=== PATIENT | male | born 1965 | race Caucasian/White ===

== ENCOUNTER 2024-06-24 10:07 | Outpatient (AMB) | payer OTHER, SELFPAY ==
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
== END 2024-06-24 11:15 | disposition home or self-care (01) ==
LOC: HO.HOP 10:07
PROVIDERS: PCP Physician Assistant Medical; Visit Provider Clinical Nurse Specialist Psychiatric/Mental Health
DX: F33.41 Major depressive disorder, recurrent, in partial remission (principal); F41.1 Generalized anxiety disorder; F90.2 Attention-deficit hyperactivity disorder, combined type
CPT/HCPCS: 99215; 99417

== ENCOUNTER → 2024-06-24 10:07 | Outpatient (BNVA) | payer OTHER, SELFPAY | PROVIDERS: PCP Physician Assistant Medical; Visit Provider Clinical Nurse Specialist Psychiatric/Mental Health ==

== ENCOUNTER 2024-08-05 11:43 | Outpatient (AMB) | payer OTHER, SELFPAY ==
--- NOTE | 2024-08-05 11:40 | A.OFFPSYCH_ITS ---
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: depression [employer] Required: No Medication List - Last Reconciled 08/05/24 by Jessica Li APRN blood-glucose sensor (FreeStyle Joey 3 Sensor device) As directed bupropion HCl XL (Wellbutrin XL) 150 mg PO QAM buspirone 10 mg PO BID empagliflozin (Jardiance) 25 mg PO DAILY fenofibrate 160 mg PO DAILY glyburide 2.5 mg PO DAILY insulin aspart (niacinamide) 100 unit/mL (3 mL) (Fiasp FlexTouch U-100 Insulin) subcut insulin glargine U-300 conc (Toujeo SoloStar U-300 Insulin) units subcut lamotrigine 200 mg PO BID levothyroxine (Synthroid) 200 mcg PO DAILY levothyroxine (Synthroid) 50 mcg PO DAILY lisinopril 40 mg PO DAILY lorazepam 1 mg PO DAILY PRN metformin ER 500 mg PO TID metoprolol succinate ER 25 mg PO DAILY niacin ER 1,000 mg PO DAILY omega-3 acid ethyl esters 2 caps PO BID pregabalin 75 mg PO BID rosuvastatin 40 mg PO DAILY sertraline 100 mg PO DAILY tadalafil mg PO tirzepatide (Mounjaro) mg subcut HPI- Psychiatric Chief Complaint: depression HPI Narrative: pt reports mood is improved. He continues to struggle with attention issues. did not start the increased wellbutrin yet- he forgot to product picker the new dose. Overall doing better; increased self care; has restarted with therapist. no SI or HI . Past Psychiatric History: HCC: He is dx with MDD, JAMISON andADHD; dx with ADHD age 42; He and previous provider have been considering Bipolar Ii disorder. He has never been hospitalized; Medication Trials: Ritalin-ineffective Amphetamine salt- ? worse symptoms Subjective Subjective Subjective Medication Compliance: Yes Side effects from medications: No Review of Systems Medical Review of Systems: unchanged Mental Status Exam Mental Status Exam Patient Appearance: Well Grooomed and Appropriate Patient Orientation: Person, Time and Situation Level of Consciousness: Awake and Appropriate Patient Behavior: Appropriate Mood Description: Calm Affect Description: Calm Patient Cognition Impaired: No Ability to Follow Directions: Good Speech Pattern: Appropriate Memory Description: Intact Hallucinations: None Delusions: Not Present Thought Process: Distracted Thought Content: positive for Intact Judgement: [facility] Telehealth Platform: Other (please specify) ([email or web address]) Location of provider rendering services: practice address Location of patient: address on file Patient Identification confirmed using: Name, : Yes Telehealth method: video Patient verbally consented to treatment: Yes Patient informed of any privacy concerns related to visit: Yes Minutes spent on Phone/Video with Pt.: 30 Assessment and Plan Assessment & Plan (1) ADHD (attention deficit hyperactivity disorder), combined type: Status: Acute Code(s): F90.2 - Attention-deficit hyperactivity disorder, combined type (2) JAMISON (generalized anxiety disorder): Status: Acute Code(s): F41.1 - Generalized anxiety disorder (3) Major depressive disorder, recurrent, in partial remission: Status: Acute Code(s): F33.41 - Major depressive disorder, recurrent, in partial remission Plan start wellbutrin XL 150mg qam Medications: Refilled buspirone 10 mg PO BID 180 tabs 1RF lorazepam 1 mg PO DAILY PRN 90 tabs 0RF anxiety/panic sertraline 100 mg PO DAILY 90 tabs 2RF bupropion HCl XL (Wellbutrin XL) 150 mg PO QAM 90 tabs 1RF lamotrigine 200 mg PO BID 180 tabs 1RF Counseling and coordination of Care Pt. Self Management counseling: Maintenance-social rhythm, Sleep hygiene, Behavior activation, General coping skills and Problem solving Medication management counseling: Effectiveness, Side effects, Dosing range, Duration, Drug interaction and Adherence Diagnosis and Prognosis Counseling: Accuracy of diagnosis, Prognosis over time, Impact of diagnosis on life functions, Impact of family relationship, Problematic behaviors secondary to diagnosis and Adequacy of current interventions Details: I spent 40 minutes reviewing the record, seeing the patient and documenting in the medical record. Counseling provided to the patient/caregiver as outlined below. Addressed miriam ent/caregiver concerns regarding current medication regime including effective adherence. Addressed patient/caregiver concerns regarding diagnosis and prognosis including accuracy of diagnosis, prognosis over time, impact of diagnosis. Addressed patient/caregiver concerns regarding impact of recent stressors. 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
--- OUTSIDE RECORDS SUMMARY | 2024-08-10 08:02 | XMS_ITS | Data Portability ---
Author Organization [facility] [id number] Address [address] [place] [id number] Assessment No assessment recorded. Plan of Treatment Reminders Order Date Submit Date Provider Last Modified By Organization Details Last Modified Time Details Appointments None recorded. Lab None recorded. Referral None recorded. Procedures None recorded. Surgeries None recorded. Imaging None recorded. Medication Orders Augmentin 875 mg-125 mg tablet 2023 [id number], [address] [place], [place], [phone], 4 19:13:10 naproxen 500 mg tablet 2023 024 [id number], [address], [place], [id number], 4 19:13:12 Patient TargetsNo targets recorded. Patient InstructionsNo instructions recorded. Reason for Referral None Reported. Medical Equipment None Reported. Allergies Allergen ID Allergen Name Allergen Category Reaction Reaction Severity Criticality Documentation Date Start Date Code Code System Note Provider Name and Address Organization Details Recorded Time [id number] [place] n rash Not available Not available 01/09/2024 74416 1 [facility] 18:15:13 Medications Name Sig Start Date Stop Date Status Note LastModified by Organization Details LastModified Time metformin 500 mg tablet TAKE 2 TABLETS BY MOUTH TWICE DAILY 01/08 completed Not Available Not Available Not Available Augmentin 875 mg-125 mg tablet Take 1 tablet every 12 hours by oral route with meal(s) for 10 days. 2023 active Not Available Not Available Not Avai lable lamotrigine 200 mg tablet TAKE 1 TABLET (200 MG) BY MOUTH IN AM AND PM active Not Available Not Available No t Available glyburide 5 mg tablet TAKE 1 TABLET BY MOUTH DAILY 01/08 completed Not Available Not Available Not Available Glucagon Emergency Kit 1 mg solution for injection active Not Available Not Available No t Available glyburide 2.5 mg tablet active Not Available Not Available Not Available Synthroid 200 mcg tablet TAKE 1 TABLET BY MOUTH EVERY DAY active Not Available Not Available No t Available lisinopril 20 mg tablet TAKE 1 TABLET BY MOUTH TWICE DAILY active Not Available Not Available No t Available sertraline 100 mg tablet TAKE 1 TABLET BY MOUTH EVERY DAY active Not Available Not Available No t Available bupropion HCl SR 100 mg tablet,12 hr sustained-r elease TAKE 1 TABLET BY MOUTH DAILY IN THE MORNING active Not Available Not Available No t Available buspirone 10 mg tablet TAKE 1 TABLET BY MOUTH TWICE A DAY active Not Available Not Available No t Available niacin ER 250 mg tablet,exte nded release TAKE 1 TABLET BY MOUTH THREE TIMES DAILY active Not Available Not Available No t Available Synthroid 50 mcg tablet active Not Available Not Available Not Available metoprolol succinate ER 25 mg tablet,exte nded release 24 hr TAKE 1 TABLET BY MOUTH EVERY DAY active Not Available Not Available No t Available loteprednol etabonate 0.5 % eye drops,suspe nsion SHAKE LIQUID AND INSTILL 1 DROP IN RIGHT EYE 4 TIMES A DAY DIRECTED 01/08 completed Not Available Not Available Not Available lorazepam 1 mg tablet TAKE 1/2 TO 1 TABLET BY MOUTH DAILY NEEDED FOR ANXIETY/P ANIC active Not Available Not Available No t Available lisinopril 40 mg tablet 01/08 completed Not Available Not Available Not Available metformin ER 500 mg tablet,exte nded release 24 hr active Not Available Not Available Not Available naproxen 500 mg tablet Take 1 tablet twice a day by oral route with meal(s) for 10 days. 2023 active Not Available Not Available Not Avai lable rosuvastati n 40 mg tablet active Not Available Not Available Not Available tadalafil 20 mg tablet TAKE 1 TABLET BY MOUTH 30 MINUTES. TO 1 HOUR PRIOR TO SEXUAL ACTIVITY NEEDED active Not Available Not Available No t Available omega-3 acid ethyl esters 1 gram capsule TAKE 2 CAPSULES BY MOUTH TWICE DAILY active Not Available Not Available No t Available fenofibrate 160 mg tablet TAKE 1 TABLET BY MOUTH EVERY DAY active Not Available Not Available No t Available Humalog KwikPen (U-100) Insulin 100 unit/mL subcutaneou s ADMINISTE R 30 UNITS UNDER THE SKIN THREE TIMES DAILY WITH FOOD 01/08 completed Not Available Not Available Not Available Jardiance 25 mg tablet TAKE 1 TABLET BY MOUTH EVERY DAY active Not Available Not Available No t Available Toujeo SoloStar U-300 Insulin 300 unit/mL (1.5 mL) subcutaneou s pen ADMINISTE R 130 UNITS SUBCUATNE UOSLY EVERY DAY active Not Available Not Available No t Available Fiasp FlexTouch U-100 Insulin 100 unit/mL (3 mL) subcutaneou s pen active Not Available Not Available Not Available FreeStyle Joey 2 Sensor kit REPLACE SENSOR EVERY 14 DAYS active Not Available Not Available No t Available Mounjaro 7.5 mg/0.5 mL subcutaneou s pen injector INJECT 7.5MG UNDER THE SKIN ONE DAY A WEEK 01/08 completed Not Available Not Available Not Available Mounjaro 10 mg/0.5 mL subcutaneou s pen injector ADMINISTE R 10 MG UNDER THE SKIN EVERY WEEK active Not Available Not Available No t Available Dexcom G7 Sensor device active Not Available Not Available Not Available Vitals Date Recorded Body height Body mass index (BMI) Body weight Oxygen saturation Oxygen saturation in Arterial blood by Pulse oximetry Heart rate Body temperature Systolic blood pressure Diastolic blood pressure Provider Name and Address Organization Details Last Updated DateTime 4 182.88 cm 33.9 kg/m2 749083. 09 g 97 % 97 % 75 /min 99 [degF] 136 mm[Hg] 71 mm[Hg] Lori Burns PA - [facility] 4 18:13:45 Social History Question Answer Notes LastModified by Organizat ion Details LastModified Time Are You Currently Employed? Yes Information not available 01/09/2024 Have You Had A Flu Shot This Season? Yes Information no t available 01/09/2024 Have You Had Direct Contact, Or Contact During Intimacy, With Monkeypox Rash, Scabs, Or Body Fluids From A Person With Monkeypox? No Information not available 01/09/2024 What Is Your Relationship Status? Information not available 01/09/2024 Do You Use Any Illicit Or Recreational Drugs? No Information not available 01/09/2024 Have You Recently Traveled Abroad? No Information not available 01/09/2024 Do You Or Have You Ever Used Any Other Forms Of Tobacco Or Nicotine? No Information not available 01/09/2024 Sex: Unknown Functional Status None recorded. Mental Status None recorded. Family History Nothing Reported. Medical History No medical history recorded. Past Encounters Encounter ID Performer Location Encounter Start Date Encounter Closed Date Diagnosis/Indication Diagnosis SNOMED-CT Code Diagnosis ICD10 Code [id number] [address] 03/07/2022 17:13:04 03/07/2022 18:48:51 [id number] [place] [id number] [id number] 01/09/2024 17:25:24 01/09/2024 18:49:34 Dental abscess [id number] K04.7 Health Concerns Section Related Observation LastModified by Organization Detai ls LastModified Time None Recorded Concern Status LastModified by Organization Details LastModified Time None Recorded Advance Directives Directive None Recorded Payers Encounter Date Sequence Insurance Name Policy Number Policy Cabrera Covered Member ID Cabrera Member ID Guarantor Name 03/07/2022 1 [facility] [id number] 1 Steve Golden [id number] Steve Golden 01/09/2024 1 [facility] [id number] 1 Steve Golden [id number] Steve Golden Notes Date Note Type Note Provider Name and Address Organization Details Recorded Time 01/09/2024 text/html 58 yo male c/o p t has mouth, nose and ear pain x 4 dHis L side cheek is swollen+ redness+ teeth swollenPain /10 tried ibu w/o much improvement + h/o DM No feverNo chillsNo nauseaNo vomitingNo coughNo sore throatNo Abdominal painNo diarrheaNo myalgiaNo fatigueNo rash H/o DMuncertain A1CBS in 300 range Ger Tabit, DO [address], [place], [address], PA - [facility] 01/09/2024 19:13:16
--- OUTSIDE RECORDS SUMMARY | 2024-08-10 08:02 | XMS_ITS | Continuity of Care Document ---
Author Organization [facility] Address [address] [place] [id number] Care Team Providers Care Core Stacker Name Role Phone Carole Keating Primary Care Physician [place] [facility] [place] 08[place]/24 [facility] [address] [place] [address] Encounter Type: Triage Allergies, Adverse Reactions, Alerts Substance Criticality Severity Reaction Reaction Severity Status Byetta Prefilled Pen Active Medications BD PEN NEEDL [id number] MIS BD PEN NEEDL [id number] MIS, 0 Refills, Maintenance, 06/07/24 9:50:00 AM EDT Start Date: 06/07/24 Status: Ordered Repeat number: 1 BusPIRone By Mouth, 0 Refills, Maintenance, 05/10/20 3:42:00 PM EDT Start Date: 05/10/20 Status: Ordered Repeat number: 1 Cialis 20 mg oral tablet 1 tablet = 20 mg, By Mouth, Daily, # 30 tablet, 0 Refills, Maintenance, 04/23/20 1:23:00 PM EDT, Tablet, [facility] #[id number], 182.88, cm, 04/20/20 13:47:00 EDT, Height Start Date: 04/23/20 Status: Ordered Quantity: 30.0 Unit: tablet Repeat number: 1 Crestor 40 mg oral tablet 1 tablet = 40 mg, By Mouth, Daily, # 30 tablet, 0 Refills, Maintenance, 07/16/16 11:28:36 AM EST, Tablet Start Date: 07/16/16 Status: Ordered Quantity: 30.0 Unit: tablet Repeat number: 1 Durable Medical Equipment See Instructions, Maintenance, Dexcom glucose sensor (CGM), 07/05/23 10:23:00 AM EST, Supply Start Date: 07/05/23 Status: Ordered Repeat number: 1 fenofibrate 160 mg oral tablet 1 tablet = 160 mg, By Mouth, Daily, # 90 tablet, 3 Refills, Maintenance, 06/07/24 10:24:00 AM EDT, Tablet, [facility], Partial fill upon patient request if the prescription is for a schedule II opioid drug., 182, cm, 06/07/24 9:48:00 EDT, Height, 111, kg, 02/26/24 13:55:00 EDT, Dry Weight Start Date: 06/07/24 Status: Ordered Quantity: 90.0 Unit: tablet Repeat number: 4 GlyBURIDE = 10 mg, By Mouth, 2 times a day, 0 Refills, Maintenance, 04/24/16 11:17:51 AM EDT Start Date: 04/24/16 Status: Ordered Repeat number: 1 HumaLOG KwikPen (Concentrated) = 25 units, Subcutaneous Infusion, 3 times a day before meals, 0 Refills, Maintenance, 04/24/16 11:23:03 AM EDT Start Date: 04/24/16 Status: Ordered Repeat number: 1 Jardiance By Mouth, Daily in AM, 0 Refills, Maintenance, 06/02/23 9:48:00 AM EDT, Partial fill upon patient request if the prescription is for a schedule II opioid drug. Start Date: 06/02/23 Status: Ordered Repeat number: 1 lamotrigine 200 mg oral tablet 1 tablet = 200 mg, By Mouth, 2 times a day, # 60 tablet, 0 Refills, Maintenance, 01/26/20 11:01:00 AM EDT, Tablet, [facility] #[id number], 182.88, cm, 06/15/18 9:09:00 EDT, Height Start Date: 01/26/20 Status: Ordered Quantity: 60.0 Unit: tablet Repeat number: 1 levothyroxine 0.025 mg oral tablet 1 tablet = 25 mcg, By Mouth, Daily, # 30 tablet, 0 Refills, Maintenance, 07/16/16 11:27:55 AM EST, Tablet Start Date: 07/16/16 Status: Ordered Quantity: 30.0 Unit: tablet Repeat number: 1 lisinopril 20 mg oral tablet 20 mg, 1, tablet, By Mouth, 2 times a day, # 30 tablet, Refills 0, Maintenance, 04/24/16 11:19:59 AMEDT Start Date: 04/24/16 Status: Ordered Quantity: 30.0 Unit: tablet Repeat number: 1 Lovaza oral capsule 2 capsule = 2,000 mg, By Mouth, 2 times a day, # 360 capsule, 3 Refills, Maintenance, 03/17/24 10:27:00 AM EDT, Capsule, [facility] #[id number], 2 capsule By Mouth 2 times a day,x90 days, 182, cm, 02/26/24 13:55:00 EDT, Height, 111, kg, 02/26/24 13:55:00 EDT, Dry Weight Start Date: 03/17/24 Stop Date: 03/12/25 Status: Ordered Quantity: 360.0 Unit: capsule Repeat number: 4 melatonin 5 mg oral tablet 3 tablet = 15 mg, By Mouth, Daily at bedtime, PRN for insomnia, as needed, # 60 tablet, 0 Refills, Maintenance, 09/24/16 8:42:10 AM EST, Tablet Start Date: 09/24/16 Status: Ordered Quantity: 60.0 Unit: tablet Repeat number: 1 Metformin = 1,000 mg, By Mouth, 2 times a day, 0 Refills, Maintenance, 04/24/16 11:15:06 AM EDT Start Date: 04/24/16 Status: Ordered Repeat number: 1 metoprolol 25 mg oral tablet, extended release 25 mg, 1, tablet, By Mouth, Daily, # 90 tablet, Refills 1, Tot. Refills 1, Maintenance, 02/09/18 8:29:31 AM EDT, Route to Pharmacy Electronically, [address] Start Date: 02/09/18 Stop Date: 08/08/18 Status: Ordered Quantity: 90.0 Unit: tablet Repeat number: 2 Mounjaro 10 mg/0.5 mL subcutaneous solution = 10 mg, Subcutaneous Injection, Every week, rotate injection sites taken on wednesdays, # 4 each, 0 Refills, Maintenance, 07/05/23 10:21:00 AM EST, Solution, Partial fill upon patient request if the prescription is for a schedule II opioid drug. Start Date: 07/05/23 Status: Ordered Quantity: 4.0 Unit: each Repeat number: 1 niacin 250 mg oral tablet 1 tablet = 250 mg, By Mouth, 3 times a day, # 270 tablet, 0 Refills, Maintenance, 03/05/23 11:40:00 AM EDT, Tablet, [facility] #[id number], 182.88, cm, 05/27/21 8:13:00 EDT, Height Start Date: 03/05/23 Stop Date: 06/03/23 Status: Ordered Quantity: 270.0 Unit: tablet Repeat number: 1 Niaspan ER 1000 mg oral tablet, extended release 1 tablet = 1,000 mg, By Mouth, Daily at bedtime, # 90 tablet, 3 Refills, Maintenance, 06/07/24 10:23:00 AM EDT, ER Tablet, [facility], Partial fill upon patient request if the prescription is for a schedule II opioid drug., 182, cm, 06/07/24 9:48:00 EDT, Height, 111, kg, 13:55:00 EDT, Dry Weight Start Date: 06/07/24 Status: Ordered Quantity: 90.0 Unit: tablet Repeat number: 4 sertraline 100 mg oral tablet 1 tablet = 100 mg, By Mouth, Daily, # 30 tablet, 0 Refills, Maintenance, 04/24/16 11:19:29 AM EDT, Tablet Start Date: 04/24/16 Status: Ordered Quantity: 30.0 Unit: tablet Repeat number: 1 Synthroid 0.2 mg oral tablet 1 tablet = 200 mcg, By Mouth, Daily, # 30 tablet, 0 Refills, Maintenance, 04/24/16 11:17:28 AM EDT, Tablet Start Date: 04/24/16 Status: Ordered Quantity: 30.0 Unit: tablet Repeat number: 1 Toujeo SoloStar Subcutaneous Infusion, Daily, 0 Refills, Maintenance, 12/31/16 3:26:13 PM EDT Start Date: 12/31/16 Status: Ordered Repeat number: 1 Wellbutrin By Mouth, 0 Refills, Maintenance, 05/10/20 3:42:00 PM EDT Start Date: 05/10/20 Status: Ordered Repeat number: 1 Problem List Condition Confirmation Course Effective Dates Status Health [facility] Informant Obese class I Confirmed Active Social History Social History Type Response Smoking Status Former smoker; Tobac co user in household: No; Other: QUIT OVER 20 YEARS AGO.; entered on: 04/24/16 Sex Sex Representation Male (finding) Patient Care team information Care Team Personnel Name: Carole Keating Position: Reference Physician Member Role: PCP Address: [address] [place] [address] Telecom: Care Team Related Persons Name: ATILIO BLANDON Insurance Providers Guarantor name: ADELAIDA [facility] Plan Information #: 1 Payer: [employer] Member Number: NA Policy Number: NA Group Number: NA
--- OUTSIDE RECORDS SUMMARY | 2024-08-10 08:03 | XMS_ITS | Continuity of Care Document ---
Author Organization [facility] Address [address] [place] [address] Care Team Providers Care Loader Operator Supervisor Name Role Phone CAROLE SALMERON Primary Care Provider [phone] STACY CORNEJO Life Cycle Assessment Analyst AJAY MANCUSO Staffing Operations Manager [phone] ANGIE SILVERIO Transmission Maintenance Supervisor MICHAEL CAMPOVERDE Awning Hanger Helper ROSA ELENA LESTER Orthopedic Surgeon Assessment Encounter Date Assessment Date Assessment LastModified by Organization Details LastModified Time 07/18/2024 07/18/2024 This service was provided using telemedicine. Patient consented to telehealth phone visit only. Patient was located in the [facility]. Provider was located in the office. No other persons participated in the telemedicine visit except for the patient unless otherwise indicated here. y Total time of visit was 26 minutes. Not available 07/18/2024 14:31:51 Plan of Treatment Reminders Order Date Submit Date Provider Last Modified By Organization Details Last Modified Time Details Appointments Follow Up DM 30 2024 08:30A M Carole Salmeron PA-C Not available Not available Not available Lab None recorded. Referral None recorded. Procedures None recorded. Surgeries None recorded. Imaging None recorded. Medication Orders Paxlovid 300 mg (150 mg x 2)-100 mg tablets in a dose pack 2023 024 [id number], [address] [place] [address], [address], 07/18/2024 14:32:15 Patient TargetsNo targets recorded. Patient Instructions Encounter Date Encounter Id Patient Instructions Last Modified By Organization Details Last Modified Time 07/18/2024 [id number] coronavirus (covid-19): care instructions Not available 07/18/2024 14:32:13 isolation procedures: care instructions Not available 07/18/2024 14:32:13 cough: care instructions [email or web address] Not available 07/18/2024 14:32:13 Reason for Referral None Reported. Problems Name Problem SNOMED Code Status Onset Date Resolution Date Notes Provider Name and Address Organization Details Recorded Time Hypothyr oidism 11062874 Active John Paul Felix amrit, [facility] 6 10:27:02 Hyperten sive disorder 58575756 Completed 03/01/2018 Carolecarloz MEADE-C [address], [place], [address], [facility] 8 17:29:59 Mixed hyperlip idemia 847100772 Active Christiano thompson MD [address], [place], [address], [facility] 6 17:19:44 Depressi ve disorder 22700594 [facility] 15:53[facility] Psychoge cecilio overeati ng 367486516 Active Ludeiden CoverMe-C [address], [place], [address], [facility] 6 16:49:20 Obesity 322211478 Active Carole Eagle MEADE-C [address], [place], [address], [facility] 6 16:49:20 Attentio n deficit hyperact ivity disorder 395027796 Active Carole Eagle MEADE-C [address], [place], [address], [facility] 6 16:49:20 Benign hyperten stephen [id number] Completed 03/01/2018 Bocandy-C [address], [place], [address], [facility] 8 17:33:52 Snoring 85067956 Completed 10/15/2016 Bocandy-C [address], [place], [address], [facility] 7 13:43:06 Muscle pain 82399751 Completed 10/15/2016 Bocandy-C [address], [place], [address], [facility] 7 13:43:20 Essentia l hyperten stephen 23820323 Active Carole RFMarq-C [address], [place], [address], [facility] 6 16:49:20 Recurren t major depressi on [id number] Completed 03/01/2018 Bocandy-C [address], [place], [address], [facility] 8 17:29:46 Major depressi ve disorder 263527936 Completed 07/19/2019 Removal Reason: not specific Suetamera marcus, [facility] 9 16:01:07 Palpitat ions 30174328 Completed 10/15/2016 Bocandy-C [address], [place], [address], [facility] 7 13:43:10 Fatigue 51999169 Completed 10/15/2016 Bocandy-C [address], [place], [address], [facility] 7 13:43:15 Cardiac sarcoido sis 75296870 Active 2016 Bocandy-C [address], [place], [address], [facility] 7 16:45:32 Obstruct larisa sleep apnea syndrome 38783802 Active 2016 Sleep study done 10/08/16. Carole Salmeron HALINA-Estefany [address], [place], [address], [facility] 7 13:42:47 Coronary atherosc lerosis 949072982 Active 2016 cath done in december , 35% RCA lesion Carole Salmeron PA- [address], [place], [address], [facility] 7 21:03:10 Primary erectile dysfunct ion 861190653 Active 2017 Carole Salmeron PA-C [address], [place], [address], [facility] 8 17:39:08 Sleep apnea 67888846 Completed 201807/18/2019 Carole Salmeron PA-C [address], [place], [address], [facility] 9 14:37:23 Major depressi on single episode, in partial remissio n 45736547 Active 2018 Sue marcus [facility] 9 16:25:49 History of SARS-CoV -2 [id number] 9422011 Active 2021 H[place] Yoon, [facility] 2 14:04:42 Long-ter m current use of insulin 079668017 Active 2022 Carole Salmeron PA-C [address], [place], [address], [facility] 3 17:11:31 Bilatera l age-rela piyush cataract [id number] 943176 Active 2022 Sue Adame null, [facility] 3 16:13:21 Uncontro lled type 2 diabetes mellitus 012141025 Active 2022 Sue Deep marcus [facility] 3 11:36:11 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 Procedures Surgical History Date Name Laterality Status Provider Name and Address Organization Details Recorded Time 06/01/20 24 Diabetic Foot Exam (Monofilament) completed Carole Salmeron PA-C [address], [address], [facility] 06/01/2024 11:07:41 12/01/19 24 diabetic retinopathy screening completed Yanique Garcia [facility] 12/21/2023 10:13:58 04/14/20 23 Diabetic Foot Exam (Monofilament) completed Caroel Salmeron PA-C [address] [address], [place], [address], [facility] 04/14/2023 13:12:09 04/01/20 22 Diabetic Foot Exam (Monofilament) completed Carole Salmeron PA-C [address], [address], [facility] 04/01/2022 17:04:34 08/13/20 21 Diabetic Foot Exam (Monofilament) completed Carole Salmeron PA-C [address], [address], [facility] 08/13/2021 11:35:48 03/20/20 21 Diabetic Foot Exam (Monofilament) completed Carole Salmeron PA-C [address], [place], [address], [facility] 03/20/2021 17:06:48 03/07/20 20 Diabetic Foot Exam (Monofilament) cancelled Juliane Decker MA [facility] 03/07/2020 09:46:42 02/22/20 20 Diabetic Foot Exam (Monofilament) cancelled Tori Oh [facility] 02/22/2020 08:41:38 01/27/20 20 Diabetic Foot Exam (Monofilament) cancelled Tori Oh [facility] 01/27/2020 08:50:05 07/18/20 19 Diabetic Foot Exam (Monofilament) completed Carole MEADE-C [address], [place], [address], [facility] 07/18/2019 14:35:48 04/12/20 19 Diabetic Foot Exam (Monofilament) completed Tori Oh [facility] 04/12/2019 09:35:41 11/23/19 19 Colonoscopy completed Sugey Mcdonald [facility] 01/12/2019 15:26:43 08/31/19 19 partial repair of rotator cuff completed Dk Martines MA [facility] 04/01/2022 16:10:32 03/01/20 18 Diabetic Foot Exam (Monofilament) completed Hilary davis MA [facility] 03/01/2018 09:37:13 10/01/18 81 repair of kidney completed Dk Martines MA [facility] 04/01/2022 16:09:26 dental surgical procedure completed Raina Sanchez LPN [facility] 06/01/2024 09:55:40 Imaging Results None recorded. Procedure Notes None recorded. Medical Equipment None Reported. Allergies Allergen ID Allergen Name Allergen Category Reaction Reaction Severity Criticality Documentation Date Start Date Code Code System Note Provider Name and Address Organization Details Recorded Time 59737 Bylance medicatio n rash Not available Not available 01/01/2018 65804 1 RxNorm Carole MEADE-C [address], [facility], [place], [address], [facility] 8 13:34:43 26072 Trulicity medicatio n nausea Not available Not available 04/01/2022 20938 96 RxNorm caroline re nause a at the 2nd dose Dk Martines [place] null, [facility] 2 16:01:30 48645 levothyro xine sodium medicatio n abdominal pain Not available low 02/17/2023 68888 RxNorm Raina Caporale, NURSES AIDE null, [facility] 3 08:44:46 52507 Mounjaro medicatio n diarrhea severe high 07/06/2023 21334 34 RxNorm could not gera ate 10 mg dose Raina Caporale, NURSES AIDE null, [facility] 3 08:44:50 Medications Name Sig Start Date Stop Date Status Note LastModified by Organization Details LastModified Time synthroid 75 mcg tabs active Not Available Not Available Not Available lisinopri l 20 mg tabs 07/22 completed Not Available Not Available Not Available apidra solostar 100 unit/ml sopn active Not Available Not Available Not Available lantus solostar 100 unit/ml sopn active Not Available Not Available Not Available synthroid 125 mcg tabs active Not Available Not Available Not Available glyburide 5 mg tabs 04/11 completed Not Available Not Available Not Available freestyle johanny insulinx 01/23 completed Not Available Not Available Not Available synthroid 100 mcg tabs active Not Available Not Available Not Available synthroid 150 mcg tabs active Not Available Not Available Not Available fenofibra te 160 mg tabs active Not Available Not Available Not Available crestor 20 mg tabs active Not Available Not Available Not Available Prescript ion - Prior Authoriza tion Request active Not Available Not Available Not Available invokana 300 mg tabs active Not Available Not Available Not Available metformin hcl 500 mg tabs active Not Available Not Available Not Available niacin er 500 mg tbcr active Not Available Not Available Not Available sertralin e hcl 50 mg tabs active Not Available Not Available Not Available freestyle insulinx blood glucose test [facility] 06/22 completed Not Available Not Available Not Available amoxicill in 500 mg capsule PLEASE SEE ATTACHED FOR DETAILED DIRECTIO NS active Not Available Not Available No t Available buspirone 5 mg tablet 03/23 completed Not Available Not Available Not Available lamotrigi ne 150 mg tablet Take 1 tablet twice a day by oral route. 03/23 completed Not Available Not Available Not Available metformin 500 mg tablet TAKE 2 TABLETS TWICE A DAY 03/02 completed Not Available Not Available Not Available atorvasta tin 80 mg tablet Take 1 tablet every day by oral route for 90 days. 06/16 completed Not Available Not Available Not Available lamotrigi ne 200 mg tablet TAKE 1 TABLET TWICE A DAY active Not Available Not Available No t Available niacin ER 1,000 mg tablet,ex tended release 24 hr TAKE 1 TABLET AT BEDTIME active Not Available Not Available No t Available azithromy truong 250 mg tablet 01/21 completed Not Available Not Available Not Available glyburide 5 mg tablet TAKE 1 TABLET BY MOUTH DAILY 04/14 completed Not Available Not Available Not Available Glucagon Emergency Kit 1 mg solution for injection Take 1 mg as needed by injectio n route for 90 days. active Not Available Not Available No t Available tramadol 37.5 mg-acetam inophen 325 mg tablet TAKE 2 TABLETS BY MOUTH EVERY 4 TO 6 HOURS NEEDED FOR PAIN RELIEF 06/01 completed Not Available Not Available Not Available fluconazo le 150 mg tablet Take 1 tablet by oral route for 2 days. 03/01 completed Not Available Not Available Not Available glyburide 2.5 mg tablet TAKE 1 TABLET DAILY (DOSE DECREASE ) 06/01 completed Not Available Not Available Not Available Synthroid 200 mcg tablet TAKE 1 TABLET DAILY WITH 50MCG FOR TOTAL DOSE 250MCG. active Not Available Not Available No t Available Synthroid 150 mcg tablet Take 1 tablet every day by oral route for 90 days. 04/11 completed Not Available Not Available Not Available amoxicill in 200 mg-potass ium clavulana te 28.5 mg chewable tablet TAKE 1 TABLET BY MOUTH ONCE DAILY active Not Available Not Available No t Available lisinopri l 20 mg tablet TAKE 1 TABLET BY MOUTH TWICE DAILY 09/17 completed replaced by 40 mg tablet Not Available Not Available Not Available Synthroid 125 mcg tablet Take 1 tablet every day by oral route for 90 days. 2014 active Not Available Not Available Not Avai lable sertralin e 100 mg tablet TAKE 1 TABLET DAILY active Not Available Not Available No t Available penicilli n V potassium 500 mg tablet 01/23 completed Not Available Not Available Not Available bupropion HCl SR 100 mg tablet,12 hr sustained -release Take 1 tablet every day by oral route for 30 days. active Not Available Not Available No t Available lamotrigi ne 25 mg tablet TAKE 2 TABLETS BY MOUTH TWICE DAILY 01/21 completed Not Available Not Available Not Available Synthroid 175 mcg tablet Take 1 tablet every day by oral route for 90 days. 05/21 completed Not Available Not Available Not Available ketorolac 0.5 % eye drops INSTILL 1 DROP RIGHT EYE FOUR TIMES DAILY 12/31 completed Not Available Not Available Not Available oxycodone -acetamin ophen 5 mg-325 mg tablet TAKE 1-2 TABLETS EVERY 6 HOURS NEEDED FOR PAIN 04/01 completed Not Available Not Available Not Available ofloxacin 0.3 % ear drops 11/05 completed Not Available Not Available Not Available amoxicill in 875 mg tablet TAKE 1 TABLET EVERY 12 HOURS DAILY 06/01 completed Not Available Not Available Not Available econazole 1 % topical cream APPLY TO THE AFFECTED AND SURROUND ING AREAS OF SKIN BY TOPICAL ROUTE 2 TIMES PER DAY 04/12 completed Not Available Not Available Not Available cephalexi n 500 mg capsule TAKE 1 CAPSULE BY MOUTH FOUR TIMES DAILY FOR INFECTIO N 04/01 completed Not Available Not Available Not Available tobramyci n 0.3 % eye drops 12/31 completed Not Available Not Available Not Available buspirone 10 mg tablet TAKE 1 TABLET TWICE A DAY active Not Available Not Available No t Available niacin ER 250 mg tablet,ex tended release TAKE 1 TABLET BY MOUTH THREE TIMES DAILY active Not Available Not Available No t Available Synthroid 50 mcg tablet TAKE 1 TABLET DAILY WITH 200MCG DOSE FOR TOTAL DOSE 250MCG active Not Available Not Available No t Available metoprolo l succinate ER 25 mg tablet,ex tended release 24 hr TAKE 1 TABLET DAILY active Not Available Not Available No t Available lotepredn ol etabonate 0.5 % eye drops,sheila pension 04/14 completed Not Available Not Available Not Available lorazepam 1 mg tablet TAKE 1 TABLET DAILY NEEDED FOR ANXIETY/ PANIC active Not Available Not Available No t Available Viagra 100 mg tablet Take 1 tablet every day by oral route for 6 days. 03/01 completed Not Available Not Available Not Available dexametha sone 0.5 mg tablet 01/01 completed Not Available Not Available Not Available lisinopri l 40 mg tablet Take 1 tablet every day by oral route for 90 days. active Not Available Not Available No t Available ondansetr on 4 mg disintegr ating tablet 08/14 completed Not Available Not Available Not Available metformin ER 500 mg tablet,ex tended release 24 hr 3 po QD with food active Not Available Not Available No t Available sertralin e 50 mg tablet TAKE 1 TABLET BY MOUTH ONCE DAILY 05/21 completed Not Available Not Available Not Available doxycycli ne hyclate 100 mg tablet TAKE 1 TABLET BY MOUTH TWICE DAILY 11/05 completed Not Available Not Available Not Available lamotrigi ne 100 mg tablet Take 1 tablet every day by oral route for 30 days. 03/23 completed Not Available Not Available Not Available naproxen 500 mg tablet TAKE 1 TABLET TWICE A DAY BY ORAL ROUTE WITH MEAL(S) FOR 10 DAYS. 06/01 completed Not Available Not Available Not Available amoxicill in 875 mg-potass ium clavulana te 125 mg tablet TAKE 1 TABLET EVERY 12 HOURS BY ORAL ROUTE WITH MEAL(S) FOR 10 DAYS. 03/02 completed Not Available Not Available Not Available oxycodone 5 mg tablet Take 1 tablet twice a day by oral route. 07/02 completed Not Available Not Available Not Available Vitamin D3 25 mcg (1,000 unit) capsule TAKE 1 CAPSULE BY MOUTH DAILY 03/23 completed Not Available Not Available Not Available moxifloxa truong 0.5 % eye drops INSTILL 1 DROP IN RIGHT EYE THREE TIMES DAILY EVERY DAY 12/31 completed Not Available Not Available Not Available rosuvasta tin 40 mg tablet Take 1 tablet every day by oral route in the evening for 90 days. active Not Available Not Available No t Available Crestor 20 mg tablet 1 po qd 10/27 completed Not Available Not Available Not Available bupropion HCl XL 300 mg 24 hr tablet, extended release Take 1 tablet every day by oral route for 30 days. 09/13 completed Not Available Not Available Not Available bupropion HCl XL 150 mg 24 hr tablet, extended release TAKE 1 TABLET EVERY MORNING active Not Available Not Available No t Available tadalafil 20 mg tablet TAKE 1 TABLET 30 MINUTES TO1 HOUR PRIOR TO SEXUAL ACTIVITY NEEDED active Not Available Not Available No t Available Readi-Cat 2 2.1 % (w/v), 2.0 % (w/w) oral suspensio n Take 450 mL twice a day by oral route as directed for 1 day. 04/12 completed Not Available Not Available Not Available omega-3 acid ethyl esters 1 gram capsule TAKE 2 CAPSULES BY MOUTH TWICE DAILY active Not Available Not Available No t Available fenofibra te 160 mg tablet TAKE 1 TABLET DAILY active Not Available Not Available No t Available pregabali n 75 mg capsule 1 cap daily as needed 07/18 completed Not Available Not Available Not Available chlorhexi dine gluconate 0.12 % mouthwash RINSE MOUTH WITH 15ML (1 CAPFUL) FOR 30 SECONDS IN MORNING AND EVENING AFTER BRUSHING , THEN SPIT active Not Available Not Available No t Available vitamin B complex take 1 tab once a day po 03/01 completed Not Available Not Available Not Available Fish Oil take 1 cap. daily po 03/01 completed Not Available Not Available Not Available BD Ultra-Fin e Short Pen Needle 31 gauge x 5/16 INJECT SUBCUATN EOUSLY FOUR TIMES A DAY active Not Available Not Available No t Available metformin ER 500 mg 24 hr tablet,ex tended release (gastric retention ) 2 po BID with food 2014 active Not Available Not Available Not Avai lable Lantus Solostar U-100 Insulin 100 unit/mL (3 mL) subcutane ous pen INJECT 90 UNITS EVERY DAY subcutan eously 06/16 completed Not Available Not Available Not Available Humalog KwikPen (U-100) Insulin 100 unit/mL subcutane ous INJECT 30 UNITS SUBCUTAN EOUSLY 3 TIMES A DAY WITH MEALS 01/03 completed replaced by Fiasp due to formular y change Not Available Not Available Not Available Apidra SoloStar U-100 Insulin 100 unit/mL subcutane ous pen INJECT 20 UNITS IN AM AND AT SUPPER, AND 12-15 UNITS AT LUNCH. 06/01 completed Not Available Not Available Not Available GaviLyte- G 236 gram-22.7 4 gram-6.74 gram-5.86 gram oral solution 01/11 completed Not Available Not Available Not Available cholecalc iferol (vitamin D3) 75 mcg (3,000 unit) tablet Take 1 tablet every day by oral route as directed for 30 days. 07/22 completed Not Available Not Available Not Available Freestyle InsuLinx strips TEST three times a day 06/22 completed Not Available Not Available Not Available Invokana 300 mg tablet TAKE 1 TABLET BY MOUTH DAILY BEFORE FIRST MEAL OF THE DAY 06/01 completed Not Available Not Available Not Available Jardiance 25 mg tablet TAKE 1 TABLET DAILY active Not Available Not Available No t Available Trulicity 1.5 mg/0.5 mL subcutane ous pen injector ADMINIST ER 1.5 MG UNDER THE SKIN EVERY WEEK 04/01 completed Not Available Not Available Not Available Trulicity 0.75 mg/0.5 mL subcutane ous pen injector ADMINIST ER 0.75 MG UNDER THE SKIN EVERY WEEK 04/01 completed Not Available Not Available Not Available Toujeo SoloStar U-300 Insulin 300 unit/mL (1.5 mL) subcutane ous pen ADMINIST ER 120 UNITS UNDER THE SKIN EVERY DAY 2023 active Not Available Not Available Not Avai lable Fish Oil 1,000 mg (120 mg-180 mg) capsule Take 1 capsule every day by oral route. 11/27 completed Not Available Not Available Not Available Fiasp FlexTouch U-100 Insulin 100 unit/mL (3 mL) subcutane ous pen Inject 30 units 3 times a day by subcutan eous route for 90 days. 2023 active Not Available Not Available Not Avai lable Rybelsus 3 mg tablet Take 1 tablet every day by oral route for 30 days. 08/13 completed Not Available Not Available Not Available FreeStyle Joey 2 Sensor kit REPLACE SENSOR EVERY 14 DAYS 04/04 completed Not Available Not Available Not Available FreeStyle Joey 2 [place] USE DIRECTED 08/29/ 2023 08/05 /2024 completed Not Available Not Available Not Available Paxlovid 300 mg (150 mg x 2)-100 mg tablets in a dose pack TAKE 3 TABLETS BY MOUTH TWICE A DAY DIRECTED FOR 5 DAYS active Not Available Not Available No t Available Mounjaro 7.5 mg/0.5 mL subcutane ous pen injector INJECT 7.5MG UNDER THE SKIN ONE DAY A WEEK 07/06 completed PA approved thru 06/12/26 Not Available Not Available Not Available Mounjaro 5 mg/0.5 mL subcutane ous pen injector ADMINIST ER 5 MG UNDER THE SKIN EVERY WEEK 12/31 completed Not Available Not Available Not Available Mounjaro 10 mg/0.5 mL subcutane ous pen injector INJECT 0.5 ML EVERY WEEK BY SUBCUTAN EOUS ROUTE DIRECTED FOR 90 DAYS, FOR DM2. active Not Available Not Available No t Available Mounjaro 2.5 mg/0.5 mL subcutane ous pen injector INJECT 2.5 MG UNDER THE SKIN EVERY WEEK 08/14 completed TAKING 10 MG Not Available Not Available Not Available FreeStyle Joey 3 Plus Sensor device apply one sensor ever 15 days as directed active Not Available Not Available No t Available Vitals None Recorded Social History Question Answer Notes LastModified by Organizat ion Details LastModified Time Tobacco Smoking Status Former Smoker Tori marcus, [facility] 07/18/2019 09:06:36 Do You Have An Advance Directive? No Information not available 07/27/2017 What Is Your Level Of Alcohol Consumption? None Information not available 10/27/2016 Is Blood Transfusion Acceptable In An Emergency? Yes Information not available 10/27/2016 What Is Your Level Of Caffeine Consumption? Moderate 1-2 Coffee Daily Information not available 04/01/2022 How Much Tobacco Do You Chew? None Information not available 07/27/2017 In The 14 Days Before Symptom Onset, Have You Had Close Contact With A Laboratory-confi rmed COVID-19 While That Case Was Ill? No [email or web address] Information not available 03/23/2020 In The 14 Days Before Symptom Onset, Have You Had Close Contact With A Person Who Is Under Investigation For COVID-19 While That Person Was Ill? No Information not available 03/23/2020 Have You Been To An Area Known To Be High Risk For COVID-19? No Information not available 03/23/2020 Are You Currently Employed? Yes Information not available 10/27/2016 What Type Of Diet Are You Following? VEGETARIAN 7 Days Out Of 10 Information not available 04/01/2022 Which Illicit Or Recreational Drugs Have You Used? None Information not available 07/27/2017 Do You Or Have You Ever Used E-cigarettes Or Vape? 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 18+yearssince [email or web address] c Information not available 04/01/2022 Live Alone Or With Others? With Others (Letty) And Son Information not available 10/27/2016 Do You Take Precautions To Prevent Distracted Driving? Yes Information not available 10/27/2016 How Often Do You Need To Have Someone Help You When You Read Instructions, Pamphlets, Or Other Written Material From Your Doctor Or Pharmacy? Never Information not available 10/27/2016 Have You Served In The ? No Information not available 10/27/2016 Have You Or Anyone In Your Household Had Any Of The Following Symptoms In The Last 14 Days: Sore Throat, Cough, Chills, Body Aches For Unknown Reasons, Shortness Of Breath For Unknown Reasons, Loss Of Smell, Loss Of Taste, Fever At Or Greater Than 100 Degrees Fahrenheit? No Information not available 03/23/2020 Are You Or Anyone In Your Household A Health Care Provider Or Emergency Responder? Yes Information not available 03/23/2020 To The Best Of Your Knowledge Have You Been In Close Proximity To Any Individual Who Tested Positive For COVID-19? No Information not available 03/23/2020 What Was The Date Of Your Most Recent Tobacco Screening? 06/01/2024 [email or web address] Information not available 06/01/2024 How Many Children Do You Have? 1 Mark Information not available 07/27/2017 Do You Use Protection During Sex? No Information not available 07/27/2017 Seat Belts Used Routinely Yes Information not available 10/27/2016 Are You Sexually Active? Yes Information not available 07/27/2017 At What Age Did You Start Smoking Tobacco? 16 Quit At 27 [email or web address] Information not available 07/18/2019 Are You Passively Exposed To Smoke? No Information not available 10/27/2016 How Much Tobacco Do You Smoke? 2 PPD Information not available 04/01/2022 Do You Use Any Illicit Or Recreational Drugs? No Information not available 04/01/2022 Do You Use Sunscreen Routinely? Yes Information not available 10/27/2016 How Many Years Have You Smoked Tobacco? 0 Information not available 07/27/2017 Do You Or Have You Ever Used Any Other Forms Of Tobacco Or Nicotine? No Information not available 04/01/2022 Sex: Unknown Functional Status Question Answer Note LastModified by Organizat ion Details LastModified Time Are you able to walk? YESWOREST Information not available 04/01/2022 Are you able to care for yourself? Yes Information not available 10/27/2016 What is your exercise level? Moderate 3 x week walking, hiking Information not available 04/01/2022 Mental Status None recorded. Family History Relationship Description Onset Age of this Age Resolved Age Notes LastModified by Organization Details LastModified Time Mother Myocardial infarction 69 [email or web address] Not available 04/01 16:06:32 Medical History No medical history recorded. Immunizations Vaccine Type Date Status Note Provider Name and Address Organization Details Recorded Time Influenza, MDCK, quadrivalent, preservative 019 completed HANNY Vargas [facility] 08/13/2021 10:18:17 COVID-19, mRNA, LNP-S, PF, 30 mcg/0.3 mL dose 021 completed HANNY Vargas [facility] 08/13/2021 10:18:17 MMR 008 completed HANNY Vargas [facility] 08/13/2021 10:18:17 COVID-19, mRNA, LNP-S, PF, 30 mcg/0.3 mL dose 021 completed HANNY Vargas, [facility] 08/13/2021 10:18:18 influenza, unspecified formulation 015 completed HANNY Vargas, [facility] 08/13/2021 10:18:18 [facility], [facility]:18:18 Influenza, MDCK, quadrivalent, preservative [facility] 10:18:18 influenza, unspecified formulation 014 completed HANNY Vargas [facility] 08/13/2021 10:18:18 influenza, unspecified formulation [facility] 10:18:18 COVID-19, mRNA, LNP-S, PF, 100 mcg/0.5mL dose or 50 mcg/0.25mL dose 022 completed HANNY Mattson [facility] 01/21/2022 14:53:08 pneumococcal polysaccharide PPV23 018 completed HANNY Yoon [facility] 05/13/2022 14:04:29 Tdap 019 completed HANNY Yoon, [facility] 05/13/2022 14:04:29 Influenza, split virus, quadrivalent, PF 016 completed HANNY Yoon, [facility] 05/13/2022 14:04:29 Influenza, MDCK, quadrivalent, PF 022 completed HANNY Castañeda [facility] 04/14/2023 11:05:57 COVID-19, mRNA, LNP-S, bivalent, PF, 30 mcg/0.3 mL dose 022 completed HANNY Castañeda [facility] 04/14/2023 11:05:57 Influenza, MDCK, quadrivalent, PF 023 completed HANNY Vargas [facility] 07/06/2023 12:45:24 COVID-19, mRNA, LNP-S, PF, priscila-sucrose, 30 mcg/0.3 mL 023 completed HANNY Castañeda [facility] 11/18/2023 14:46:19 Influenza, split virus, quadrivalent, PF 017 cancelled patient objection Not Available [facility] 02:22:08 Influenza, split virus, trivalent, PF 024 completed Carole Salmeron PA-C [address], [id number] 06/01/2024 11:06:39 Past Encounters Encounter ID Performer Location Encounter Start Date Encounter Closed Date Diagnosis/Indication Diagnosis SNOMED-CT Code Diagnosis ICD10 Code [id number] Carole Salmeron PA-C [facility] [address] [phone] 07/18/2024 14:11:32 07/18/2024 14:55:17 COVID-19 [id number] U07.1 Health Concerns Section Related Observation LastModified by Organization Detai ls LastModified Time None Recorded Concern Status LastModified by Organization Details LastModified Time None Recorded Payers Encounter Date Sequence Insurance Name Policy Number Policy Cabrera Covered Member ID Cabrera Member ID Guarantor Name 07/18/2024 1 [facility] [place] [id number] 1 Steve Golden [id number] Steve Golden Notes Date Note Type Note Provider Name and Address Organization Details Recorded Time 07/18/2024 text/html 59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 Has symptoms for 2-3 days. THis morning with body aches, fever of 101, dry cough, nasal congestion and headache. Interested in antiviral meds. Carole Salmeron PA-C [address] [address], [place], [phone], [facility] [place] 07/18/2024 14:33:10
--- OUTSIDE RECORDS SUMMARY | 2024-08-10 08:03 | XMS_ITS | Data Portability ---
Author Organization [facility], Main Office Address [address] [place] [address] Care Team Providers Care Machine Shop Worker Name Role Phone CAROLE SALMERON Primary Care Provider [phone] STACY CORNEJO Checkout Operator AJAY MANCUSO 8Th Grade Teacher [phone] ANGIE SILVERIO Civil Preparedness Officer MICHAEL CAMPOVERDE Agricultural Loan Officer ROSA ELENA LESTER Orthopedic Surgeon Assessment Encounter Date Assessment Date Assessment LastModified by Organization Details LastModified Time 07/18/2024 07/18/2024 This service was provided using telemedicine. Patient consented to telehealth phone visit only. Patient was located in the [facility]. Provider was located in the office. No other persons participated in the telemedicine visit except for the patient unless otherwise indicated here. y Total time of visit was 26 minutes. Not available 07/18/2024 14:31:51 Plan of Treatment Reminders Order Date Submit Date Provider Last Modified By Organization Details Last Modified Time Details Appointments Follow Up DM 30 2024 08:30A Harriett Salmeron PA-Estefany Not available Not available Not available Lab CMP, serum or plasma 2022 023 [facility], [address], [place], [address], 08/14/2023 16:45:00 microalbu min, urine 2022 023 [facility], [address], [address], [place], [address], 08/14/2023 17:50:22 TSH, serum or plasma 2022 023 [facility], [address], [address], [place], [address], 08/14/2023 16:58:12 PSA, serum or plasma 2022 023 [facility], [address], [address], [place], [address], 08/14/2023 16:58:11 hemoglobi n A1C, fingersti ck 2023 024 In-Office Order, Internal Use Only DO Not Attach Compendium DO Not Attach Compendium, Do Not Delete/merge, [id number] 11/18/2023 15:06:43 hemoglobi n A1C, fingersti ck 2023 024 In-Office Order, Internal Use Only DO Not Attach Compendium DO Not Attach Compendium, Do Not Delete/merge, [id number] 03/02/2024 09:54:03 CMP, serum or plasma 2023 024 [facility], [address], [address], [place], [address], 03/03/2024 06:08:18 TSH + free T4, serum 2023 024 [facility], [address], [address], [place], [address], 03/03/2024 06:08:17 lipid panel, serum 2023 024 ALEXIS [facility], [address], [address], [place], [address], 08/02/2024 06:07:44 hemoglobi n A1C, fingersti ck 2023 024 In-Office Order, Internal Use Only DO Not Attach Compendium DO Not Attach Compendium, Do Not Delete/merge, [id number] 06/01/2024 11:23:23 BMP, serum or plasma 2023 024 ALEXIS [facility], [address] , [facility] [address], [place], [address], 08/02/2024 06:07:44 TSH + free T4, serum 2023 024 ALEXIS [facility], [address] , [facility] [address], [place], [address], 08/02/2024 06:07:41 Referral diabetic ophthalmo logy referral 2023 024 ALEXIS Not available 12/16/2023 10:49:07 podiatris t referral - Diabetic periphera l neuropath y foot care. 2023 024 [email or web address] Not available 06/01/2024 10:46:14 Procedures None recorded. Surgeries None recorded. Imaging None recorded. Medication Orders Glucagon Emergency Kit 1 mg solution for injection 2023 024 [id number] [address] [facility] [place], [address], 11/18/2023 15:20:36 metformin ER 500 mg tablet,ex tended release 24 hr 2023 024 [facility], [facility], [place], [address], 11/18/2023 15:10:43 Mounjaro 10 mg/0.5 mL subcutane ous pen injector 2023 024 [facility] [address] [facility] [place], [address], 03/02/2024 10:19:38 lisinopri l 40 mg tablet 2023 024 [facility], [place], [address], 03/02/2024 10:20:10 Fiasp FlexTouch U-100 Insulin 100 unit/mL (3 mL) subcutane ous pen 2023 024 [facility], [facility], [place], [address], 06/01/2024 10:25:01 Toujeo SoloStar U-300 Insulin 300 unit/mL (1.5 mL) subcutane ous pen 2023 024 [facility], [facility], [place], [address], 06/01/2024 10:36:54 Paxlovid 300 mg (150 mg x 2)-100 mg tablets in a dose pack 2023 [facility] #0084, [address] [place] [address], [address], 07/18/2024 14:32:15 Patient TargetsNo targets recorded. Patient Instructions Encounter Date Encounter Id Patient Instructions Last Modified By Organization Details Last Modified Time 08/14/2023 [id number] type 2 diabetes: care instructions Not available 08/14/2023 09:04:08 hypoglycemia: ca re instructions Not available 08/14/2023 09:35:32 hypothyroidism: care instructions Not available 08/14/2023 09:04:08 benign prostatic hyperplasia: care instructions Not available 08/14/2023 09:04:08 11/18/2023 [id number] hypoglycemia: ca re instructions Not available 11/18/2023 15:20:33 type 2 diabetes: care instructions Not available 11/18/2023 15:06:41 high blood pressure: care instructions Not available 11/18/2023 15:20:33 learning about high blood pressure Not available 11/18/2023 15:20:33 hypothyroidism: care instructions Not available 11/18/2023 15:20:33 03/02/2024 [id number] hypothyroidism: care instructions Not available 03/02/2024 10:22:31 06/01/2024 [id number] cervical disc disease: care instructions Not available 06/01/2024 10:30:06 sleep apnea: car e instructions Not available 06/01/2024 11:23:23 hypoglycemia: ca re instructions Not available 06/01/2024 11:11:27 type 2 diabetes: care instructions Not available 06/01/2024 11:23:23 high blood pressure: care instructions Not available 06/01/2024 11:23:23 learning about high blood pressure Not available 06/01/2024 11:23:23 hypothyroidism: care instructions Not available 06/01/2024 11:23:23 attention defici t hyperactivity disorder (ADHD) in adults: care instructions Not available 06/01/2024 11:23:23 07/18/2024 [id number] coronavirus (covid-19): care instructions Not available 07/18/2024 14:32:13 isolation procedures: care instructions Not available 07/18/2024 14:32:13 cough: care instructions Not available 07/18/2024 14:32:13 Reason for Referral Diabetic Ophthalmology Refer ral for Uncontrolled type 2 diabetes mellitus Referring Physician: Caroel Salmeron, Internal Medicine, Encounter Date: 11/18/2023 Getter Filler Referral for Diab etic peripheral neuropathy Diabetic peripheral neuropathy foot care. Referring Physician: Carole Salmeron, Internal Medicine, Encounter Date: 06/01/2024 Results Created Date Observation Date Name Description Value Unit Range Abnormal Flag Note LastModifiedBy Organization Detail LastModifiedTime 08/14/2008/14/2023 BASIC METAB OLIC PANEL results Sukumar merida order cance lled via inter face Not Available [facility] [address], [place], [address], 08/14/2023 09:14:42 08/14/20 23 08/14/2023 TSH results Sukumar merida order cance lled via inter face Not Available [facility] [address] [place], [address], 08/14/2023 09:14:44 08/14/20 23 08/14/2023 URINA RY MICRO ALBUM IN results Sukumar merida order cance lled via inter face Not Available [facility] [address] [place], [address], 08/14/2023 09:14:45 08/14/20 23 08/14/2023 PSA SCREE N results Sukumar merida order cance lled via inter face Not Available [facility] [address] [place], [address], 08/14/2023 09:14:46 08/14/20 23 08/14/2023 COMPR EHENS CHARLES METAB OLIC PANL glucose 134 mg/dL (70-99 ) high Not Available [facility] [address] [place], [address], 08/14/2023 16:45:00 08/14/20 23 08/14/2023 COMPR EHENS CHARLES METAB OLIC PANL BUN 25 mg/dL (6-20) high Not Available [facility] [address] [place], [address], 08/14/2023 16:45:00 08/14/20 23 08/14/2023 COMPR EHENS CHARLES METAB OLIC PANL creatinine 1.1 mg/dL (0.7-1 .2) Not Available [facility] [address] [place], [address], 08/14/2023 16:45:00 08/14/20 23 08/14/2023 COMPR EHENS CHARLES METAB OLIC PANL sodium 139 mmol/ L (133-1 45) Not Available [facility] [address] [place], [address], 08/14/2023 16:45:00 08/14/20 23 08/14/2023 COMPR EHENS CHARLES METAB OLIC PANL potassium 4.9 mmol/ L (3.6-5 .2) Not Available [facility] [address] [place], [address], 08/14/2023 16:45:00 08/14/20 23 08/14/2023 COMPR EHENS CHARLES METAB OLIC PANL chloride 103 mmol/ L (98-10 7) Not Available [facility] [address] [place], [address], 08/14/2023 16:45:00 08/14/20 23 08/14/2023 COMPR EHENS CHARLES METAB OLIC PANL bicarbonate 24 mmol/ L (22-29 ) Not Available [facility] [address], [address], 08/14/2023 16:45:00 08/14/20 23 08/14/2023 COMPR EHENS CHARLES METAB OLIC PANL anion gap 12 (4-17) Not Available [facility] [address], [address], 08/14/2023 16:45:00 08/14/20 23 08/14/2023 COMPR EHENS CHARLES METAB OLIC PANL albumin 5.1 gm/dL (3.4-4 .8) high Not Available [facility] [address], [address], 08/14/2023 16:45:00 08/14/20 23 08/14/2023 COMPR EHENS CHARLES METAB OLIC PANL calcium 10.5 mg/dL (8.6-1 0.5) Not Available [facility] [address], [address], 08/14/2023 16:45:00 08/14/20 23 08/14/2023 COMPR EHENS CHARLES METAB OLIC PANL bilirubin,to yessi 0.4 mg/dL (0-1.2 ) Not Available [facility] [address], [address], 08/14/2023 16:45:00 08/14/20 23 08/14/2023 COMPR EHENS CHARLES METAB OLIC PANL total protein 7.5 gm/dL (6.2-8 .2) Not Available [facility] [address] [place], [address], 08/14/2023 16:45:00 08/14/20 23 08/14/2023 COMPR EHENS CHARLES METAB OLIC PANL Ag ratio 2.1 Not Available [facility] [address] [place], [address], 08/14/2023 16:45:00 08/14/20 23 08/14/2023 COMPR EHENS CHARLES METAB OLIC PANL AST 30 U/L (0-40) Not Available [facility] [address], [address], 08/14/2023 16:45:00 08/14/20 23 08/14/2023 COMPR EHENS CHARLES METAB OLIC PANL alk phos 43 U/L (40-12 9) Not Available [facility] [address], [address], 08/14/2023 16:45:00 08/14/20 23 08/14/2023 COMPR EHENS CHARLES METAB OLIC PANL ALT 48 U/L (0-41) high Not Available [facility] [address] [place], [address], 08/14/2023 16:45:00 08/14/20 23 08/14/2023 COMPR EHENS CHARLES METAB OLIC PANL estimated GFR creatinine 77 mL/mi n/1.7 3_M2 Creat inine based estim ated glome rular filtr ation (eGFR ) in adult s is calcu lated using the Natio nal Kidne y Found ation recom martin d 2020 CKD-E PI equat ion. Estim ates GFR from serum creat inine , age and sex. Not Available [facility] [address] [place], [address], 08/14/2023 16:45:00 08/14/20 23 08/14/2023 LIPID PANEL cholesterol, total 131 mg/dL (<200) Not Available [facility] [address] [place], [address], 08/14/2023 16:45:01 08/14/20 23 08/14/2023 LIPID PANEL triglyceride 268 mg/dL (<150) high Not Available [facility] [address] [place], [address], 08/14/2023 16:45:01 08/14/20 23 08/14/2023 LIPID PANEL HDL chol 30 mg/dL (>39) low Not Available [facility] [address] [place], [address], 08/14/2023 16:45:01 08/14/20 23 08/14/2023 LIPID PANEL LDL cholesterol, calculated 47 mg/dL (0-130 ) Not Available [facility] [address] [place], [address], 08/14/2023 16:45:01 08/14/20 23 08/14/2023 LIPID PANEL non HDL cholesterol (calc) 101 mg/dL (<160) Not Available [facility] [address] [place], [address], 08/14/2023 16:45:01 08/14/20 23 08/14/2023 PSA SCREE N PSA 0.3 NG/mL (0-4) TEST PERFO RMED USING THE ANGELICA ELECT ANGELICA MILLU MINES CENCE TOTAL PSA ASSAY . PSA VALUE S OBTAI ALEISHA WITH OTHER ASSAY METHO DS OR KITS CANNO T BE USED INTER PENA EABLY . Not Available [facility] [address] [place], [address], 08/14/2023 16:58:11 08/14/20 23 08/14/2023 TSH TSH 0.49 uIU/m L (0.4-4 .2) Not Available [facility] [address] [place], [address], 08/14/2023 16:58:12 08/14/20 23 08/14/2023 URINA RY MICRO ALBUM IN micro-albumi n <12.0 mg/L (<20) The urine micro album in test is desig aleisha to monit or renal funct ion. When scree bentley for Bence Bolivar prote inuri a, urine elect ropho alverto is recom martin armijo. Not Available [facility] [address] [place], [address], 08/14/2023 17:50:22 08/14/20 23 08/14/2023 URINA RY MICRO ALBUM IN malb/creat ratio Unable to calcul ate mg/gm (0-20) Not Available [facility] [address] [place], [address], 08/14/2023 17:50:22 08/14/20 23 08/14/2023 URINA RY MICRO ALBUM IN urine creat for micro albumin 46.5 mg/dL Not Available [facility] [address] [place], [address], 08/14/2023 17:50:22 11/18/19 24 11/18/2023 hemog lobin A1C, finge rstic k A1C 7.6 % 4-6 abnormal Not Available In-Office Order Internal Use Only DO Not Attach Compendium DO Not Attach Compendium, Do Not Delete/merge, [id number] 11/18/2023 14:46:04 03/02/20 24 03/02/2024 TSH+F REE T4 TSH 0.734 uIU/m L 0.450- 4.500 Not Available [facility] ([facility]) [address] [facility], [place], [address], 03/03/2024 06:08:16 03/02/20 24 03/03/2024 TSH+F REE T4 T4,free(dire ct) 1.39 NG/dL 0.82-1 .77 Not Available [facility] ([facility]) [address] [facility], [place], [address], 03/03/2024 06:08:16 03/02/20 24 03/02/2024 COMP. METAB OLIC PANEL (14) glucose 324 mg/dL 70-99 above high normal Not Available [facility] ([facility]) [address] [facility] [place], [address], 03/03/2024 06:08:18 03/02/20 24 03/02/2024 COMP. METAB OLIC PANEL (14) BUN 40 mg/dL 6-24 above high normal Not Available [facility] ([facility]) [address] [facility] [place], [address], 03/03/2024 06:08:18 03/02/20 24 03/02/2024 COMP. METAB OLIC PANEL (14) creatinine 1.27 mg/dL 0.76-1 .27 Not Available [facility] ([facility]) [address] [facility] [place], [address], 03/03/2024 06:08:18 03/02/20 24 03/02/2024 COMP. METAB OLIC PANEL (14) eGFR 66 mL/mi n/1.7 3 >59 Not Available [facility] ([facility]) [address] [facility] [place], [address], 03/03/2024 06:08:18 03/02/20 24 03/02/2024 COMP. METAB OLIC PANEL (14) BUN/creatini ne ratio 31 9-20 above high normal Not Available [facility] ([facility]) [address] [facility] [place], [address], 03/03/2024 06:08:18 03/02/20 24 03/02/2024 COMP. METAB OLIC PANEL (14) sodium 135 mmol/ L 134-14 4 Not Available [facility] ([facility]) [address] [facility] [place], [address], 03/03/2024 06:08:18 03/02/20 24 03/02/2024 COMP. METAB OLIC PANEL (14) potassium 5.2 mmol/ L 3.5-5. 2 Not Available [facility] ([facility]) [address] [facility] [place], [address], 03/03/2024 06:08:18 03/02/20 24 03/02/2024 COMP. METAB OLIC PANEL (14) chloride 101 mmol/ L 96-106 Not Available [facility] ([facility]) [address] [facility] [place], [address], 03/03/2024 06:08:18 03/02/20 24 03/02/2024 COMP. METAB OLIC PANEL (14) carbon dioxide, total 18 mmol/ L 20-29 below low normal Not Available [facility] ([facility]) [address] [facility] [place], [address], 03/03/2024 06:08:18 03/02/20 24 03/02/2024 COMP. METAB OLIC PANEL (14) calcium 9.8 mg/dL 8.7-10 .2 Not Available [facility] ([facility]) [address] [facility] [place], [address], 03/03/2024 06:08:18 03/02/20 24 03/02/2024 COMP. METAB OLIC PANEL (14) protein, total 7.2 g/dL 6.0-8. 5 Not Available [facility] ([facility]) [address] [place], [address], 03/03/2024 06:08:18 03/02/20 24 03/02/2024 COMP. METAB OLIC PANEL (14) albumin 4.4 g/dL 3.8-4. 9 Not Available [facility] ([facility]) [address] [facility] [place], [address], 03/03/2024 06:08:18 03/02/20 24 03/02/2024 COMP. METAB OLIC PANEL (14) globulin, total 2.8 g/dL 1.5-4. 5 Not Available [facility] ([facility]) [address] [place], [address], 03/03/2024 06:08:18 03/02/20 24 03/02/2024 COMP. METAB OLIC PANEL (14) bilirubin, total 0.3 mg/dL 0.0-1. 2 Not Available [facility] ([facility]) [address] [place], [address], 03/03/2024 06:08:18 03/02/20 24 03/02/2024 COMP. METAB OLIC PANEL (14) alkaline phosphatase 45 IU/L 44-121 Not Available [facility] [address] [place], [address], 03/03/2024 06:08:18 03/02/20 24 03/02/2024 COMP. METAB OLIC PANEL (14) AST (SGOT) 21 IU/L 0-40 Not Available [facility] ([facility]) [address] [place], [address], 03/03/2024 06:08:18 03/02/20 24 03/02/2024 COMP. METAB OLIC PANEL (14) ALT (SGPT) 27 IU/L 0-44 Not Available [facility] ([facility]) [address] [place], [address], 03/03/2024 06:08:18 03/02/20 24 03/02/2024 hemog lobin A1C, finge rstic k A1C 8.5 % 4-6 high Not Available In-Office Order Internal Use Only DO Not Attach Compendium DO Not Attach Compendium, Do Not Delete/merge, [id number] 03/02/2024 09:38:14 06/01/20 24 06/01/2024 hemog lobin A1C, finge rstic k A1C 7.9 % 4-6 abnormal Not Available In-Office Order Internal Use Only DO Not Attach Compendium DO Not Attach Compendium, Do Not Delete/merge, [id number] 06/01/2024 10:00:08 Result Notes None recorded. Problems Name Problem SNOMED Code Status Onset Date Resolution Date Notes Provider Name and Address Organization Details Recorded Time Hypothyr oidism 91736605 [facility] 10:[facility] Hyperten sive disorder 66613168 Completed 03/01/2018 Carole Salmeron PA-C [address], [place], [address], [facility] 8 17:29:59 Mixed hyperlip idemia 924509895 Active Christiano thompson MD [address], [place], [address], [facility] 6 17:19:44 Depressi ve disorder 55288499 Completed 10/27/2016 Connie marcus, [facility] 7 15:53:51 Psychoge cecilio overeati ng 965687034 Active Carole Salmeron PA-C [address], [place], [address], [facility] 6 16:49:20 Obesity 129034327 Active Carole Salmeron PA-C [address], [place], [address], [facility] 6 16:49:20 Attentio n deficit hyperact ivity disorder 309526319 Active Carole Salmeron PA-C [address], [place], [address], [facility] 6 16:49:20 Benign hyperten stephen 93411672 Completed 03/01/2018 Carole Salmeron PA-C [address], [place], [address], [facility] 8 17:33:52 Snoring 81241374 Completed 10/15/2016 Carole [employer]-C [address], [place], [address], [facility] 7 13:43:06 Muscle pain 39271412 Completed 10/15/2016 [employer] [address], [place], [address], [facility] 7 13:43:20 Essentia l hyperten stephen 45090523 Active Carole [employer] [address], [place], [address], [facility] 6 16:49:20 Recurren t major depressi on 46064507 Completed 03/01/2018 [employer] [address], [place], [address], [facility] 8 17:29:46 Major depressi ve disorder 749960868 Completed 07/19/2019 Removal Reason: not specific Sue Adame amrit, [facility] 9 16:01:07 Palpitat ions 80185241 Completed 10/15/2016 [employer] [address], [place], [address], [facility] 7 13:43:10 Fatigue 95767843 Completed 10/15/2016 Carole [employer] [address], [place], [address], [facility] 7 13:43:15 Cardiac sarcoido sis 83810905 Active 2016 Carole [employer] [address], [place], [address], [facility] 7 16:45:32 Obstruct charles sleep apnea syndrome 05762209 Active 2016 Sleep study done 10/08/16. [employer] [address], [place], [address], [facility] 7 13:42:47 Coronary atherosc lerosis 675612508 Active 2016 cath done in december , 35% RCA lesion Carole Salmeron [place]- [address], [place], [address], [facility] 7 21:03:10 Primary erectile dysfunct ion 208539570 Active 2017 Carole Salmeron [place]- [address], [place], [address], [facility] 8 17:39:08 Sleep apnea 09300317 Completed 201807/18/2019 Carole Salmeron [place]- [address], [place], [address], [facility] 9 14:37:23 Major depressi on single episode, in partial remissio n 19199115 Active 2018 Sue marcus [facility] 9 16:25:49 History of SARS-CoV -2 [id number] 6095305 Active 2021 HANNY Yoon, [facility] 2 14:04:42 Long-ter m current use of insulin 250690813 Active 2022 Carole MEADE [address], [place], [address], [facility] 3 17:11:31 Bilatera l age-rela piyush cataract 99892232160 761998 Active 2022 Sue marcus [facility] 3 16:13:21 Uncontro lled type 2 diabetes mellitus 218722065 Active 2022 Sue marcus [facility] 3 11:36:11 Mild nonproli ferative retinopa thy due to type 2 diabetes mellitus 45802865829 9106 Active 2022 Sue marcus [facility] 3 11:40:52 COVID-19 100009255 Active 2023 Carole Salmeron PA-C [address] [address], [place], [address], [facility] 4 14:31:56 Problem Notes None recorded. Procedures Surgical History Date Name Laterality Status Provider Name and Address Organization Details Recorded Time 06/01/20 24 Diabetic Foot Exam (Monofilament) completed Carole Salmeron PA-C [address] [address], [place], [address], [facility] 06/01/2024 11:07:41 12/01/19 24 diabetic retinopathy screening completed Yanique Garcia [facility] 12/21/2023 10:13:58 04/14/20 23 Diabetic Foot Exam (Monofilament) completed Carole Salmeron PA-C [address] [address], [place], [address], [facility] 04/14/2023 13:12:09 04/01/20 22 Diabetic Foot Exam (Monofilament) completed Carole Salmeron PA-C [address] [address], [place], [address], [facility] 04/01/2022 17:04:34 08/13/20 21 Diabetic Foot Exam (Monofilament) completed Carole Salmeron PA-C [address] [address], [place], [address], [facility] 08/13/2021 11:35:48 03/20/20 21 Diabetic Foot Exam (Monofilament) completed Carole Salmeron PA-C [address], [address], [facility] 03/20/2021 17:06:48 03/07/20 20 Diabetic Foot Exam (Monofilament) cancelled Juliane Decker MA [facility] 03/07/2020 09:46:42 02/22/20 20 Diabetic Foot Exam (Monofilament) cancelled Tori Oh [facility] 02/22/2020 08:41:38 01/27/20 20 Diabetic Foot Exam (Monofilament) cancelled Tori Oh [facility] 01/27/2020 08:50:05 07/18/20 19 Diabetic Foot Exam (Monofilament) completed Carole Salmeron PA-C [address] [facility] [address], [place], [address], [facility] 07/18/2019 14:35:48 04/12/20 19 Diabetic Foot Exam (Monofilament) completed Tori Oh [facility] 04/12/2019 09:35:41 11/23/19 19 Colonoscopy completed Sugey Mcdonald [facility] 01/12/2019 15:26:43 08/31/19 19 partial repair of rotator cuff completed Dk Martines MA [facility] 04/01/2022 16:10:32 03/01/20 18 Diabetic Foot Exam (Monofilament) completed Hilary davis MA [facility] 03/01/2018 09:37:13 10/01/18 81 repair of kidney completed Dk Martines MA [facility] 04/01/2022 16:09:26 dental surgical procedure completed Raina Sanchez LPN [facility] 06/01/2024 09:55:40 Imaging Results None recorded. Procedure Notes None recorded. Medical Equipment None Reported. Allergies Allergen ID Allergen Name Allergen Category Reaction Reaction Severity Criticality Documentation Date Start Date Code Code System Note Provider Name and Address Organization Details Recorded Time 17499 Byetta medicatio n rash Not available Not available 01/01/2018 56577 1 RxNorm Carole Salmeron PA-C [address], [place], [address], [facility] 8 13:34:43 34408 Trulicity medicatio n nausea Not available Not available 04/01/2022 37738 96 RxNorm caroline re nause a at the 2nd dose Dk Martines [place] null, [facility] 2 16:01:30 56360 levothyro xine sodium medicatio n abdominal pain Not available low 02/17/2023 14187 RxNorm Raina Tadeoe, SAM null, [facility] 3 08:44:46 16861 Mounjaro medicatio n diarrhea severe high 07/06/2023 12209 34 RxNorm could not gera ate 10 mg dose Rainalandon Tadeoe, YARN WINDER null, [facility] 3 08:44:50 Medications Name Sig [...] Not Available freestyle insulinx blood glucose test strp 06/22 completed Not Available Not Available Not [...] Available lotepredn ol etabonate 0.5 % eye drops,[facility] 04/14 completed Not Available Not Available Not [...] completed Not Available Not Available Not Available Toudelphineo SoloStar U-300 Insulin 300 unit/mL (1.5 mL) [...] Not Available Not Available FreeStyle Joey 2 [place] USE DIRECTED 04/04 completed Not Available Not Available Not [...] MG Not Available Not Available Not Available FreeStMugenUp Joey 3 Plus Sensor device apply one sensor ever 15 days as directed active Not Available Not Available No t Available Vitals Date Recorded Body height Body mass index (BMI) Body weight Heart rate Oxygen saturation Oxygen saturation in Arterial blood by Pulse oximetry Body temperature Systolic blood pressure Diastolic blood pressure Provider Name and Address Organization Details Last Updated DateTime 3 182.88 cm 33.4 kg/m2 619630. 12 g 63 /min 95 % 95 % 98.3 [degF] 138 mm[Hg] 65 mm[Hg] Raina Sanchez LPN [facility] 3 08:40:46 Date Recorded Body height Body mass index (BMI) Body weight Oxygen saturation Oxygen saturation in Arterial blood by Pulse oximetry Heart rate Body temperature Systolic blood pressure Diastolic blood pressure Provider Name and Address Organization Details Last Updated DateTime 4 182.88 cm 32.7 kg/m2 767123. 16 g 98 % 98 % 71 /min 97.9 [degF] 116 mm[Hg] 62 mm[Hg] Dominique Love MA [facility] 4 14:54:49 Date Recorded Body height Body mass index (BMI) Body weight Heart rate Oxygen saturation Oxygen saturation in Arterial blood by Pulse oximetry Body temperature Systolic blood pressure Diastolic blood pressure Provider Name and Address Organization Details Last Updated DateTime 4 182.88 cm 33 kg/m2 201582. 95 g 75 /min 96 % 96 % 98 [degF] 110 mm[Hg] 63 mm[Hg] Hilary herrmann [facility] 4 09:45:39 Date Recorded Body height Body mass index (BMI) Body weight Heart rate Oxygen saturation Oxygen saturation in Arterial blood by Pulse oximetry Body temperature Systolic blood pressure Diastolic blood pressure Provider Name and Address Organization Details Last Updated DateTime 4 182.88 cm 32.3 kg/m2 334621. 08 g 73 /min 95 % 95 % 98.2 [degF] 107 mm[Hg] 63 mm[Hg] Raina Sanchez LPN [facility] 4 09:49:31 Social History Question Answer Notes LastModified by Organizat ion Details LastModified Time Tobacco Smoking Status Former Smoker Tori marcus [facility] 07/18/2019 09:06:36 Do You Have [...] COVID-19 While That Case Was Ill? No Information not available 03/23/2020 In The 14 [...] 07/27/2017 When Did You Quit Smoking? 16+yearssince lastcarlos lynch Information not available 04/01/2022 Live Alone Or [...] Or Greater Than 100 Degrees Fahrenheit? No Needbox ASultJust Fabki Information not available 03/23/2020 Are You Or Anyone In Your Household A Health Care Provider Or Emergency Responder? Yes Needbox ASGT Urologicalki Information not available 03/23/2020 To The Best Of Your Knowledge Have You Been In Close Proximity To Any Individual Who Tested Positive For COVID-19? No [email or web address] Information not available 03/23/2020 What Was The [...] Start Smoking Tobacco? 14 Quit At 27 [email or web address] Information not available 07/18/2019 Are You Passively [...] MDCK, quadrivalent, preservative 019 completed HANNY Vargas [facility] 08/13/2021 10:18:17 COVID-19, mRNA, LNP-S, PF, 30 mcg/0.3 mL dose 021 HANNY Raymundo [facility] 08/13/2021 10:18:17 MMR 008 HANNY Raymundo [facility] 08/13/2021 10:18:17 COVID-19, mRNA, LNP-S, PF, 30 mcg/0.3 mL dose 021 HANNY Raymundo [facility] 08/13/2021 10:18:18 influenza, unspecified formulation 015 HANNY Raymundo [facility] 08/13/2021 10:18:18 influenza, unspecified formulation 019 completed HANNY Vargas, [facility] 08/13/2021 10:18:18 Influenza, MDCK, quadrivalent, preservative 021 completed HANNY Vargas, [facility] 08/13/2021 10:18:18 influenza, unspecified formulation 014 completed HANNY Vargas, [facility] 08/13/2021 10:18:18 influenza, unspecified formulation 018 completed HANNY Vargas, [facility] 08/13/2021 10:18:18 COVID-19, mRNA, LNP-S, PF, 100 mcg/0.5mL dose or 50 mcg/0.25mL dose 022 completed HANNY Mattson, [facility] 01/21/2022 14:53:08 pneumococcal polysaccharide PPV23 018 completed HANNY Yoon, [facility] 05/13/2022 14:04:29 [facility] 14:04:29 Influenza, split virus, quadrivalent, PF 016 completed HANNY Yoon, [facility] 05/13/2022 14:04:29 Influenza, MDCK, quadrivalent, PF 022 completed HANNY Castañeda, [facility] 04/14/2023 11:05:57 COVID-19, mRNA, LNP-S, bivalent, PF, 30 mcg/0.3 mL dose 022 completed HANNY Castañeda [facility] 04/14/2023 11:05:57 Influenza, MDCK, quadrivalent, PF 023 completed HANNY Vargas, [facility] 07/06/2023 12:45:24 COVID-19, mRNA, LNP-S, PF, priscila-sucrose, 30 mcg/0.3 mL 023 completed HANNY Castañeda [facility] 11/18/2023 14:46:19 Influenza, split virus, quadrivalent, PF 017 cancelled patient objection Not Available [facility] 09/17/2019 02:22:08 Influenza, split virus, trivalent, PF 024 completed Carole Salmeron PA-C [address] [facility] [address], [place], [address], [facility] 06/01/2024 11:06:39 Past Encounters Encounter ID Performer Location Encounter Start Date Encounter Closed Date Diagnosis/Indication Diagnosis SNOMED-CT Code Diagnosis ICD10 Code [id number] Dk daniel Main Office [address] [facility] [address] [place] [address] 05/25/2015 15:55:34 05/25/2015 16:49:19 Uncontrolled type 2 diabetes mellitus 943005826 Hypothyroidism 83012634 Hypertensive disorder 38 188626 [id number] Madi Teixeira MD Main Office [address] [address] 09/12/2015 11:05:48 09/12/2015 11:54:57 Uncontrolled type 2 diabetes mellitus 864036831 E11.65 Hypertensive disorder 38 651175 I10 Psychogeni c overeating 651959010 F50.8 Mixed hyperlipidemia 267 282874 E78.2 Hypothyroidism 33532521 E03.9 [id number] Madi Teixeira MD Main Office [address] [facility] [address] [place] [address] 10/24/2015 15:54:58 10/24/2015 16:38:04 Uncontrolled type 2 diabetes mellitus 649579046 E11.65 Snoring 32636431 R06.83 Muscle pain 77321937 M79 .1 Mixed hyperlipidemia 267 703980 E78.2 Hypothyroidism 15907298 E03.9 [id number] Sue Adame Main Office [address] [facility] [address] [place] [address] 01/22/2016 15:37:09 01/22/2016 16:39:05 Uncontrolled type 2 diabetes mellitus 361705575 E11.65 Noncomplia nce with treatment 6310521 Z91.19 Attention deficit hyperactivity disorder 824668245 F90.9 Hypothyroidism 31980527 E03.9 Essential hypertension 13193224 I10 Recurrent major depression 03737661 F33.9 [id number] Christiano Sequeira MD Main Office [address] [place] [address] 02/20/2016 15:59:12 02/20/2016 16:57:40 Uncontrolled type 2 diabetes mellitus 308337175 E11.65 Major depr essive disorder 885536218 F32.9 Hypothyroidism 71050744 E03.9 Muscle pain 91899487 M79 .1 Mixed hyperlipidemia 267 951473 E78.2 [id number] Madi Teixeira MD Main Office [address] [place] [address] 04/11/2016 15:12:28 04/11/2016 15:57:50 Hypothyroidism 64242983 E03.9 Palpitations 54016426 R0 0.2 [id number] Carole Salmeron PA-C Main Office [address] [place] [address] 04/14/2016 09:01:25 04/14/2016 09:59:52 Palpitations 35274701 R00.2 [id number] Carole Salmeron PA-C Main Office [address] [place] [address] 04/15/2016 10:05:42 04/15/2016 10:42:12 Hypothyroidism 73276932 E03.9 Fatigue 18736353 R53.83 [id number] Iram arcos Main Office [address] [place] [address] 05/21/2016 15:59:27 05/21/2016 16:42:27 Major depressive disorder 561707888 F32.9 Influenza vaccine needed 2246772463 106 Z23 Hypothyroidism 33453890 E03.9 Uncontroll ed type 2 diabetes mellitus 001528251 E11.65 [id number] Dk daniel Main Office [address] [place] [address] 07/22/2016 15:56:35 07/22/2016 16:50:02 Uncontrolled type 2 diabetes mellitus 026788633 E11.65 Mixed hyperlipidemia 267 150092 E78.2 Noncomplia nce with treatment 7151087 Z91.19 Hypothyroidism 69852806 E03.9 Essential hypertension 91412486 I10 [id number] Christiano Sequeira MD Main Office [address] [facility] [address] [place] [address] 08/19/2016 08:47:25 08/19/2016 09:38:39 Uncontrolled type 2 diabetes mellitus 632493232 E11.65 Impotence 616798495 N52. 9 Hypothyroidism 08266842 E03.9 Snoring symptoms 2407718 00 R06.83 [id number] Iram arcos Main Office [address] [address] [place] [address] 10/27/2016 15:33:15 10/27/2016 16:40:49 Uncontrolled type 2 diabetes mellitus 362080478 E11.65 Hypothyroidism 37781618 E03.9 Mixed hyperlipidemia 267 522637 E78.2 Body mass index 30+ - obesity 761313485 Z68.36 Cardiac sarcoidosis 7540 3004 D86.85 [id number] Madi Teixeira MD Main Office [address] [address] [place] [address] 01/23/2017 09:03:03 01/23/2017 10:32:13 Uncontrolled type 2 diabetes mellitus 632065945 E11.65 Mixed hyperlipidemia 267 045748 E78.2 [id number] Behzad Gabriel MD Main Office [address] [address] [place] [address] 06/16/2017 10:01:40 06/16/2017 10:59:21 Uncontrolled type 2 diabetes mellitus 989574295 E11.65 Hypothyroidism 29826116 E03.9 Inflammati on of rotator cuff tendon 779611622 M65.811 Exposure t o Hepatitis C virus 788331388 Z20.5 Body mass index 30+ - obesity 184642206 E66.9 Z68.35 Screening for malignant neoplasm of colon 945095746 Z12.11 [id number] Main Office [address] [address] [place] [address] 06/29/2017 09:33:57 06/29/2017 10:38:36 Shoulder tendinitis 338955695 M75.81 Uncontroll ed type 2 diabetes mellitus 306409165 E11.65 Hypertensive disorder 38 267646 I10 Body mass index 30+ - obesity 719498726 E66.9 Z68.36 Attention deficit hyperactivity disorder 856267416 F90.9 [id number] Dk daniel Main Office [address] [place] [address] 07/27/2017 10:28:28 07/27/2017 11:35:18 Immunization refused 570905979 Z28.21 Uncontroll ed type 2 diabetes mellitus 804057450 E11.65 Essential hypertension 27089084 I10 Recurrent major depression 85381708 F33.9 Attention deficit hyperactivity disorder 219906614 F90.9 Body mass index 30+ - obesity 032006628 E66.9 Z68.36 [id number] Iram arcos Main Office [address] [address] [place] [address] 08/18/2017 09:50:29 08/18/2017 10:46:39 Uncontrolled type 2 diabetes mellitus 851989778 E11.65 Attention deficit hyperactivity disorder, predominantly inattentive type 54558901 F90.0 Abnormal foot pulse 6943 7003 R09.89 [id number] Madi Teixeira MD Main Office [address] [address] [place] [address] 01/01/2018 12:57:38 01/01/2018 14:16:45 Uncontrolled type 2 diabetes mellitus 203284883 E11.65 Mixed hyperlipidemia 267 465712 E78.2 Hypothyroidism 98099870 E03.9 Candidiasis of skin 4988 3006 B37.2 Hypertensive disorder 38 585583 I10 [id number] Madi Teixeira MD Main Office [address] [address] [place] [address] 03/01/2018 09:00:07 03/01/2018 10:24:00 Adult health examination 292265903 Z00.00 Mixed hyperlipidemia 267 043296 E78.2 Hypothyroidism 95756576 E03.9 Uncontroll ed type 2 diabetes mellitus 712039740 E11.65 Essential hypertension 98708735 I10 Administra tion of viral vaccine 21623448 Z23 Screening for malignant neoplasm of colon 097626105 Z12.11 Administra tion of pneumococcal vaccine 12717552 Z23 Screening for malignant neoplasm of prostate 071786476 Z12.5 Attention deficit hyperactivity disorder 559457409 F90.9 Obstructiv e sleep apnea syndrome 89570296 G47.33 Coronary atherosclerosis 287585941 I25.10 Cardiac sarcoidosis 7540 3004 D86.85 Major depr essive disorder 596774982 F32.9 Body mass index 30+ - obesity 734722241 E66.9 Z68.36 Primary er ectile dysfunction 356187043 N52.9 [id number] Carole Salmeron PA-C Main Office [address] [facility] [address] [place] [address] 09/13/2018 14:29:34 09/13/2018 15:57:50 Uncontrolled type 2 diabetes mellitus 396796589 E11.65 Essential hypertension 54297926 I10 Hypothyroidism 61461777 E03.9 Screening for malignant neoplasm of colon 516930836 Z12.11 Attention deficit hyperactivity disorder 038930933 F90.9 Major depr essive disorder 668944885 F32.9 Mixed hyperlipidemia 267 157994 E78.2 Body mass index 30+ - obesity 909542289 E66.9 Z68.35 [id number] Carole Salmeron PA-C Main Office [address] [facility] [address] [place] [address] 01/11/2019 09:43:04 01/11/2019 11:03:56 Attention deficit hyperactivity disorder 146557961 F90.9 Hypothyroidism 86635571 E03.9 Essential hypertension 71886046 I10 Uncontroll ed type 2 diabetes mellitus 766469108 E11.65 Administra tion of viral vaccine 77803954 Z23 Mixed hyperlipidemia 267 291320 E78.2 Hernia of anterior abdominal wall 945972581 K43.9 Body mass index 30+ - obesity 224628083 E66.9 Z68.35 [id number] Carole Salmeron PA-C Main Office [address] [facility] [address] [place] [address] 04/12/2019 09:17:50 04/12/2019 10:23:21 Essential hypertension 17929574 I10 Uncontroll ed type 2 diabetes mellitus 447202160 E11.65 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 825098078 E11.3299 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 981471976 E11.39 Hypothyroidism 33298300 E03.9 Body mass index 30+ - obesity 218444371 E66.9 Z68.35 [id number] Sue Adame Main Office [address] [facility] [address] [place] [address] 07/18/2019 08:44:41 07/18/2019 10:11:05 Adult health examination 116571195 Z00.00 Uncontroll ed type 2 diabetes mellitus 461120125 E11.65 Essential hypertension 81445430 I10 Hypothyroidism 30073400 E03.9 Obstructiv e sleep apnea syndrome 87149926 G47.33 Primary er ectile dysfunction 273081877 N52.9 Mixed hyperlipidemia 267 737231 E78.2 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 043518687 E11.3299 Coronary atherosclerosis 735748598 I25.10 Cardiac sarcoidosis 7540 3004 D86.85 Attention deficit hyperactivity disorder 267209312 F90.0 Major depr ession single episode, in partial remission 86542918 F32.4 [id number] Carole Salmeron PA-C Main Office [address] [address] [place] [address] 03/23/2020 11:04:57 03/23/2020 12:22:49 Uncontrolled type 2 diabetes mellitus 303100220 E11.65 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 671450091 E11.3299 Major depr ession single episode, in partial remission 21565023 F32.4 Hypothyroidism 13393874 E03.9 Essential hypertension 44685955 I10 Coronary atherosclerosis 489003231 I25.10 [id number] Carole Salmeron PA-C Main Office [address] [address] [place] [address] 06/22/2020 14:29:22 06/22/2020 15:14:45 Uncontrolled type 2 diabetes mellitus 991849962 E11.65 [id number] Carole Salmeron PA-C [facility] [address] [address] [place] [address] 07/02/2020 08:43:13 07/02/2020 14:37:14 Generalized anxiety disorder 02891895 F41.1 Obstructiv e sleep apnea syndrome 02731528 G47.33 [id number] Carole Salmeron PA-C Main Office [address] [place] [address] 11/27/2020 15:32:42 11/27/2020 16:24:57 Uncontrolled type 2 diabetes mellitus 926023926 E11.65 Essential hypertension 77738636 I10 [id number] Carole Salmeron PA-C Main Office [address] [address] [place] [address] 03/20/2021 15:35:45 03/20/2021 17:00:54 Adult health examination 771152186 Z00.00 Cardiac sarcoidosis 7540 3004 D86.85 Coronary atherosclerosis 690228491 I25.10 Essential hypertension 21583867 I10 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 595592208 E11.3299 Hypothyroidism 17687603 E03.9 Major depr ession single episode, in partial remission 41165148 F32.4 Mixed hyperlipidemia 267 620193 E78.2 Obstructiv e sleep apnea syndrome 49717087 G47.33 Psychogeni c overeating 523412825 F50.89 Uncontroll ed type 2 diabetes mellitus 790755787 E11.65 Attention deficit hyperactivity disorder 576174406 F90.0 Hypoglycemia 216029038 E 16.2 Benign pro static hyperplasia 077051985 N40.0 [id number] Carole Salmeron PA-C Main Office [address] [address] [place] [address] 08/13/2021 09:57:15 08/13/2021 11:19:31 Uncontrolled type 2 diabetes mellitus 128748130 E11.65 Essential hypertension 45355531 I10 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 166794997 E11.39 [id number] Carole Salmeron PA-C Main Office [address] [address] [place] [address] 01/21/2022 14:46:47 01/21/2022 15:45:35 Essential hypertension 57388998 I10 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 298082126 E11.3299 Uncontroll ed type 2 diabetes mellitus 187905187 E11.65 Mixed hyperlipidemia 267 792446 E78.2 Hypothyroidism 26050153 E03.9 [id number] Carole Salmeron PA-C Main Office [address] [address] [place] [address] 04/01/2022 15:53:54 04/01/2022 16:51:09 Adult health examination 703830879 Z00.00 Uncontroll ed type 2 diabetes mellitus 544762682 E11.65 Psychogeni c overeating 845737620 F50.89 Primary er ectile dysfunction 899799712 N52.9 Obstructiv e sleep apnea syndrome 92868383 G47.33 Mixed hyperlipidemia 267 512689 E78.2 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 006856122 E11.3299 Major depr ession single episode, in partial remission 12454219 F32.4 Hypothyroidism 30013341 E03.9 Cardiac sarcoidosis 7540 3004 D86.85 Attention deficit hyperactivity disorder 318584005 F90.0 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 305707759 E11.39 Essential hypertension 51667459 I10 Coronary atherosclerosis 453656254 I25.10 Ingrowing toenail 122593 009 L60.0 Diabetic on insulin 1707 52294 Z79.4 [id number] Deric Salmeron PA-C [facility] [address] [facility] [address] [place] [address] 05/13/2022 10:03:13 05/14/2022 11:21:45 COVID-19 659982294 U07.1 Counseling 474388038 Z71 .9 [id number] Carole Salmeron PA-C Main Office [address] [facility] [address] [place] [address] 07/04/2022 14:25:33 07/04/2022 15:51:46 Uncontrolled type 2 diabetes mellitus 770184305 E11.65 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 222602916 E11.3299 Essential hypertension 07601267 I10 Hypothyroidism 80733706 E03.9 Major depr ession single episode, in partial remission 19675896 F32.4 Diabetic on insulin 1707 75767 Z79.4 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4 Bilateral age-related nuclear cataracts 7446004046 09699 H25.13 Retinopath y due to diabetes mellitus 8873188 E13.319 [id number] Carole Salmeron PA-C Main Office [address] [address] 02/13/2023 08:44:58 02/13/2023 09:52:34 Diabetic on insulin 217023946 Z79.4 Retinopath y due to type 2 diabetes mellitus 143926134 E11.319 Essential hypertension 70010996 I10 Uncontroll ed type 2 diabetes mellitus 063493993 E11.65 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 161594673 E11.3299 Mixed hyperlipidemia 267 306693 E78.2 [id number] Carole Salmeron PA-C Main Office [address] [address] 04/14/2023 11:03:22 04/14/2023 12:16:36 Adult health examination 522759705 Z00.00 Essential hypertension 81766030 I10 Mixed hyperlipidemia 267 952633 E78.2 Uncontroll ed type 2 diabetes mellitus 688786058 E11.65 Retinopath y due to type 2 diabetes mellitus 384970425 E11.319 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 504772215 E11.3299 Long-term current use of insulin 650506792 Z79.4 Attention deficit hyperactivity disorder 128718519 F90.0 Cardiac sarcoidosis 7540 3004 D86.85 Coronary atherosclerosis 321325379 I25.10 Hypothyroidism 40446210 E03.9 Major depr ession single episode, in partial remission 62016803 F32.4 Obstructiv e sleep apnea syndrome 30753571 G47.33 Primary er ectile dysfunction 051143993 N52.9 Psychogeni c overeating 225831284 F50.89 Body mass index 30+ - obesity 505476881 E66.9 Z68.35 Nocturia 530723847 R35.1 [id number] Sue Adame [facility] [address] [address] [place] [address] 07/06/2023 12:38:06 07/06/2023 14:35:11 Adverse reaction to drug 85048414 T50.905A Dehydration 99066212 E86 .0 Retinopath y due to type 2 diabetes mellitus 775320953 E11.3293 [id number] Carole Salmeron PA-C Main Office [address] [address] [place] [address] 08/14/2023 08:27:55 08/14/2023 09:06:26 Uncontrolled type 2 diabetes mellitus 698020587 E11.65 Hypothyroidism 03394691 E03.9 Long-term current use of insulin 006776100 Z79.4 Benign pro static hyperplasia 289682887 N40.0 [id number] Carole Salmeron PA-C Main Office [address] [address] [place] [address] 11/18/2023 14:32:33 11/18/2023 15:25:46 Uncontrolled type 2 diabetes mellitus 184693772 E11.65 Essential hypertension 01866286 I10 Hypothyroidism 81946914 E03.9 Long-term current use of insulin 220512324 Z79.4 [id number] Sue Jacomeo Main Office [address] [address] [place] [address] 03/02/2024 09:33:38 03/02/2024 10:30:01 Mild nonproliferative retinopathy due to type 2 diabetes mellitus 4870183582 17750 E11.3299 Essential hypertension 98091071 I10 Hypothyroidism 62821486 E03.9 [id number] Carole Salmeron PA-C Main Office [address] [address] [place] [address] 06/01/2024 09:30:48 06/01/2024 10:46:14 Adult health examination 666503593 Z00.00 Uncontroll ed type 2 diabetes mellitus 884673817 E11.65 Mild nonpr oliferative retinopathy due to type 2 diabetes mellitus 0404772938 40468 E11.3299 Long-term current use of insulin 315207761 Z79.4 Hypothyroidism 51540216 E03.9 Essential hypertension 32239575 I10 Major depr ession single episode, in partial remission 00318924 F32.4 Mixed hyperlipidemia 267 057027 E78.2 Psychogeni c overeating 035338866 F50.89 Obstructiv e sleep apnea syndrome 77829255 G47.33 Primary er ectile dysfunction 900136737 N52.9 Cardiac sarcoidosis 7540 3004 D86.85 Attention deficit hyperactivity disorder 530596662 F90.0 Needs infl uenza immunization 246216729 Z23 Coronary atherosclerosis 767916239 I25.10 Degenerati on of cervical intervertebral disc 14139163 M50.30 Diabetic p eripheral neuropathy 554511074 E11.40 [id number] Carole Salmeron PA-C [facility] [address] [facility] [address] [place] [address] 07/18/2024 14:11:32 07/18/2024 14:55:17 COVID-19 096497988 U07.1 Health Concerns Section Related Observation LastModified by Organization Detai ls LastModified Time None Recorded Concern Status LastModified by Organization Details LastModified Time None Recorded Advance Directives Directive N: Payers Encounter Date Sequence Insurance Name Policy Number Policy Cabrera Covered Member ID Cabrera Member ID Guarantor Name 08/14/[address] [place] [address] [id number] 1 Steve Golden [id number] Steve Golden 11/18/2023 1 [facility]) [id number] 1 Steve E [place] [id number] Steve Golden 03/02/2024 1 [facility]) [id number] 1 Steve E [place] [id number] Steve Golden 06/01/2024 1 [facility]) [id number] 1 Steve E [place] [id number] Steve Golden 07/18/[address] [place] [address]) [id number] 1 Steve E [place] [id number] Setve Golden Notes Date Note Type Note Provider Name and Address Organization Details Recorded Time 08/14/2023 text/html Diabetes F/URepo rted bypatient.Review finger sticks:fastin-150; pre lunch: ; pre dinner: ; post dinner: 220-250; middle of the night: Context:seeing eye doctor regularly; checking feet regularly; not missing doses of medications; no side effects from medications;not taking aspirin daily Associated Symptoms:no weight gain; no dizziness; no sweats; no headaches; no confusion; no increased thirst; no increased appetite; no increased urination; no blurred vision; no numbness of feet; no calluses on feet;weight loss (8 lbs)Notes:HgA1c is 7.7%. Meds: toujeo 110u, Mounjaro 10 mg weekly, metformin max dose, humalog 10 u TID, Glyburide 2.5 mg daily. Jardiance 25 mg. Pt. uses dexcom G7 , but is not on remote uploads. CGM reviewed and showed no 14 day hypoglycemia. Average glucose was 176, A1c 7.6%. No hypoglycemia seen.Saw ophthalmology a few days ago.Does not see podiatry but checks feet regularly and no loss of sensation.Pt. reports his insurance is not covering Mounjaro and wants replacement with GLP-1 which pt. took Ozempic and Bydureon in the past with suboptimal results and tolerance issues. Insurance also is asking to switch pt's CGM from IPG 2 to Dexcom. Pt. is successfully using current CGM with great results for his diabetic control. Carole Salmeron PA-C [address], [phone], [facility] 08/14/2023 09:35:37 11/18/2023 text/html Diabetes F/URepo rted bypatient.Review finger sticks:fastin-150; pre lunch: ; pre dinner: ; post dinner: 220-250; middle of the night: Context:seeing eye doctor regularly; checking feet regularly; not missing doses of medications; no side effects from medications;not taking aspirin daily Associated Symptoms:no weight gain; no dizziness; no sweats; no headaches; no confusion; no increased thirst; no increased appetite; no increased urination; no blurred vision; no numbness of feet; no calluses on feet;weight loss (8 lbs)Notes:HgA1c is 7.6%. Meds: toujeo 110u, Mounjaro 10 mg weekly, metformin max dose, humalog 10 u TID, Glyburide 2.5 mg daily. Jardiance 25 mg. Pt. uses dexcom G7 , but is not on remote uploads. Reports it does not work as well as Joey . Having occasional random hypoglycemia. Last one reported 5-6 weeks ago at 62. Feels unsafe with dexcom.Saw ophthalmology last year.Does not see podiatry but checks feet regularly and no loss of sensation.Weight : lost 5 lbs since last visit 4 m ago. Blood pressure is stable.Hypertension F/UReported bypatient.Associated Symptoms:no dizziness; no lightheadedness; no chest pain; no shortness of breath; no palpitations; no edema; no calf pain with exertion Lifestyle:limiting/petr iding salt Medications:taking medications as directed; no side effects from medicationNotes:STable HTN. Carole Salmeron PA-C [address], [phone], [facility] 11/18/2023 16:17:50 03/02/2024 text/html Diabetes F/URepo rted bypatient.Review finger sticks:fastin-150; pre lunch: ; pre dinner: ; post dinner: 220-250; middle of the night: Context:seeing eye doctor regularly; checking feet regularly; not missing doses of medications; no side effects from medications;not taking aspirin daily Associated Symptoms:no dizziness; no sweats; no headaches; no confusion; no increased thirst; no increased appetite; no increased urination; no blurred vision; no numbness of feet; no calluses on feet;weight gain (2 lbs);weight loss ( lbs)Notes:HgA1c is 8.5% today from 7.6% last visit. Meds: toujeo 110u, Mounjaro 10 mg weekly, metformin max dose, humalog 30 u TID, Glyburide 2.5 mg daily, Jardiance 25 mg. Pt. uses dexcom G7 , but is not happy with it. Interested in using Joey 3 but insurance is not covering.Saw ophthalmology last year.Does not see podiatry but checks feet regularly and no loss of sensation.Weight : lost 5 lbs since last visit 4 m ago. Blood pressure is stable.Hypertension F/UReported bypatient.Associated Symptoms:no dizziness; no lightheadedness; no chest pain; no shortness of breath; no palpitations; no edema; no calf pain with exertion Lifestyle:limiting/petr iding salt Medications:taking medications as directed; no side effects from medicationNotes:Stable HTN. Sue marcus [facility] 03/28/2024 10:09:15 06/01/2024 text/html Diabetes F/URepo rted bypatient.Review finger sticks:fastin-150; pre lunch: ; pre dinner: ; post dinner: 220-250; middle of the night: Context:seeing eye doctor regularly; checking feet regularly; not missing doses of medications; no side effects from medications;not taking aspirin daily Associated Symptoms:no weight gain; no dizziness; no sweats; no headaches; no confusion; no increased thirst; no increased appetite; no increased urination; no blurred vision; no numbness of feet; no calluses on feet;weight loss (8 lbs)Notes:HgA1c is 7.9%. Meds: toujeo 110u, Mounjaro 10 mg weekly, metformin max dose, apidra 10 u TID, Glyburide 2.5 mg daily. Jardiance 25 mg. Pt. uses dexcopygram , but is not on remote uploads. Reports it does not work as well as IPG . Having occasional random hypoglycemia. Last one reported 5-6 weeks ago at 62. Feels unsafe with dexcom.Saw ophthalmology last year.Does not see podiatry but checks feet regularly and no loss of sensation.Weight : lost 5 lbs since last visit 4 m ago. Blood pressure is stable.Generic HPI TemplateReported bypatient.Notes:59 year old male for annual PE.Last colonoscopy was normal in 2019 . 10 year recall. Vaccines are up to date. PSA normal in July 2023. No urinary complains.Cardiac sarcoid and CAD followed yearly by cardiology. Last visit was just over a year ago.HTN is stable on meds.Mixed hyperlipidemia: TRG were 268 last year, HDL 30. Pt. is on max statin, fenofibrate and omega 3 1 gm daily. .DM. A1c is 7.9% today. Pt. is on glyburide 5 mg one daily, metformin max dose , Toujeo 110 u in the am, Apidra solostar 20 u TID, jardiance 25. Background diabetic retinopathy followed by long chain beamer yearly.BMI is 32.3. Pt. lost 5 lbs since February. Has h/o psychogenic overeating and ADHD. PHQ is 1 today which is much improved, JAMISON is usually in moderate range 17. Pt. stopped seeing therapist regularly. Reports stress at work. Tends to overeat when stressed. Seeing psych prescriber regularly and take meds as directed.hypothyroidis m is stable. Labs due in July.Obstructive sleep apnea. Uses CPAP nightly.Hypertension F/UReported bypatient.Associated Symptoms:no dizziness; no lightheadedness; no chest pain; no shortness of breath; no palpitations; no edema; no calf pain with exertion Lifestyle:limiting/petr iding salt Medications:taking medications as directed; no side effects from medicationNotes:STable HTN. 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 Has symptoms for 2-3 days. THis morning with body aches, fever of 101, dry cough, nasal congestion and headache. Interested in antiviral meds. Carole Salmeron PA-C [address], [phone], [facility] 07/18/2024 14:33:10
== END 2024-08-05 12:12 | disposition home or self-care (01) ==
LOC: HO.HOP 11:43
PROVIDERS: PCP Physician Assistant Medical; Visit Provider Clinical Nurse Specialist Psychiatric/Mental Health
DX: F90.2 Attention-deficit hyperactivity disorder, combined type (principal); F41.1 Generalized anxiety disorder; F33.41 Major depressive disorder, recurrent, in partial remission
CPT/HCPCS: 99214

== ENCOUNTER 2024-10-31 16:15 | Outpatient (AMB) | payer OTHER, SELFPAY ==
--- NOTE | 2024-10-31 16:07 | MHC.OFFVISPS ---
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: No Medication List - Last Reconciled 10/31/24 by Jessica Li APRN blood-glucose sensor (FreeStyle Joey 3 Sensor device) As directed bupropion HCl XL (Wellbutrin XL) 150 mg PO QAM buspirone 10 mg PO BID empagliflozin (Jardiance) 25 mg PO DAILY fenofibrate 160 mg PO DAILY glyburide 2.5 mg PO DAILY insulin aspart (niacinamide) 100 unit/mL (3 mL) (Fiasp FlexTouch U-100 Insulin) subcut insulin glargine U-300 conc (Toujeo SoloStar U-300 Insulin) units subcut lamotrigine 200 mg PO BID levothyroxine (Synthroid) 200 mcg PO DAILY levothyroxine (Synthroid) 50 mcg PO DAILY lisinopril 40 mg PO DAILY lorazepam 1 mg PO DAILY PRN metformin ER 500 mg PO TID metoprolol succinate ER 25 mg PO DAILY niacin ER 1,000 mg PO DAILY omega-3 acid ethyl esters 2 caps PO BID pregabalin 75 mg PO BID rosuvastatin 40 mg PO DAILY sertraline 100 mg PO DAILY tadalafil mg PO tirzepatide (Mounjaro) mg subcut HPI- Psychiatric Chief Complaint: depression HPI Narrative: pt struggling with medical issues - has had positive xrays for pneumonia for 3 motnhs despite antibiotics. Pt reports increased work stress. Hes worried about his father. Pt consistent with meds; fees; meds helpful. NO SI or HI. no reported side effects Past Psychiatric History: HCC: He is dx with MDD, JAMISON andADHD; dx with ADHD age 42; He and previous provider have been considering Bipolar Ii disorder. He has never been hospitalized; Medication Trials: Ritalin-ineffective Amphetamine salt- ? worse symptoms Subjective Subjective Subjective Medication Compliance: Yes Side effects from medications: No Review of Systems Medical Review of Systems: unchanged Mental Status Exam Mental Status Exam Patient Appearance: Appropriate Patient Orientation: Person, Place, Time and Situation Level of Consciousness: Awake and Alert Patient Behavior: Appropriate Mood Description: Calm and Appropriate Affect Description: Calm and Appropriate Patient Cognition Impaired: No Ability to Follow Directions: Good Speech Pattern: Clear and Appropriate Memory Description: Intact Hallucinations: None Delusions: Not Present Thought Process: Intact and Goal Oriented Thought Content: positive for Intact and positive for Goal Oriented Judgement: Good Telehealth Telehealth Telehealth Platform: Other (please specify) (alex.pr) Location of provider rendering services: practice address Location of patient: address on file Patient Identification confirmed using: Name, : Yes Telehealth method: video Patient verbally consented to treatment: Yes Patient informed of any privacy concerns related to visit: Yes Minutes spent on Phone/Video with Pt.: 30 Assessment and Plan Assessment & Plan (1) Major depressive disorder, recurrent, in partial remission: Status: Acute Code(s): F33.41 - Major depressive disorder, recurrent, in partial remission (2) JAMISON (generalized anxiety disorder): Status: Acute Code(s): F41.1 - Generalized anxiety disorder (3) ADHD (attention deficit hyperactivity disorder), combined type: Status: Acute Code(s): F90.2 - Attention-deficit hyperactivity disorder, combined type Plan continue meds as per below return in 3 months for follow up Medications: Refilled bupropion HCl XL (Wellbutrin XL) 150 mg PO QAM 90 tabs 2RF buspirone 10 mg PO BID 180 tabs 2RF sertraline 100 mg PO DAILY 90 tabs 2RF lorazepam 1 mg PO DAILY PRN 90 tabs 2RF anxiety/panic lamotrigine 200 mg PO BID 180 tabs 2RF Counseling and coordination of Care Pt. Self Management counseling: Maintenance-social rhythm, Mod caffeine/ETOH intake, Sleep hygiene, General coping skills and Problem solving Medication management counseling: Effectiveness, Side effects, Dosing range, Duration, Drug interaction and Adherence Diagnosis and Prognosis Counseling: Accuracy of diagnosis, Prognosis over time, Impact of diagnosis on life functions, Impact of family relationship, Problematic behaviors secondary to diagnosis and Adequacy of current interventions Details: I spent 40 minutes reviewing the record, seeing the patient and documenting in the medical record. Counseling provided to the patient/caregiver as outlined below. Addressed patient/caregiver concerns regarding current medication regime including effective adherence. Addressed patient/caregiver concerns regarding diagnosis and prognosis including accuracy of diagnosis, prognosis over time, impact of diagnosis. Addressed patient/caregiver concerns regarding impact of recent stressors. 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
--- OUTSIDE RECORDS SUMMARY | 2024-10-31 18:50 | XMS_ITS | Continuity of Care Document ---
Author Organization [facility] Address [address] [place] [address]- Care Team Providers Care Space Operations Officer Name Role Phone Carole Keating Primary Care Physician Encounter [facility] Date(s): 09/06/24 - 10/06/24 [facility] [address] [place] [id number] Encounter Type: Triage Allergies, Adverse Reactions, Alerts Substance Criticality Severity Reaction Reaction Severity Status Byetta Prefilled Pen Active Medications BD PEN NEEDL [id number] MIS BD PEN NEEDL [id number] MIS, 0 Refills, Maintenance, 06/07/24 9:50:00 AM EDT Start Date: 06/07/24 Status: Ordered Repeat number: 1 BusPIRone By Mouth, 0 Refills, Maintenance, 05/10/20 3:42:00 PM EDT Start Date: 05/10/20 Status: Ordered Repeat number: 1 Cialis 20 mg oral tablet 1 tablet = 20 mg, By Mouth, Daily, # 30 tablet, 0 Refills, Maintenance, 04/23/20 1:23:00 PM EDT, Tablet, [facility] #[id number], 182.88, cm, 04/20/20 13:47:00 EDT, Height Start [...] Refills, Maintenance, 06/07/24 10:24:00 AM EDT, Tablet, [facility], Partial fill upon patient request if [...] Refills, Maintenance, 01/26/20 11:01:00 AM EDT, Tablet, [facility] #[id number], 182.88, cm, 06/15/18 9:09:00 EDT, Height Start [...] day, # 360 capsule, 3 Refills, Maintenance, 08/26/24 2:15:00 PM EST, Capsule, [facility], 2 capsule By Mouth 2 times a day,x90 days, 182, cm, 06/07/24 14:10:00 EDT, Height, 111, kg, 02/26/24 13:55:00 EDT, Dry Weight Start Date: 08/26/24 Stop Date: 08/21/25 Status: Ordered Quantity: 360.0 Unit: capsule Repeat [...] 8:29:31 AM EDT, Route to Pharmacy Electronically, [address] Start Date: 02/09/18 Stop Date: 08/08/18 [...] 3 times a day, # 270 tablet, 3 Refills, Maintenance, 08/26/24 2:15:00 PM EST, Tablet, [facility], 182, cm, 06/07/24 14:10:00 EDT, Height, 111, kg, 02/26/24 13:55:00 EDT, Dry Weight Start Date: 08/26/24 Stop Date: 08/21/25 Status: Ordered Quantity: 270.0 Unit: tablet Repeat number: 4 sertraline 100 [...] Position: Reference Physician Member Role: PCP Address: [address] [place], [place] [address]com: Care Team Related Persons Name: ATILIO BLANDON Insurance Providers Guarantor name: [employer] Plan Information #: 1 Payer: [employer] Member Number: NA Policy Number: NA Group Number: NA
--- OUTSIDE RECORDS SUMMARY | 2024-10-31 18:50 | XMS_ITS | Continuity of Care Document ---
Author Organization [facility] Address [address] [place] [address]- Care Team Providers Care Ear Machine Operator Name Role Phone Carole Keating Primary Care Physician Encounter [facility] Date(s): 09/05/24 - 10/05/24 [facility] [address] [place] [id number] Encounter Type: Triage Allergies, Adverse Reactions, Alerts Substance Criticality Severity Reaction Reaction Severity Status Byetta Prefilled Pen Active Medications BD PEN NEEDL [id number] MIS BD PEN NEEDL [id number] MIS, 0 Refills, Maintenance, 06/07/24 9:50:00 AM EDT Start Date: 06/07/24 Status: Ordered Repeat number: 1 BusPIRone By Mouth, 0 Refills, Maintenance, 05/10/20 3:42:00 PM EDT Start Date: 05/10/20 Status: Ordered Repeat number: 1 Cialis 20 mg oral tablet 1 tablet = 20 mg, By Mouth, Daily, # 30 tablet, 0 Refills, Maintenance, 04/23/20 1:23:00 PM EDT, Tablet, [facility] #[id number], 182.88, cm, 04/20/20 13:47:00 EDT, Height Start [...] Refills, Maintenance, 06/07/24 10:24:00 AM EDT, Tablet, [facility], Partial fill upon patient request if [...] Refills, Maintenance, 01/26/20 11:01:00 AM EDT, Tablet, [facility] #[id number], 182.88, cm, 06/15/18 9:09:00 EDT, Height Start [...] Refills, Maintenance, 08/26/24 2:15:00 PM EST, Capsule, [facility], 2 capsule By Mouth 2 times a [...] 8:29:31 AM EDT, Route to Pharmacy Electronically, [address] Start Date: 02/09/18 Stop Date: 08/08/18 [...] Refills, Maintenance, 08/26/24 2:15:00 PM EST, Tablet, [facility], 182, cm, 06/07/24 14:10:00 EDT, Height, [...] Position: Reference Physician Member Role: PCP Address: [address] [place], [place] [address]com: Care Team Related Persons Name: ATILIO BLANDON Insurance Providers Guarantor name: [facility] Plan Information #: 1 Payer: [employer] Member Number: NA Policy Number: NA Group Number: NA
--- OUTSIDE RECORDS SUMMARY | 2024-10-31 18:50 | XMS_ITS | Data Portability ---
Author Organization [facility] [address] Address [address] [place] [phone] Assessment No assessment recorded. Plan of Treatment Reminders Order Date Submit Date Provider Last Modified By Organization Details Last Modified Time Details Appointments None recorded. Lab None recorded. Referral None recorded. Procedures None recorded. Surgeries None recorded. Imaging None recorded. Medication Orders Augmentin 875 mg-125 mg tablet 2023 [facility][id number], [address], [place], [id number], 4 19:13:10 naproxen 500 mg tablet 2023 024 ADA [facility] #[id number], [address], [place], [id number], 4 19:13:12 Patient TargetsNo targets recorded. Patient InstructionsNo instructions recorded. Reason for Referral None Reported. Medical Equipment None Reported. Allergies Allergen ID Allergen Name Allergen Category Reaction Reaction Severity Criticality Documentation Date Start Date Code Code System Note Provider Name and Address Organization Details Recorded Time [id number] [place] medicatio n rash Not available Not available 01/09/2024 96095 1 [facility] 18:15:13 Medications [...] saturation in Arterial blood by Pulse oximetry Pain severity - 0-10 verbal numeric rating [Score] - Reported Heart rate Body temperature Systolic blood pressure Diastolic blood pressure Provider Name and Address Organization Details Last Updated DateTime 4 182.88 cm 33.9 kg/m2 574852. 09 g 97 % 97 % 6 75 /min 99 [degF] 136 mm[Hg] 71 [...] Diagnosis/Indication Diagnosis SNOMED-CT Code Diagnosis ICD10 Code Diagnosis Note [id number] [address] [phone] 03/07/2022 17:13:04 03/07/2022 18:48:51 [id number] Ger Yoder DO [address] [address] 01/09/2024 17:25:24 01/09/2024 18:49:34 Dental abscess [id number] K04.7 Rx augmentin bid x 10 d for infectionN aprosyn for painReview ed with patient potential adverse side effects of the medication .recommend warm compresses warm salt water garglessof t foodsf/u with dentist FOX - he will go ThursdayPati ent advised to follow up as needed for worsening symptoms or no improvemen tBienvenidoDiscusse d concerning red flags with patient and reasons to follow up in the Emergency Department urgently.P atient expressed understand ing of and agreement with the plan as outlined above. Health Concerns Section Related Observation LastModified by Organization Detai ls LastModified Time None Recorded Concern Status LastModified by Organization Details LastModified Time None Recorded Advance Directives Directive None Recorded Payers Encounter Date Sequence Insurance Name Policy Number Policy Cabrera Covered Member ID Cabrera Member ID Guarantor Name 03/07/[address] [facility] [id number] 1 Steve Golden [id number] Steve Golden 01/09/[address] [facility] [id number] 1 Steve Golden [id number] Steve Golden Notes Date Note Type Note Provider Name and Address Organization Details Recorded Time 01/09/2024 text/html 58 yo male c/o p t has mouth, nose and ear pain x 4 dHis L side cheek is swollen+ redness+ teeth swollenPain 02/07 tried ibu w/o much improvement + h/o DM No feverNo chillsNo nauseaNo vomitingNo coughNo sore throatNo Abdominal painNo diarrheaNo myalgiaNo fatigueNo rash H/o DMuncertain A1CBS in 300 range Ger Yoder, DO [address] [place], [address], [place] - [facility] 01/09/2024 19:13:16
--- OUTSIDE RECORDS SUMMARY | 2024-10-31 18:51 | XMS_ITS | Continuity of Care Document ---
Author Organization [facility], Main Office Address [address] [facility] [address] [place] [address] Care Team Providers Care Employment Supervisor Name Role Phone CAROLE SALMERON Primary Care Provider STACY CORNEJO Principal Examiner JAAY MANCUSO Principal Biostatistician [phone] ANGIE SILVERIO Rod Greaser MICHAEL CAMPOVERDE Head Concierge ROSA ELENA LESTER Orthopedic Surgeon Assessment No assessment recorded. Plan of Treatment Reminders Order Date Submit Date Provider Last Modified By Organization Details Last Modified Time Details Appointments BILLING ONLY 2024 08:45A M MA SCHEDULE Not available Not available Not available Lab hemoglobi n A1C, fingersti ck 2024 025 In-Office Order, Internal Use Only DO Not Attach Compendium DO Not Attach Compendium, Do Not Delete/merge, [id number] 10/19/2024 11:25:34 Referral None recorded. Procedures None recorded. Surgeries None recorded. Imaging XR, chest, 2 view - Persisten t cough for 3 months. Pt. had pneumonia . 2024 025 [facility] (Imaging), [address] [facility], [place], [address], 10/25/2024 11:27:35 Medication Orders Pulmicort Flexhaler 90 mcg/actua tion breath activated 2024 025 [facility] #[id number], [address] [place] [address], [address], 10/19/2024 11:22:34 Mounjaro 10 mg/0.5 mL subcutane ous pen injector 2024 025 [facility] [address] [place], [address], 10/19/2024 10:59:45 Toujeo SoloStar U-300 Insulin 300 unit/mL (1.5 mL) subcutane ous pen 2024 025 [facility] [address] [place], [address], 10/19/2024 11:00:24 metformin ER 500 mg tablet,ex tended release 24 hr 2024 025 [facility], [place], [address], 10/19/2024 11:01:13 lisinopri l 10 mg tablet 2024 025 [facility], [place], [address], 10/19/2024 11:14:13 Patient TargetsNo targets recorded. Patient Instructions Encounter Date Encounter Id Patient Instructions Last Modified By Organization Details Last Modified Time 10/19/2024 [id number] chronic cough: care instructions Not available 10/19/2024 11:21:52 type 2 diabetes: care instructions Not available 10/19/2024 10:59:43 high blood pressure: care instructions Not available 10/19/2024 11:14:11 learning about high blood pressure Not available 10/19/2024 11:14:11 Reason for Referral None Reported. Results Created Date Observation Date Name Description Value Unit Range Abnormal Flag Note LastModifiedBy Organization Detail LastModifiedTime 10/19/19 25 10/19/2024 hemog lobin A1C, finge rstic k A1C 7.8 % 4-6 high Not Available In-Office Order Internal Use Only DO Not Attach Compendium DO Not Attach Compendium, Do Not Delete/merge, [id number] 10/19/2024 10:39:40 09/20/19 25 09/09/2024 XR, chest , 2 view No observ ation record ed. [email or web address] Not Available 09/21 11:19:12 10/25/19 25 10/25/2024 XR, chest , 2 view Examin ation: Chest perfor med on . Histor y: Cough. Findin gs: Fronta l and latera l views of the chest are compar ed to a prior study dated . The cardia c and medias tinal silhou ettes are within normal limits . Elevat ion of the left hemidi aphrag m is seen. There is improv ing left basila r opacit y. Linear scar within the left lower lobe is seen. The osseou s and soft tissue struct ures are unrema rkable . Impres stephen: Left lower lobe scar. WSN: [id number] Orderi ng Physic yulissa: Zohaib Salmeron Dictat ed By: Kareen Nam MD Dictat ed Date/T red: 11:24 a Review ed By: Kareen Nam MD Signed By: Kareen Nam MD Signed Date/T red: 11:24 am Transc ribed By: ANNE Transc ribed Date/T red: 11:23 am Patien t Class: Outpat ient [facility] (Outpt [facility]) [address] [place], [address], 10/25/2024 15:06:23 10/25/19 25 10/25/2024 XR, chest , 2 view No observ ation record ed. [email or web address] [facility] (Imaging) [address] [place], [address], 10/26/2024 08:39:09 Result Notes None recorded. Problems Name Problem SNOMED Code Status Onset Date Resolution Date Notes Provider Name and Address Organization Details Recorded Time Hypothyr oidism 25490698 Active John Paul Felix amrit, [facility] 6 10:27:02 Hyperten sive disorder 85642013 Completed 03/01/2018 Carole Salmeron PA-C [address], [place], [address], [facility] 8 17:29:59 Mixed hyperlip idemia 862200942 Active Christiano thompson MD [address], [place], [address], [facility] 6 17:19:44 Depressi ve disorder 00166172 Completed 10/27/2016 Connie marcus, [facility] 7 15:53:51 Psychoge cecilio overeati ng 590256475 Active Carole Salmeron PA-C [address], [place], [address], [facility] 6 16:49:20 Obesity 366581447 Active Carole Salmeron PA-C [address], [place], [address], [facility] 6 16:49:20 Attentio n deficit hyperact ivity disorder 389522673 Active Carole Salmeron PA-C [address], [place], [address], [facility] 6 16:49:20 Benign hyperten stephen 34040153 Completed 03/01/2018 Carole Salmeron PA-C [address], [place], [address], [facility] 8 17:33:52 Snoring 34383036 Completed 10/15/2016 Carole Salmeron PA-C [address], [place], [address], [facility] 7 13:43:06 Muscle pain 62047765 Completed 10/15/2016 Carole VitaleCaroGen-C [address], [place], [address], [facility] 7 13:43:20 Essentia l hyperten stephen 55967721 Active Carole VitaleCaroGen-C [address], [place], [address], [facility] 6 16:49:20 Recurren t major depressi on 12882428 Completed 03/01/2018 Carole VitaleCaroGen-C [address], [place], [address], [facility] 8 17:29:46 Major depressi ve disorder 527330645 Completed 07/19/2019 Removal Reason: not specific Sue Deep marcus, [facility] 9 16:01:07 Palpitat ions 93815395 Completed 10/15/2016 Carole Salmeron [employer] [address], [place], [address], [facility] 7 13:43:10 Fatigue 17456859 Completed 10/15/2016 Carole Salmeron [employer] [address], [place], [address], [facility] 7 13:43:15 Cardiac sarcoido sis 59183135 Active 2016 Carole Salmeron [employer] [address], [place], [address], [facility] 7 16:45:32 Obstruct larisa sleep apnea syndrome 57558707 Active 2016 Sleep study done 10/08/16. Carole Salmeron [employer] [address], [place], [address], [facility] 7 13:42:47 Coronary atherosc lerosis 879068075 Active 2016 cath done in december , 35% RCA lesion Carole Salmeron PA-C [address], [place], [address], [facility] 7 21:03:10 Primary erectile dysfunct ion 770112672 Active 2017 Carole Eagle MEADE-C [address], [place], [address], [facility] 8 17:39:08 Sleep apnea 59128400 Completed 201807/18/2019 Carolecarloz Salmeron WI-C [address], [place], [address], [facility] 9 14:37:23 Major depressi on single episode, in partial remissio n 04444380 Active 2018 Sue marcus [facility] 9 16:25:49 History of SARS-CoV -2 98938136133 6634846 Active 2021 Cynthia Fox MA null, [facility] 2 14:04:42 Long-ter m current use of insulin 793941205 Active 2022 Carole Salmeron WI-C [address], [place], [address], [facility] 3 17:11:31 Bilatera l age-rela piyush cataract 72266791454 294548 Active 2022 Sue marcus [facility] 3 16:13:21 Uncontro lled type 2 diabetes mellitus 814800690 Active 2022 Sue marcus [facility] 3 11:36:11 COVID-19 142593883 Active 2023 Carole Salmeron WI-C [address], [place], [address], [facility] 4 14:31:56 Pneumoni a 455349713 Active 2024 Carole Salmeron PA-C [address] [address], [place], [address], [facility] 5 14:47:49 Problem Notes None recorded. Procedures Surgical History Date Name Laterality Status Provider Name and Address Organization Details Recorded Time 10/19/19 25 Diabetic Foot Exam (Monofilament) completed Carole Salmeron PA-C [address] [address], [place], [address], [facility] 10/19/2024 12:51:12 06/01/20 24 Diabetic Foot Exam (Monofilament) completed Carole Salmeron PA-C [address] [address], [place], [address], [facility] 06/01/2024 11:07:41 12/01/19 24 diabetic retinopathy screening completed Yanique Garcia [facility] 12/21/2023 10:13:58 04/14/20 23 Diabetic Foot Exam (Monofilament) completed Carole Salmeron PA-C [address] [address], [place], [address], [facility] 04/14/2023 13:12:09 04/01/20 22 Diabetic Foot Exam (Monofilament) completed Carole Salmeron PA-C [address], [address], [facility] 04/01/2022 17:04:34 08/13/20 21 Diabetic Foot Exam (Monofilament) completed Carole Salmeron PA-C [address], [address], [facility] 08/13/2021 11:35:48 03/20/20 21 Diabetic Foot Exam (Monofilament) completed Carole Salmeron PA-C [address], [address], [facility] 03/20/2021 17:06:48 03/07/20 20 Diabetic Foot Exam (Monofilament) cancelled Juliane Decker MA [facility] 03/07/2020 09:46:42 02/22/20 20 Diabetic Foot Exam (Monofilament) cancelled Tori Oh [facility] 02/22/2020 08:41:38 01/27/20 20 Diabetic Foot Exam (Monofilament) cancelled Tori Oh [facility] 01/27/2020 08:50:05 07/18/20 19 Diabetic Foot Exam (Monofilament) completed Carole Salmeron PA-C [address], [place], [address], [facility] 07/18/2019 14:35:48 04/12/20 19 Diabetic Foot Exam (Monofilament) completed Tori Oh [facility] 04/12/2019 09:35:41 11/23/19 19 Colonoscopy completed Sugey Mcdonald [facility] 01/12/2019 15:26:43 08/31/19 19 partial repair of rotator cuff completed Dk Martines MA [facility] 04/01/2022 16:10:32 03/01/20 18 Diabetic Foot Exam (Monofilament) completed Hilary davis MA [facility] 03/01/2018 09:37:13 10/01/18 81 repair of kidney completed Dk Martines MA [facility] 04/01/2022 16:09:26 dental surgical procedure completed Raina Sanchez LPN [facility] 06/01/2024 09:55:40 Imaging Results None recorded. Procedure Notes None recorded. Medical Equipment None Reported. Allergies Allergen ID Allergen Name Allergen Category Reaction Reaction Severity Criticality Documentation Date Start Date Code Code System Note Provider Name and Address Organization Details Recorded Time 86849 Byetta medicatio n rash Not available Not available 01/01/2018 97845 1 RxNorm Carole Salmeron PA-C [address], [place], [address], [facility] 8 13:34:43 37953 Trulicity medicatio n nausea Not available Not available 04/01/2022 05701 96 RxNorm caroline re nause a at the 2nd dose Dk Martines [place] null, [facility] 2 16:01:30 50117 levothyro xine sodium medicatio n abdominal pain Not available low 02/17/2023 98677 RxNorm Raina Caporale, BIOCHEMISTRY SPECIALIST null, [facility] 3 08:44:46 41973 Mounjaro medicatio n diarrhea severe high 07/06/2023 72144 34 RxNorm could not gera ate 10 mg dose Raina Caporale, BIOCHEMISTRY SPECIALIST null, [facility] 3 08:44:50 Medications Name Sig Start Date [...] PLEASE SEE ATTACHED FOR DETAILED DIRECTIO NS 09/02 completed Not Available Not Available Not Available buspirone 5 mg tablet 03/23 completed [...] Not Available doxycycli ne hyclate 100 mg capsule 10/19 completed Not Available Not Available Not Available lamotrigi ne 200 mg tablet TAKE 1 TABLET TWICE A DAY active Not Available Not Available No t Available niacin ER 1,000 mg tablet,ex tended release 24 hr TAKE 1 TABLET AT BEDTIME 09/02 completed Not Available Not Available Not Available azithromy truong 250 mg tablet TAKE 2 TABLETS (500 MG) BY ORAL ROUTE ONCE DAILY FOR 1 DAY THEN 1 TABLET (250 MG) BY ORAL ROUTE ONCE DAILY FOR 4 DAYS active Not Available Not Available No [...] completed Not Available Not Available Not Available benzonata te 200 mg capsule 09/17 completed Not Available Not Available Not Available glyburide 2.5 mg tablet TAKE 1 TABLET DAILY (DOSE DECREASE ) 06/01 completed Not Available Not Available Not Available Synthroid 200 mcg tablet TAKE 1 TABLET DAILY WITH 50MCG FOR TOTAL DOSE OF 250MCG. active Not Available Not Available No [...] day by oral route for 30 days. 09/02 completed Not Available Not Available Not Available lamotrigi ne 25 mg tablet TAKE [...] Not Available Not Available Not Available econazole nitrate 1 % topical cream APPLY TO THE [...] Not Available No t Available lisinopri l 10 mg tablet TAKE 1 TABLET DAILY active Not Available Not Available No t Available niacin ER 250 mg tablet,ex tended release TAKE 1 TABLET BY MOUTH THREE TIMES DAILY active Not Available Not Available No t Available Synthroid 50 mcg tablet TAKE 1 TABLET DAILY WITH 200MCG DOSE FOR TOTAL DOSE OF 250MCG active Not Available Not Available No t Available codeine 10 mg-guaife nesin 100 mg/5 mL oral liquid Take 10 mL every 6 hours by oral route as needed. 10/19 completed Not Available Not Available Not Available metoprolo l succinate ER 25 mg tablet,ex tended release 24 hr TAKE 1 TABLET DAILY active Not Available Not Available No t Available lotepredn ol etabonate 0.5 % eye drops,sheila zhongon 04/14 completed Not Available Not Available Not Available lorazepam 1 mg tablet TAKE 1 TABLET DAILY NEEDED FOR ANXIETY/ PANIC active Not Available Not Available No t Available Viagra 100 mg tablet Take 1 tablet every day by oral route for 6 days. 03/01 completed Not Available Not Available Not Available methylpre dnisolone 4 mg tablets in a dose pack Take 1 dose pk every day by oral route for 6 days. active Not Available Not Available No t Available albuterol sulfate HFA 90 mcg/actua tion aerosol inhaler Inhale 2 puffs every 4 hours by inhalati on route. active Not Available Not Available No t Available dexametha sone 0.5 mg tablet 01/01 completed Not Available Not Available Not Available lisinopri l 40 mg tablet TAKE 1 TABLET DAILY 10/19 completed Takes 20mg 1 tablet twice a day Not Available Not Available Not Available ondansetr on 4 mg disintegr ating tablet 08/14 completed Not Available Not Available Not Available metformin ER 500 mg tablet,ex tended release 24 hr 3 po QD with food 2024 active Not Available Not Available Not Avai lable sertralin e 50 mg tablet TAKE 1 [...] mg-potass ium clavulana te 125 mg tablet Take 1 tablet every 12 hours by oral route for 7 days. 01/18 /2025 completed Not Available Not Available Not Available [...] Not Available rosuvasta tin 40 mg tablet TAKE 1 TABLET DAILY IN THE EVENING active Not Available Not Available No t [...] AND EVENING AFTER BRUSHING , THEN SPIT 09/02 completed Not Available Not Available Not Available vitamin B complex take 1 tab [...] Not Available Not Available Not Avai lable Pulmicort Flexhaler 90 mcg/actua tion breath activated Inhale 2 puffs twice a day by inhalati on route. active Not Available Not Available No t Available Lantus Solostar U-100 Insulin 100 unit/mL (3 [...] 25 mg tablet TAKE 1 TABLET DAILY 2024 active Not Available Not Available Not Avai lable Trulicity 1.5 mg/0.5 mL subcutane ous pen injector ADMINIST ER 1.5 MG UNDER THE SKIN EVERY WEEK 04/01 completed Not Available Not Available Not Available Trulicity 0.75 mg/0.5 mL subcutane ous pen injector ADMINIST ER 0.75 MG UNDER THE SKIN EVERY WEEK 04/01 completed Not Available Not Available Not Available Toujeo SoloStar U-300 Insulin 300 unit/mL (1.5 mL) subcutane ous pen ADMINIST ER 100 UNITS UNDER THE SKIN EVERY DAY active Not Available Not Available No t Available Fish Oil 1,000 mg (120 mg-180 mg) capsule Take 1 capsule every day by oral route. 11/27 completed Not Available Not Available Not Available Fiasp FlexTouch U-100 Insulin 100 unit/mL (3 mL) subcutane ous pen INJECT 30 UNITS 3 TIMES A DAY BY SUBCUTAN EOUS ROUTE FOR 90 DAYS. active Not Available Not Available No t Available Rybelsus 3 mg tablet Take 1 tablet every day by oral route for 30 days. 08/13 completed Not Available Not Available Not Available FreeStyle Joey 2 Sensor kit REPLACE SENSOR EVERY 14 DAYS 04/04 completed Not Available Not Available Not Available FreeStyle Joey 2 Gracey USE DIRECTED 04/04 completed Not Available Not Available Not Available Paxlovid 300 mg (150 mg x 2)-100 mg tablets in a dose pack TAKE 3 TABLETS BY MOUTH TWICE A DAY DIRECTED FOR 5 DAYS 09/02 completed Not Available Not Available Not Available Mounjaro 7.5 mg/0.5 mL subcutane ous pen injector INJECT 7.5MG UNDER THE SKIN ONE DAY A WEEK 07/06 completed PA approved thru 06/12/26 Not Available Not Available Not Available Mounjaro 5 mg/0.5 mL subcutane ous pen injector ADMINIST ER 5 MG UNDER THE SKIN EVERY WEEK 10/19 completed Not Available Not Available Not Available Mounjaro 10 mg/0.5 mL subcutane ous pen injector Inject 0.5 mL every week by subcutan eous route as directed for 30 days, for DM2. active Not Available Not Available No t Available Mounjaro 2.5 mg/0.5 mL subcutane ous pen injector INJECT 2.5 MG UNDER THE SKIN EVERY WEEK 08/14 completed TAKING 10 MG Not Available Not Available Not Available FreeStyle Joey 3 Plus Sensor device active Not Available Not Available Not Available Vitals Date Recorded Body height Body mass index (BMI) Body weight Heart rate Oxygen saturation Oxygen saturation in Arterial blood by Pulse oximetry Body temperature Systolic blood pressure Diastolic blood pressure Provider Name and Address Organization Details Last Updated DateTime 5 182.88 cm 31.2 kg/m2 048425. 25 g 67 /min 96 % 96 % 97.7 [degF] 99 mm[Hg] 62 mm[Hg] Fitz duong [facility] 5 10:48:45 Social History Question Answer Notes LastModified by Organizat ion Details LastModified Time Tobacco Smoking Status Former Smoker Tori Adriano marcus [facility] 07/18/2019 09:06:36 Do You Have An Advance [...] 07/27/2017 When Did You Quit Smoking? 16+yearssince nam Information not available 04/01/2022 Live Alone Or [...] Or Greater Than 100 Degrees Fahrenheit? No [facility] not available 03/23/2020 Are You Or Anyone In Your Household A Health Care Provider Or Emergency Responder? Yes [facility] Information not available 03/23/2020 To The Best Of Your Knowledge Have You Been In Close Proximity To Any Individual Who Tested Positive For COVID-19? No Atomic Reach Information not available 03/23/2020 What Was The [...] Start Smoking Tobacco? 14 Quit At 27 [email or web address] Information not available 07/18/2019 Are You Passively [...] MDCK, quadrivalent, preservative 019 completed HANNY Vargas [facility] 08/13/2021 10:18:17 COVID-19, mRNA, LNP-S, PF, 30 mcg/0.3 mL dose 021 HANNY Raymundo [facility] 08/13/2021 10:18:17 MMR 008 HANNY Raymundo [facility] 08/13/2021 10:18:17 COVID-19, mRNA, LNP-S, PF, 30 mcg/0.3 mL dose 021 HANNY Raymundo [facility] 08/13/2021 10:18:18 influenza, unspecified formulation 015 HANNY Raymundo [facility] 08/13/2021 10:18:18 influenza, unspecified formulation 019 HANNY Raymundo [facility] 08/13/2021 10:18:18 Influenza, MDCK, quadrivalent, preservative 021 HANNY Raymundo [facility] 08/13/2021 10:18:18 influenza, unspecified formulation 014 completed HANNY Vargas, [facility] 08/13/2021 10:18:18 influenza, unspecified formulation 018 completed HANNY Vargas, [facility] 08/13/2021 10:18:18 COVID-19, mRNA, LNP-S, PF, 100 mcg/0.5mL dose or 50 mcg/0.25mL dose 022 completed HANNY Mattson, [facility] 01/21/2022 14:53:08 pneumococcal polysaccharide PPV23 018 completed HANNY Yoon, [facility] 05/13/2022 14:04:29 Tdap 019 completed HANNY Yoon, [facility] 05/13/2022 14:04:29 Influenza, split virus, quadrivalent, PF 016 completed HANNY Yoon, [facility] 05/13/2022 14:04:29 Influenza, MDCK, quadrivalent, PF 022 completed HANNY Castañeda, [facility] 04/14/2023 11:05:57 COVID-19, mRNA, LNP-S, bivalent, PF, 30 mcg/0.3 mL dose 022 completed HANNY Castañeda, [facility] 04/14/2023 11:05:57 Influenza, MDCK, quadrivalent, PF 023 completed HANNY Vargas, [facility] 07/06/2023 12:45:24 COVID-19, mRNA, LNP-S, PF, priscila-sucrose, 30 mcg/0.3 mL 023 completed HANNY Castañeda, [facility] 11/18/2023 14:46:19 Influenza, split virus, quadrivalent, PF 017 cancelled patient objection Not Available [facility] 02:22:08 Influenza, split virus, trivalent, PF 024 completed Carole Salmeron PA-C [address] [facility] [address], [place], [address], [facility] 06/01/2024 11:06:39 Past Encounters Encounter ID Performer Location Encounter Start Date Encounter Closed Date Diagnosis/Indication Diagnosis SNOMED-CT Code Diagnosis ICD10 Code Diagnosis Note [id number] Carole Salmeron PA-C Main Office [address] [facility] [place] [address] 10/19/2024 10:28:31 10/19/2024 11:30:33 Uncontrolled type 2 diabetes mellitus 242103909 E11.65 Improved diabetic control in the last 4 weeks due to restarting mounjaro. PT. is now on 10 mg weekly dose and was able to lower Toujeo by 20 u so far. CGM upload today discussed and showed post meal elevations . Pt. is on Fiasp at 30 u before meals. Recom to continue current treatment and review next upload in october. F/u 3 m. Long-term current use of insulin 492115226 Z79.4 Pt. has glucagon pen. hypoglycem ia reviewed. PT. advised to stop glyburide 2.5 mg Essential hypertension 18314964 I10 Soft blood pressure today and last visit. Recom to lower lisinopril to 10 mg daily and continue metoprolol ER 25 mg. F/u 3 m. Chronic cough 81538393 R 05.3 likely secondary to COVID 3 m ago resulting in pneumonia 6 weeks ago. Recom to start pulmicort Flex haler 2 puffs BID and obtain chest xray. F/u 4 weeks. Health Concerns Section Related Observation LastModified by Organization Detai ls LastModified Time None Recorded Concern Status LastModified by Organization Details LastModified Time None Recorded Payers Encounter Date Sequence Insurance Name Policy Number Policy Cabrera Covered Member ID Cabrera Member ID Guarantor Name 10/19/2024 1 [facility] ([facility]) [id number] 1 Steve Golden [id number] Steve Golden Notes Date Note Type Note Provider Name and Address Organization Details Recorded Time 10/19/2024 text/html Diabetes F/UReported bypatient.Review finger sticks:fastin-150; pre lunch: ; pre [...] calluses on feet;weight gain (2 lbs);weight loss (2 lbs)Notes:HgA1c is 7.8% today from 8.6% 6 weeks ago. Pt. is now back on mounjaro 10 mg for the last 4 weeks . Was able to lower Toujeo from 120 u to 100u daily. metformin 1500 mg daily. Fiasp 30u tid, jardiance 25 mg daily. CGM upload showing 58% of readings on target with elevations mainly post meal for the last 2 weeks. NO hypoglycemia.Saw ophthalmology last year.Does not see podiatry but checks feet regularly and no loss of sensation.Weight : unchanged from last visit. Mild CKD. eGFR is 60.Hypertension F/UReported bypatient.Associate d Symptoms:no dizziness; no lightheadedness; no chest pain; no shortness of breath; no palpitations; no edema; no calf pain with exertion Lifestyle:limiting/ avoiding salt Medications:taking medications as directed; no side effects from medicationNotes:Blo od pressure is low both today and on last visit. Pt. is on lisinopril 20 mg daily and metoprolol ER 25 mg for his arrhythmia. 59 year old diabetic male for f/u. C/o ongoing productive cough with interm wheezing. Had COVID 19 in July that started the cough, then diagnosed with pneumonia on 09/02/24. pneumonia 6 weeks ago. Denies fever, chills. Has white phlegm. Carole Salmeron PA-C [id number] [id number], [place], [id number], [facility] 10/19/2024 12:54:21
--- OUTSIDE RECORDS SUMMARY | 2024-10-31 18:51 | XMS_ITS | Data Portability ---
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 Patient consented to telehealth phone visit only. Patient was located in the [facility]. Provider was located in the office. No other persons participated in the telemedicine visit except for the patient unless otherwise indicated here. y Total time of visit was 26 minutes. Not available 07/18/2024 14:31:51 Plan of Treatment Reminders Order Date Submit Date Provider Last Modified By Organization Details Last Modified Time Details Appointments BILLING ONLY 2024 08:45A M HANNY SCHEDULE Not available Not available Not available Lab hemoglobi n A1C, fingersti ck 2024 025 In-Office Order, Internal Use Only DO Not Attach Compendium DO Not Attach Compendium, Do Not Delete/merge, [id number] 10/19/2024 11:25:34 hemoglobi n A1C, fingersti ck 2024 025 In-Office Order, Internal Use Only DO Not Attach Compendium DO Not Attach Compendium, Do Not Delete/merge, [id number] 09/02/2024 08:55:42 microalbu min/creat inine, mass ratio, urine 2024 025 [facility] (Centralized Electronic Ordering - All Locations), Patient Can Go To The Location Of Their Choice, [id number] 09/03/2024 18:05:27 lipid panel, serum 2023 024 [facility] (Centralized Electronic Ordering - All Locations), Patient Can Go To The Location Of Their Choice, [id number] 08/02/2024 06:07:44 hemoglobi n A1C, fingersti ck 2023 024 In-Office Order, Internal Use Only DO Not Attach Compendium DO Not Attach Compendium, Do Not Delete/merge, [id number] 06/01/2024 11:23:23 BMP, serum or plasma 2023 024 [place] [facility] ([facility]ized Electronic Ordering - All Locations), Patient Can Go To The Location Of Their Choice, [id number] 08/02/2024 06:07:44 TSH + free T4, serum 2023 024 [facility] (Centralized Electronic Ordering - All Locations), Patient Can Go To The Location Of Their Choice, [id number] 08/02/2024 06:07:41 Referral podiatris t referral - Diabetic periphera l neuropath y foot care. 2023 024 [email or web address] Not available 06/01/2024 10:46:14 Procedures None recorded. Surgeries None recorded. Imaging XR, chest, 2 view - Persisten t cough for 3 months. Pt. had pneumonia . 2024 025 [facility] (Imaging), [address], [place], [address], 10/25/2024 11:27:35 XR, chest, 2 view - Cough for weeks. Completed a course of augmentin last week. R/o infiltrat e. 2024 025 [facility] Not available 09/17/2024 14:06:14 XR, chest, 2 view - Productiv e cough, r/o LLL pneumonia . 2024 025 [facility] (Ct Scan), [address] [facility], [place], [address], 09/02/2024 14:32:08 Medication Orders Pulmicort Flexhaler 90 mcg/actua tion breath activated 2024 025 [facility] [address] [place], [address], 10/19/2024 11:22:34 Mounjaro 10 mg/0.5 mL subcutane ous pen injector 2024 025 [facility] [address] [place], [address], 10/19/2024 10:59:45 Toujeo SoloStar U-300 Insulin 300 unit/mL (1.5 mL) subcutane ous pen 2024 025 [facility] [address] [place], [address], 10/19/2024 11:00:24 metformin ER 500 mg tablet,ex tended release 24 hr 2024 025 [facility], [facility], [place] Chiu, [address], 10/19/2024 11:01:13 lisinopri l 10 mg tablet 2024 025 [facility] [place], [address], 10/19/2024 11:14:13 Medrol ([place]) 4 mg tablets in a dose pack 2024 025 [facility] [address] [place], [address], 09/17/2024 10:44:45 codeine 10 mg-guaife nesin 100 mg/5 mL oral liquid 2024 025 [facility] [address] [place], [address], 10/19/2024 10:49:35 albuterol sulfate HFA 90 mcg/actua tion aerosol inhaler 2024 025 [facility] [address] [place], [address], 09/02/2024 09:05:17 Mounjaro 5 mg/0.5 mL subcutane ous pen injector 2024 025 [facility] [address] [place], [address], 10/19/2024 10:58:55 Toujeo SoloStar U-300 Insulin 300 unit/mL (1.5 mL) subcutane ous pen 2024 025 [facility] [address] [place], [address], 09/02/2024 08:56:09 benzonata te 200 mg capsule 2024 025 [facility] [address] [place], [address], 09/17/2024 10:23:08 Paxlovid 300 mg (150 mg x 2)-100 mg tablets in a dose pack 2023 024 [facility] [address] [place], [address], 09/02/2024 08:41:52 Fiasp FlexTouch U-100 Insulin 100 unit/mL (3 mL) subcutane ous pen [email or web address] [place] [address] [facility], [facility] [place], [address], 06/01/2024 10:25:01 Mateus Kc U-300 Insulin 300 unit/mL (1.5 mL) subcutane ous pen 2023 024 [facility] [place], [address], 06/01/2024 10:36:54 Patient TargetsNo targets recorded. Patient Instructions Encounter Date Encounter Id Patient Instructions Last Modified By Organization Details Last Modified Time 06/01/2024 [id number] cervical disc disease: care instructions Not available 06/01/2024 10:30:06 sleep apnea: car e instructions Not available 06/01/2024 11:23:23 hypoglycemia: care instructions Not available 06/01/2024 11:11:27 type 2 diabetes: care instructions Not available 06/01/2024 11:23:23 high blood pressure: care instructions Not available 06/01/2024 11:23:23 learning about high blood pressure Not available 06/01/2024 11:23:23 hypothyroidism: care instructions Not available 06/01/2024 11:23:23 attention defici t hyperactivity disorder (ADHD) in adults: care instructions Not available 06/01/2024 11:23:23 07/18/2024 [id number] coronavirus (covid-19): care instructions Not available 07/18/2024 14:32:13 isolation procedures: care instructions Not available 07/18/2024 14:32:13 cough: care instructions Not available 07/18/2024 14:32:13 09/02/2024 [id number] wheezing or bronchoconstricti on: care instructions Not available 09/02/2024 09:05:15 type 2 diabetes: care instructions Not available 09/02/2024 08:55:42 09/17/2024 [id number] cough: care instructions acennerazzo Not available 09/17/2024 10:44:14 10/19/2024 [id number] chronic cough: care instructions Not available 10/19/2024 11:21:52 type 2 diabetes: care instructions Not available 10/19/2024 10:59:43 high blood pressure: care instructions Not available 10/19/2024 11:14:11 learning about high blood pressure Not available 10/19/2024 11:14:11 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 Referring Physician: Bolivar Salmeron, Internal Medicine, Encounter Date: 06/01/2024 Results Created Date Observation Date Name Description Value Unit Range Abnormal Flag Note LastModifiedBy Organization Detail LastModifiedTime 06/01/20 24 06/01/2024 hemog lobin A1C, finge rstic k A1C 7.9 % 4-6 abnormal Not Available In-Office Order Internal Use Only DO Not Attach Compendium DO Not Attach Compendium, Do Not Delete/merge, [id number] 06/01/2024 10:00:08 08/01/20 24 08/01/2024 TSH+F REE T4 TSH 0.979 uIU/m L 0.450- 4.500 normal Not Available [facility] ([facility]) [address] [place], [address], 08/02/2024 06:07:41 08/01/2008/01/2024 TSH+F REE T4 T4,free(dire ct) 1.33 NG/dL 0.82-1 .77 normal Not Available [facility] ([facility]) [address] [place], [address], 08/02/2024 06:07:41 08/01/2008/01/2024 BASIC METAB OLIC PANEL (8) glucose 151 mg/dL 70-99 above high normal Not Available [facility] ([facility]) [address] [place], [address], 08/02/2024 06:07:43 08/01/2008/01/2024 BASIC METAB OLIC PANEL (8) BUN 48 mg/dL 6-24 above high normal Not Available [facility] ([facility]) [address] [place], [address], 08/02/2024 06:07:43 08/01/20 24 08/01/2024 BASIC METAB OLIC PANEL (8) creatinine 1.37 mg/dL 0.76-1 .27 above high normal Not Available [facility] ([facility]) [address] [place], [address], 08/02/2024 06:07:43 08/01/20 24 08/01/2024 BASIC METAB OLIC PANEL (8) eGFR 60 mL/mi n/1.7 3 >59 normal Not Available [facility] ([facility]) [address] [place], [address], 08/02/2024 06:07:43 08/01/20 24 08/01/2024 BASIC METAB OLIC PANEL (8) BUN/creatini ne ratio 35 9-20 above high normal Not Available [facility] ([facility]) [address] [place], [address], 08/02/2024 06:07:43 08/01/20 24 08/01/2024 BASIC METAB OLIC PANEL (8) sodium 133 mmol/ L 134-14 4 below low normal Not Available [facility] ([facility]) [address] [place], [address], 08/02/2024 06:07:43 08/01/20 24 08/01/2024 BASIC METAB OLIC PANEL (8) potassium 5.2 mmol/ L 3.5-5. 2 normal Not Available [facility] ([facility]) [address] [place], [address], 08/02/2024 06:07:43 08/01/20 24 08/01/2024 BASIC METAB OLIC PANEL (8) chloride 98 mmol/ L 96-106 normal Not Available [facility] ([facility]) [address] [facility] [place], [address], 08/02/2024 06:07:43 08/01/20 24 08/01/2024 BASIC METAB OLIC PANEL (8) carbon dioxide, total 21 mmol/ L 20-29 normal Not Available [facility] ([facility]) [address] [facility] [place], [address], 08/02/2024 06:07:43 08/01/20 24 08/01/2024 BASIC METAB OLIC PANEL (8) calcium 9.8 mg/dL 8.7-10 .2 normal Not Available [facility] ([facility]) [address] [facility] [place], [address], 08/02/2024 06:07:43 08/01/20 24 08/01/2024 LIPID PANEL cholesterol, total 198 mg/dL 100-19 9 normal Not Available [facility] ([facility]) [address] [facility] [place], [address], 08/02/2024 06:07:44 08/01/20 24 08/01/2024 LIPID PANEL triglyceride s 403 mg/dL 0-149 above high normal Not Available [facility] ([facility]) [address] [facility] [place], [address], 08/02/2024 06:07:44 08/01/20 24 08/01/2024 LIPID PANEL HDL cholesterol 29 mg/dL >39 below low normal Not Available [facility] ([facility]) [address] [facility] [place], [address], 08/02/2024 06:07:44 08/01/20 24 08/01/2024 LIPID PANEL VLDL cholesterol stewart 68 mg/dL 5-40 above high normal Not Available [facility] ([facility]) [address] [facility] [place], [address], 08/02/2024 06:07:44 08/01/20 24 08/01/2024 LIPID PANEL LDL chol calc ([facility]) 101 mg/dL 0-99 above high normal Not Available [facility] ([facility]) [address] [facility], [place], [address], 08/02/2024 06:07:44 08/01/20 24 08/01/2024 LIPID PANEL LDL calc comment: ENERGY RATER Not Available [facility] ([facility]) [address] [facility], [place], [address], 08/02/2024 06:07:44 09/02/19 25 09/03/2024 ALBUM IN/CR EAT RATIO , RANDO M UR creatinine, urine 35.9 mg/dL not estab. normal Not Available [facility] ([facility]) [address] [facility], [place], [address], 09/03/2024 18:05:27 09/02/19 25 09/03/2024 ALBUM IN/CR EAT RATIO , RANDO M UR albumin, urine 10.8 ug/mL not estab. Not Available [facility] ([facility]) [address] [facility], [place], [address], 09/03/2024 18:05:27 09/02/19 25 09/03/2024 ALBUM IN/CR EAT RATIO , RANDO M UR alb/creat ratio 30 mg/g_ creat 0-29 above high normal Nicole l: 0 - 29 Moder ately incre ased: 30 - 300 Sever torres incre ased: >300 Not Available [facility] ([facility]) [address] [facility], [place], [address], 09/03/2024 18:05:27 09/02/1909/02/2024 hemog lobin A1C, finge rstic k A1C 8.6 % 4-6 abnormal Not Available In-Office Order Internal Use Only DO Not Attach Compendium DO Not Attach Compendium, Do Not Delete/merge, [id number] 09/02/2024 08:34:54 10/19/19 25 10/19/2024 hemog lobin A1Craheem A1C 7.8 % 4-6 high Not Available In-Office Order Internal Use Only DO Not Attach Compendium DO Not Attach Compendium, Do Not Delete/merge, [id number] 10/19/2024 10:39:40 09/02/19 25 09/02/2024 XR, chest , 2 view No observ ation record ed. [facility] [place] [address], [place], [address], 09/02/2024 14:53:24 09/02/19 25 09/02/2024 XR, chest , 2 view No observ ation record ed. [facility] (Ct Scan) [address], [place], [address], 09/05/2024 08:59:02 09/17/19 25 09/17/2024 XR, chest , 2 view PA and latera l chest dated 2024. Compar zhanna films are from [facility] er 2022. HISTOR Y: Cough. FINDIN GS: The cardia c silhou ette is within normal limits for size. Hilar and medias tinal struct ures are unrema rkable . There is increa sed densit y at the left lung base consis tent with pneumo moncho or atelec tasis and associ ated pleura l effusi on. Some minima l fluid is noted in the minor fissur e on the right. Degene rative change s are seen in the spine. IMPRES STEPHEN: Left lower lobe pneumo moncho and atelec tasis. Minima l right pleura l effusi on. Examin ation [id number]. Thank you for allowi ng me to partic ipate in the care of this patien t. WSN: [id number] Orderi ng Physic yulissa: Christiano Pavon Dictat ed By: Schuyler Reveles MD Dictat ed Date/T red: 2:02 pm Review ed By: Schuyler Reveles MD Signed By: Schuyler Reveles MD Signed Date/T red: 2:02 pm Transc ribed By: CSB Transc ribed Date/T red: 2:01 pm Patien t Class: Outpat ient [email or web address] [facility] (Outpt Imaging) [address] [place], [address], 10/13/2024 14:20:10 09/20/19 25 09/09/2024 XR, chest , 2 view No observ ation record ed. [email or web address] Not Available 09/21 11:19:12 10/25/19 25 10/25/2024 XR, chest , 2 view Examin ation: Chest perfor med on . Histor y: Cough. Findin gs: Fronta l and latera l views of the chest are compar ed to a prior study dated 025. The cardia c and medias tinal silhou ettes are within normal limits . Elevat ion of the left hemidi aphrag m is seen. There is improv ing left basila r opacit y. Linear scar within the left lower lobe is seen. The osseou s and soft tissue struct ures are unrema rkable . Impres stephen: Left lower lobe scar. WSN: [id number] Orderi ng Physic yulissa: Zohaib Salmeron Dictat ed By: Kareen Nam MD Dictat ed Date/T red: 11:24 a Review ed By: Kareen Nam MD Signed By: Kareen Nam MD Signed Date/T red: 11:24 am Transc ribed By: ANNE Transc ribed Date/T red: 11:23 am Patien t Class: Outpat ient ALEXIS [facility] (Outpt Imaging) [address] [place], [address], 10/25/2024 15:06:23 10/25/19 25 10/25/2024 XR, chest , 2 view No observ ation record ed. [email or web address] [facility] (Imaging) [address] [place], [address], 10/26/2024 08:39:09 Result Notes None recorded. Problems Name Problem SNOMED Code Status Onset Date Resolution Date Notes Provider Name and Address Organization Details Recorded Time Hypothyr oidism 53042800 Active John Paul Felix amrit, [facility] 6 10:27:02 Hyperten sive disorder 41914060 Completed 03/01/2018 [employer] PA-C [address], [place], [address], [facility] 8 17:29:59 Mixed hyperlip idemia 549854901 Active Christiano thompson MD [address] [facility] [address], [place], [address], [facility] 6 17:19:44 Depressi ve disorder 28771509 Completed 10/27/2016 Connie marcus, [facility] 7 15:53:51 Psychoge cecilio overeati ng 142240229 Active Bolivar Salmeron PA-C [address], [place], [address], [facility] 6 16:49:20 Obesity 747915687 Active Bolivar Salmeron PA-C [address], [place], [address], [facility] 6 16:49:20 Attentio n deficit hyperact ivity disorder 299936536 Active Bolivar Salmeron PA-C [address], [place], [address], [facility] 6 16:49:20 Benign hyperten stephen 79025098 Completed 03/01/2018 Bolivar Salmeron PA-C [address], [place], [address], [facility] 8 17:33:52 Snoring 14312720 Completed 10/15/2016 [employer] PA-C [address], [place], [address], [facility] 7 13:43:06 Muscle pain 56902030 Completed 10/15/2016 Bolivar Salmeron PA-C [address], [place], [address], [facility] 7 13:43:20 Essentia l hyperten stephen 20294625 Active Bolivar Salmeron PA-C [address], [place], [address], [facility] 6 16:49:20 Recurren t major depressi on 13375505 Completed 03/01/2018 Bolivar Salmeron PA-C [address], [place], [address], [facility] 8 17:29:46 Major depressi ve disorder 694959478 Completed 07/19/2019 Removal Reason: not specific Sue Adamejessica marcus, [facility] 9 16:01:07 Palpitat ions 94996121 Completed 10/15/2016 Bolivar Salmeron PA-C [address], [place], [address], [facility] 7 13:43:10 Fatigue 91110169 Completed 10/15/2016 Bolivar Salmeron PA-C [address], [place], [address], [facility] 7 13:43:15 Cardiac sarcoido sis 13991008 Active 2016 Bolivar Salmeron PA-C [address], [place], [address], [facility] 7 16:45:32 Obstruct larisa sleep apnea syndrome 73406381 Active 2016 Sleep study done 10/08/16. Bolivar Salmeron PA-C [address], [place], [address], [facility] 7 13:42:47 Coronary atherosc lerosis 244617371 Active 2016 cath done in december , 35% RCA lesion Bolivar Salmeron PA-C [address], [place], [address], [facility] 7 21:03:10 Primary erectile dysfunct ion 344845116 Active 2017 Bolivar Salmeron PA-C [address], [place], [address], [facility] 8 17:39:08 Sleep apnea 36981939 Completed 201807/18/2019 Bolivar Salmeron PA-C [address], [place], [address], [facility] 9 14:37:23 Major depressi on single episode, in partial remissio n 69386653 Active 2018 Sue marcus [facility] 9 16:25:49 History of SARS-CoV -2 85794755942 9147011 Active 2021 HANNY Yoon [facility] 2 14:04:42 Long-ter m current use of insulin 687492010 Active 2022 Bolivar Salmeron PA-C [address], [place], [address], [facility] 3 17:11:31 Bilatera l age-rela piyush cataract 67993747979 271246 Active 2022 Sue marcus [facility] 3 16:13:21 Uncontro lled type 2 diabetes mellitus 962795662 Active 2022 Sue marcus [facility] 3 11:36:11 COVID-19 091916509 Active 2023 Bolivar Salmeron PA-C [address], [place], [address], [facility] 14:31:56 Maguei a 283422916 Active 2024 Bolivar Salmeron PA-C [address], [place], [address], [facility] 14:47:49 Problem Notes None recorded. Procedures Surgical History Date Name Laterality Status Provider Name and Address Organization Details Recorded Time 10/19/19 25 Diabetic Foot Exam (Monofilament) completed Bolivar Salmeron PA-C [address] [address], [place], [address], [facility] 10/19/2024 12:51:12 06/01/20 24 Diabetic Foot Exam (Monofilament) completed BolivarAcquisio PA-C [address] [address], [place], [address], [facility] 06/01/2024 11:07:41 12/01/19 24 diabetic retinopathy screening completed Yanique Garcia [facility] 12/21/2023 10:13:58 04/14/20 23 Diabetic Foot Exam (Monofilament) completed Bolivar Salmeron PA-C [address] [address], [place], [address], [facility] 04/14/2023 13:12:09 04/01/20 22 Diabetic Foot Exam (Monofilament) completed [employer] PA-C [address] [address], [place], [address], [facility] 04/01/2022 17:04:34 08/13/20 21 Diabetic Foot Exam (Monofilament) completed Streakden PA-C [address] [address], [place], [address], [facility] 08/13/2021 11:35:48 03/20/20 21 Diabetic Foot Exam (Monofilament) completed Streakden PA-C [address], [address], [facility] 03/20/2021 17:06:48 03/07/20 20 Diabetic Foot Exam (Monofilament) cancelled Juliane Decker [place] [facility] 03/07/2020 09:46:42 02/22/20 20 Diabetic Foot Exam (Monofilament) cancelled Tori Oh [facility] 02/22/2020 08:41:38 01/27/20 20 Diabetic Foot Exam (Monofilament) cancelled Tori Oh [facility] 01/27/2020 08:50:05 07/18/20 19 Diabetic Foot Exam (Monofilament) completed Bolivar Salmeron PA-C [address], [place], [address], [facility] 07/18/2019 14:35:48 04/12/20 19 Diabetic Foot Exam (Monofilament) completed Tori Oh [facility] 04/12/2019 09:35:41 11/23/19 19 Colonoscopy completed Sugey Mcdonald [facility] 01/12/2019 15:26:43 08/31/19 19 partial repair of rotator cuff completed Dk Martines [place] [facility] 04/01/2022 16:10:32 03/01/20 18 Diabetic Foot Exam (Monofilament) completed Hilary davis [place] [facility] 03/01/2018 09:37:13 10/01/18 81 repair of kidney completed Dk Martines [place] [facility] 04/01/2022 16:09:26 dental surgical procedure completed Raina Sanchez LPN [facility] 06/01/2024 09:55:40 Imaging Results Imaging Date Name Status LastModified by Organiz atsandi Details LastModified Time 09/02/2024 XR, chest, 2 view completed [facility] [place] [address], [place], [address], 09/02/2024 14:53:24 09/02/2024 XR, chest, 2 view completed [facility] (Ct Scan) [address] [place], [address], 09/05/2024 08:59:02 09/17/2024 XR, chest, 2 view completed [email or web address] [facility] (Outpt Imaging) [address] [place], [address], 10/13/2024 14:20:10 09/09/2024 XR, chest, 2 view completed [email or web address] Information not available 09/21/2024 11:19:12 10/25/2024 XR, chest, 2 view active [facility] (Outpt Imaging) [address] [place], [address], 10/25/2024 15:06:23 10/25/2024 XR, chest, 2 view completed [facility] (Imaging) [address] [place], [address], 10/26/2024 08:39:09 Procedure Notes None recorded. Medical Equipment None Reported. Allergies Allergen ID Allergen Name Allergen Category Reaction Reaction Severity Criticality Documentation Date Start Date Code Code System Note Provider Name and Address Organization Details Recorded Time 45723 Byetta medicatio n rash Not available Not available 01/01/2018 62320 1 RxNorm Bolivar Salmeron PA-C [address], [place], [address] [facility] 8 13:34:43 76137 Trulicity medicatio n nausea Not available Not available 04/01/2022 26052 96 RxNorm caroline re nause a at the 2nd dose Dk Martines [place] null, [facility] 2 16:01:30 24630 levothyro xine sodium medicatio n abdominal pain Not available low 02/17/2023 53013 RxNorm Raina Sanchez LPN null, [facility] 3 08:44:46 63726 Mounjaro medicatio n diarrhea severe high 07/06/2023 56004 34 RxNorm could not gera ate 10 mg dose Raina Sanchez, [employer] null, [facility] 3 08:44:50 Medications Name Sig Start [...] lotepredn ol etabonate 0.5 % eye drops,[facility] completed Not Available Not Available Not [...] hours by oral route for 7 days. 09/17 completed Not Available Not Available Not [...] Not Available Not Available [employer]Style Joey 2 [place] USE DIRECTED 04/04 completed Not Available Not [...] Updated DateTime 4 182.88 cm 32.3 kg/m2 542359. 08 g 73 /min 95 % 95 % 98.2 [degF] 107 mm[Hg] 63 mm[Hg] Raina Sanchez LPN [facility] 4 09:49:31 Date Recorded Body height Body mass index (BMI) Body weight Heart rate Oxygen saturation Oxygen saturation in Arterial blood by Pulse oximetry Body temperature Systolic blood pressure Diastolic blood pressure Provider Name and Address Organization Details Last Updated DateTime 5 182.88 cm 32.3 kg/m2 900414. 98 g 75 /min 96 % 96 % 97.8 [degF] 121 mm[Hg] 68 mm[Hg] Tara Bass MA [facility] 5 08:39:54 Date Recorded Body height Body mass index (BMI) Body weight Heart rate Oxygen saturation Oxygen saturation in Arterial blood by Pulse oximetry Body temperature Systolic blood pressure Diastolic blood pressure Provider Name and Address Organization Details Last Updated DateTime 5 182.88 cm 31.5 kg/m2 842119. 43 g 74 /min 96 % 96 % 98.2 [degF] 95 mm[Hg] 61 mm[Hg] Fitz duong MA [facility] 5 10:22:01 Date Recorded Body height Body mass index (BMI) Body weight Heart rate Oxygen saturation Oxygen saturation in Arterial blood by Pulse oximetry Body temperature Systolic blood pressure Diastolic blood pressure Provider Name and Address Organization Details Last Updated DateTime 5 182.88 cm 31.2 kg/m2 010314. 25 g 67 /min 96 % 96 % 97.7 [degF] 99 mm[Hg] 62 mm[Hg] Fitz duong MA [facility] 5 10:48:45 Social History Question Answer Notes LastModified by Organizat ion Details LastModified Time Tobacco Smoking Status Former Smoker Tori marcus [facility] 07/18/2019 09:06:36 Do You Have An [...] Have You Had Close Contact With A Laboratory-reneethe dimock centered COVID-19 While That Case Was Ill? No [email or web address] Information not available 03/23/2020 In The 14 [...] 07/27/2017 When Did You Quit Smoking? 16+yearssince lastcigarette Information not available 04/01/2022 Live Alone Or [...] Start Smoking Tobacco? 14 Quit At 27 [email or web address] Information not available 07/18/2019 Are You Passively [...] MDCK, quadrivalent, preservative 019 completed HANNY Vargas [place] - [facility] [place] 08/13/2021 10:18:17 COVID-19, mRNA, LNP-S, PF, 30 mcg/0.3 mL dose 021 completed Elsie Moody, MA null, [facility] 08/13/2021 10:18:17 MMR 008 completed HANNY Vargas, [facility] 08/13/2021 10:18:17 COVID-19, mRNA, LNP-S, PF, 30 mcg/0.3 mL dose 021 completed HANNY Vargas [facility] 08/13/2021 10:18:18 influenza, unspecified formulation 015 completed HANNY Vargas, [facility] 08/13/2021 10:18:18 influenza, unspecified formulation 019 completed HANNY Vargas [facility] 08/13/2021 10:18:18 Influenza, MDCK, quadrivalent, preservative 021 completed HANNY Vargas [facility] 08/13/2021 10:18:18 influenza, unspecified formulation 014 completed HANNY Vargas [facility] 08/13/2021 10:18:18 influenza, unspecified formulation 018 completed HANNY Vargas [facility] 08/13/2021 10:18:18 COVID-19, mRNA, LNP-S, PF, 100 mcg/0.5mL dose or 50 mcg/0.25mL dose 022 completed HANNY Mattson [facility] 01/21/2022 14:53:08 pneumococcal polysaccharide PPV23 018 completed HANNY Yoon [facility] 05/13/2022 14:04:29 Tdap 019 completed HANNY Yoon [facility] 05/13/2022 14:04:29 Influenza, split virus, quadrivalent, PF 016 completed HANNY Yoon [facility] 05/13/2022 14:04:29 Influenza, MDCK, quadrivalent, PF 022 completed HANNY Castañeda, [facility] 04/14/2023 11:05:57 COVID-19, mRNA, LNP-S, bivalent, PF, 30 mcg/0.3 mL dose 022 completed HANNY Castañeda, [facility] 04/14/2023 11:05:57 Influenza, MDCK, quadrivalent, PF 023 completed HANNY Vargas, [facility] 07/06/2023 12:45:24 COVID-19, mRNA, LNP-S, PF, priscila-sucrose, 30 mcg/0.3 mL 023 completed HANNY Castañeda, [facility] 11/18/2023 14:46:19 Influenza, split virus, quadrivalent, PF 017 cancelled patient objection Not Available [facility] 09/17/2019 02:22:08 Influenza, split virus, trivalent, PF 024 completed Bolivar Salmeron PA-C [address], [address], [facility] 06/01/2024 11:06:39 Past Encounters Encounter ID Performer Location Encounter Start Date Encounter Closed Date Diagnosis/Indication Diagnosis SNOMED-CT Code Diagnosis ICD10 Code Diagnosis Note [id number] Dk daniel Main Office [address] [address] 05/25/2015 15:55:34 05/25/2015 16:49:19 Uncontrolled type 2 diabetes mellitus [id number] Uncontroll ed type II DM. Inconsiste nt diet and compliance to meds. Now reportedly improved due to eliminatin g carbs for the past 3 weeks, but no glucose records. I advised pt. to test glucose TID pre meal and return in 2 weeks with log . WE will repeat all labs including A1c and micro albumin profile fasting. Pt. will continue low to no carb diet and I will adjust his meds hopefully down soon. Lower Toujeo to 75 u daily for now. Hypothyroidism 44977711 Stable as per labs in February. Continue current meds. Hypertensive disorder 16141655 Stable HTN on Lisinopril . Repeat micro albumin and CMP. [id number] Madi Teixeira MD Main Office [address] [facility] [address] [facility] [place] [address] 09/12/2015 11:05:48 09/12/2015 11:54:57 Uncontrolled type 2 diabetes mellitus 600264695 E11.65 A1c is improved, but not at goal. Pt. is struggling with consistenc y in diet and exercise. Encouraged to continue recent improvemen ts in diet and add some walking at least 3-4 times weekly. Most recent glucose readings are improved. Continue same medication s. Return in 3 reorder labs. Hypertensive disorder 38 552642 I10 Stable HTN on Lisinopril . Repeat micro albumin and CMP. Psychogeni c overeating 905633956 F50.8 Pt. is inconsiste nt with his counseling . Continue taking Sertraline 50 mg. Mixed hyperlipidemia 267 671386 E78.2 Repeat fasting labs. Continue current meds. Hypothyroidism 24588628 E03.9 Stable as per labs in February. Continue current meds. [id number] Madi Teixeira MD Main Office [address] [facility] 207 [place] [address] 10/24/2015 15:54:58 10/24/2015 16:38:04 Uncontrolled type 2 diabetes mellitus 963806656 E11.65 Improved diabetic control. Goal A1c is under 7%. Pt. is advised to continue current meds and continue trying to stabilize his calorie intake and increase exercise activity. Test glucose 3 times daily is recommende d due to insulin therapy. F/u 3 m. Snoring 56038600 R06.83 Schedule sleep study. Muscle pain 40155321 M79 .1 Mixed hyperlipidemia 267 011433 E78.2 Repeat fasting labs. Continue current meds. Hypothyroidism 66378343 E03.9 Continue current meds. Repeat TSH. [id number] Sue Adame Main Office [address] [facility] 207 [facility] [place] [address] 01/22/2016 15:37:09 01/22/2016 16:39:05 Uncontrolled type 2 diabetes mellitus 130627018 E11.65 Diabetic control was affected by worsened depression , personal stress and inability to use Toujeo. Will try to get approval for Toujeo and continue same doses . Discussed having to be consistent with meds , both insulins and oral antidiabet ics. Pt. will set up alarms for taking meds and other reminders. Reassess in 3 m. or sooner. Noncomplia nce with treatment 4145225 Z91.19 Attention deficit hyperactivity disorder 474441591 F90.9 Pt. is STRONGLY ADVISED TO get back with the specialist and be restarted on ADHD meds. Hypothyroidism 30377768 E03.9 Continue current meds. REview lab test. Essential hypertension 52677802 I10 Stable control. Continue same meds. Recurrent major depression 14158568 F33.9 Connected to uncontroll ed/untreat ed ADHD. Will increase Sertraline to 100 mg daily. F/u 1 month. [id number] Christiano Sequeira MD Main Office [address] [facility] 207 [facility] [place] [address] 02/20/2016 15:59:12 02/20/2016 16:57:40 Uncontrolled type 2 diabetes mellitus 137426178 E11.65 Diabetic control was affected by worsened depression , personal stress and inability to use Toujeo. Will try to get approval for Toujeo and continue same doses . Discussed having to be consistent with meds , both insulins and oral antidiabet ics. Pt. will set up alarms for taking meds and other reminders. Reassess in 3 m. or sooner. Major depr essive disorder 974289363 F32.9 Continue Sertraline 100 mg daily. Counseling is recommende d. Hypothyroidism 45919548 E03.9 Continue current meds. Repeat TSH in February. Muscle pain 36396974 M79 .1 Mixed hyperlipidemia 267 938426 E78.2 CPK to be done. Increase Crestor to 40 mg . Take every other day. [id number] Madi Teixeira MD Main Office [address] [facility] [address] [facility] [place] [address] 04/11/2016 15:12:28 04/11/2016 15:57:50 Hypothyroidism 98835360 E03.9 Recheck TFTs now. Hold thyroid med for today and tomorrow. 24 hr Holter monitor in 2 days due to week end. Palpitations 13937728 R0 0.2 Might be related to thyroid dysfunctio n. EKG is normal. decrease caffeine. Hold Synthroid for 2 days. Decrease exercise activity. NO strenuous activity for now. Labs for TFTs. 24 hr Holter. [id number] Bolivar Salmeron PA-C Main Office [address] [facility] [address] [place] [address] 04/14/2016 09:01:25 04/14/2016 09:59:52 Palpitations 78527610 R00.2 [id number] Bolivar Salmeron PA-C Main Office [address] [place] [address] [place] [address] 04/15/2016 10:05:42 04/15/2016 10:42:12 Hypothyroidism 46192655 E03.9 Fatigue 62116973 R53.83 [id number] Iram arcos Main Office [address] [place] [address] [place] [address] 05/21/2016 15:59:27 05/21/2016 16:42:27 Major depressive disorder 145497776 F32.9 Continue Sertraline 100 mg daily. Counseling is recommende d but pt. is not interested . Influenza vaccine needed 3740766227 106 Z23 Hypothyroidism 29312091 E03.9 Take total of 225 mcg daily. Repeat labs in 6-8 weeks. Uncontroll ed type 2 diabetes mellitus 442314850 E11.65 Diabetic control was affected by worsened depression , personal stress and inability to use Toujeo. Will try to get approval for Toujeo and continue same doses . Discussed having to be consistent with meds , both insulins and oral antidiabet ics. Pt. will set up alarms for taking meds and other reminders. Reassess in 3 m. or sooner. [id number] Dk daniel Main Office [address] [place] [address] [place] [address] 07/22/2016 15:56:35 07/22/2016 16:50:02 Uncontrolled type 2 diabetes mellitus 455828491 E11.65 Noncomplia nt still to monitoring , meds. ADvised to increase Lantus to 90 u daily and premeal insulin to 25 u TID. Start testing TID premeal and return with records in 4-6 weeks. Mixed hyperlipidemia 267 132951 E78.2 Continue Crestor at 40 mg . Take every other day. Repeat lipids and LFTs prior to next visit. Noncomplia nce with treatment 8543273 Z91.19 MOre than 30 minutes spent in counseling about risks of noncomplia nce to treatment and risks of uncontroll ed sugars. Hypothyroidism 14881641 E03.9 Take total of 225 mcg daily. Repeat TFTs Essential hypertension 96137281 I10 stable control on meds. [id number] Christiano Sequeira MD Main Office [address] [facility] [address] [place] [address] 08/19/2016 08:47:25 08/19/2016 09:38:39 Uncontrolled type 2 diabetes mellitus 192127023 E11.65 Overall better glucose readings due to following diet better. Pt. had one predinner hypoglycem ic episode. Will advise to lower Glipizide to 5 mg BID to avoid random hypoglycem ia. HUmalog 25 u in the am and at supper, lower to 20 u at lunch. Lantus down to 85 u daily. F/u and repeat A1c in 6 weeks. Impotence 618059789 N52. 9 Hypothyroidism 42874128 E03.9 Take total of 225 mcg daily. Repeat TFTs Snoring symptoms 0535656 00 R06.83 [id number] Iram arcos Main Office [address] [facility] [address] [place] [address] 10/27/2016 15:33:15 10/27/2016 16:40:49 Uncontrolled type 2 diabetes mellitus 751976082 E11.65 Overall better glucose readings due to following diet better. Continue Glipizide 5 mg qd. Humalog 28 u in the am , 25 at lunch and 28 at supper, Lantus continue at 90 u daily. If Toujeo or Tresiba covered under the plan, that would be preferred way to go . PT,. will look into that. F/u 3 m. Hypothyroidism 59347318 E03.9 Take total of 225 mcg daily. Repeat TFTs Mixed hyperlipidemia 267 255676 E78.2 Continue Crestor at 40 mg . Take every other day. Repeat lipids and LFTs prior to next visit. Body mass index 30+ - obesity 929595521 Z68.36 Cardiac sarcoidosis 7540 3004 D86.85 F/u with cardiologi st as scheduled. [id number] Madi Teixeira MD Main Office [address] [place] [address] 01/23/2017 09:03:03 01/23/2017 10:32:13 Uncontrolled type 2 diabetes mellitus 297258637 E11.65 Overall worse diabetes chen. Pt. struggles with diet consistenc y. Seem to be more level for the past 3 weeks, but has ADHD and is not seeking treatment despite the advise. I asked him to test his glucose more consistent ly too as it is affected by inconsiste ncy as well. I am looking for 2 hrpc readings to adjust his insulin. He does not need increase in basal insulin or change in his oral antidiabet ics. He will return with log in 4 weeks. Mixed hyperlipidemia 267 343775 E78.2 Continue Crestor at 40 mg . See lipidologi st Dr. Preciado as scheduled in February. Paxton looking for his input here due to complexity of the case. Again, inconsiste nt diet is getting in a way. I ask pt. today to discontinu e eating eggs daily and have only 2 whole eggs per week and not eat mayonese. [id number] Behzad Gabriel MD Main Office [address] [place] [address] 06/16/2017 10:01:40 06/16/2017 10:59:21 Uncontrolled type 2 diabetes mellitus 611525189 E11.65 Uncontroll ed type II DM. Inconsiste nt diet and compliance to meds. Inconsiste nt testing. Never brings glucose log. AM fasting is high. Will advise to increase Toujeo to 100 u and self titrate up by 2 u александр 3 days until am fasting glucose is under 130. HUmalog 30 u TID and continue Metformin and INvokana. Repeat labs . PT. requested endo consult which we will arrange with Dr. Juan Carlos Ashford. F/u 2 m. Hypothyroidism 55475499 E03.9 Take total of 225 mcg daily. Repeat TFTs Inflammati on of rotator cuff tendon 954269944 M65.811 consider ortho referral. Exposure t o Hepatitis C virus 825342228 Z20.5 Body mass index 30+ - obesity 095509321 E66.9 Z68.35 Screening for malignant neoplasm of colon 071373842 Z12.11 [id number] Main Office [address] [place] [address] 06/29/2017 09:33:57 06/29/2017 10:38:36 Shoulder tendinitis 266134294 M75.81 Refer to an orthopedis t for cortisone shots. Uncontroll ed type 2 diabetes mellitus 224115623 E11.65 Uncontroll ed type II DM. Inconsiste nt diet and compliance to meds. Inconsiste nt testing. Never brings glucose log. AM fasting is high. Will advise to increase Toujeo to 110 u and self titrate up by 2 u александр 3 days until am fasting glucose is under 130. HUmalog 35 u TID and continue Metformin and INvokana. Repeat A1c at next visit . Pt. requested endo consult which we will arrange with Dr. Juan Carlos Ashford. Hypertensive disorder 38 517660 I10 stable renal tests and no microalbum inuria. pt. is on ACEI. Body mass index 30+ - obesity 973908773 E66.9 Z68.36 Attention deficit hyperactivity disorder 900353992 F90.9 Estella. will,be made for him for counseling here in the office and also for [facility] to address ADHD and get back on meds. [id number] Dk daniel Main Office [address] [facility] [address] [place] [address] 07/27/2017 10:28:28 07/27/2017 11:35:18 Immunization refused 866119527 Z28.21 Uncontroll ed type 2 diabetes mellitus 421479434 E11.65 Diabetes improved due to changes as of past 2 weeks in calorie /carb intake. ? is if he will be able to stick with this plan due to his untreated ADHD. I asked pt. to be seen at [facility] to discuss therapy. He elio continue monitoring glucose 3-5 times daily and lowering insulin as discussed , especially prebreak. if gets low 60 after break. F/u 6 weeks with repeat A1c. See nutritioni st as per referral and counselor. Essential hypertension 25369925 I10 stable control on meds. Recurrent major depression 39139935 F33.9 Continue counseling with Colette weekly and meds. Attention deficit hyperactivity disorder 108723066 F90.9 [facility] for eval. and treatment. Body mass index 30+ - obesity 407803690 E66.9 Z68.36 [id number] Iram arcos Main Office [address] [facility] [address] [place] [address] 08/18/2017 09:50:29 08/18/2017 10:46:39 Uncontrolled type 2 diabetes mellitus 262219445 E11.65 IMporved diabetic control . LOwer HUmalog to 25 u TID and test 2 hrpc. If still drops below 100 postmeal, keep decreasing by 2 u every 3 days. Toujeo 80 u daily. Pt. is seeing Dr. Faith batres today and will discuss lowering Glyburide as well. F/u 3 m. Attention deficit hyperactivity disorder, predominantly inattentive type 68104754 F90.0 Continue under care of [facility]. Pt. is also beeing referred to see psychiatri for SSRI med adjustment s. Will continue counseling . Abnormal foot pulse 6943 7003 R09.89 [id number] Madi Teixeira MD Main Office [address] [facility] [address] [place] [address] 01/01/2018 12:57:38 01/01/2018 14:16:45 Uncontrolled type 2 diabetes mellitus 366021534 E11.65 Increase Toujeo to 110 u daily. Continue HUmalog 20 u TID . INvokana and Metfromin will be combined into INvokamet to decrease pill burden. Continue Glyburide 5 mg BID. PT. will let me know if he agrees to try Trulicity. I discussed pros and cons of taking this med with black box warning. It would be better if pt. could be off Glyburide due to high risk of hypoglycem ia. F/u as scheduled for PE. Mixed hyperlipidemia 267 376341 E78.2 Continue Crestor at 40 mg . See lipidologi st Dr. Preciado as scheduled in February. Paxton looking for his input here due to complexity of the case. Again, inconsiste nt diet is getting in a way. I ask pt. today to discontinu e eating eggs daily and have only 2 whole eggs per week and not eat mayonese. Hypothyroidism 23980303 E03.9 Take total of 225 mcg daily. Repeat TFTs Candidiasis of skin 4988 3006 B37.2 Hypertensive disorder 38 181979 I10 stable renal tests and no microalbum inuria. pt. is on ACEI. [id number] Madi Teixeira MD Main Office [address] [place] [address] 03/01/2018 09:00:07 03/01/2018 10:24:00 Adult health examination 371274939 Z00.00 Mixed hyperlipidemia 267 645768 E78.2 Continue Crestor at [address] Preciado as scheduled in February. Paxton looking for his input here due to complexity of the case. Again, inconsiste nt diet is getting in a way. I ask pt. today to discontinu e eating eggs daily and have only 2 whole eggs per week and not eat mayonese. Hypothyroidism 31583940 E03.9 Take total of 225 mcg daily. TFTs were normal. Uncontroll ed type 2 diabetes mellitus 262489755 E11.65 Increase Toujeo to 110 u daily. Continue HUmalog 20 u TID . INvokana and Metfromin will be combined into INvokamet to decrease pill burden. Continue Glyburide 5 mg BID. PT. will let me know if he agrees to try Trulicity. I discussed pros and cons of taking this med with black box warning. It would be better if pt. could be off Glyburide due to high risk of hypoglycem ia. F/u as scheduled for PE. Essential hypertension 56617538 I10 stable control on meds. Administra tion of viral vaccine 43942846 Z23 Screening for malignant neoplasm of colon 743375051 Z12.11 Administra tion of pneumococcal vaccine 64124293 Z23 Screening for malignant neoplasm of prostate 938797776 Z12.5 Attention deficit hyperactivity disorder 538944675 F90.9 f/u psych. Obstructiv e sleep apnea syndrome 67725028 G47.33 Continue using CPAP. Pt. was encouraged to use it more than 4 hrs per night. Coronary atherosclerosis 704049944 I25.10 f/u cardiology . Cardiac sarcoidosis 7540 3004 D86.85 F/u with cardiology . Major depr essive disorder 847798602 F32.9 F/u psych and counseling . Body mass index 30+ - obesity 547778014 E66.9 Z68.36 Primary er ectile dysfunction 626677445 N52.9 [id number] Bolivar Salmeron PA-C Main Office [address] [facility] [address] [place] [address] 09/13/2018 14:29:34 09/13/2018 15:57:50 Uncontrolled type 2 diabetes mellitus 724845995 E11.65 Increase Toujeo to 110 u daily. Continue HUmalog 20 u TID . INvokana and Metfromin will be combined into INvokamet to decrease pill burden. Continue Glyburide 5 mg BID. PT. will let me know if he agrees to try Trulicity. I discussed pros and cons of taking this med with black box warning. It would be better if pt. could be off Glyburide due to high risk of hypoglycem ia. F/u as scheduled for PE. Essential hypertension 12794756 I10 stable control on meds. Hypothyroidism 60741480 E03.9 Take total of 225 mcg daily. Repeat TFTs. Screening for malignant neoplasm of colon 951601316 Z12.11 Pt. is overdue. Attention deficit hyperactivity disorder 208094769 F90.9 f/u psych. Major depr essive disorder 544977864 F32.9 F/u psych and counseling . Mixed hyperlipidemia 267 190184 E78.2 f/u with Dr. Preciado. Body mass index 30+ - obesity 314379560 E66.9 Z68.35 [id number] Bolivar Salmeron PA-C Main Office [address] [address] 01/11/2019 09:43:04 01/11/2019 11:03:56 Attention deficit hyperactivity disorder 043392895 F90.9 f/u psych. Hypothyroidism 45883004 E03.9 Take total of 225 mcg daily. Repeat TFTs. Essential hypertension 76705525 I10 stable control on meds. Uncontroll ed type 2 diabetes mellitus 637586405 E11.65 Pt. is advised to start using CGM for testing , as he does not have time for fingerstic ks at work. Rx sent in for 14 day Joey. Continue same meds. F/u 3 m or sooner. Administra tion of viral vaccine 48339163 Z23 Mixed hyperlipidemia 267 860265 E78.2 f/u with Dr. Preciado. Hernia of anterior abdominal wall 823372187 K43.9 PT. has large ventral and ? umbilical hernia. Will schedule CT. Body mass index 30+ - obesity 168955183 E66.9 Z68.35 [id number] Bolivar Salmeron PA-C Main Office [address] [facility] [address] [place] [address] 04/12/2019 09:17:50 04/12/2019 10:23:21 Essential hypertension 11524327 I10 stable control on meds. Uncontroll ed type 2 diabetes mellitus 911792327 E11.65 Glycemic control improved . Pt. is following vegetarian diet and tries to stay active. Increase Humalog to 33 u at lunch adn 35 at supper. Continue Toujeo 110 u daily. Add small snack prelunch to avoid hypoglycem ia , lower calories at lunch and dinner. F/u 3 m. 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 Hypothyroidism 34774253 E03.9 repeat labs prior to next visit. Body mass index 30+ - obesity 287720182 E66.9 Z68.35 [id number] Sue Adame Main Office [address] [address] 07/18/2019 08:44:41 07/18/2019 10:11:05 Adult health examination 519856076 Z00.00 Uncontroll ed type 2 diabetes mellitus 302335422 E11.65 Glycemic control is stable, although not at goal by A1c yet. A lot of postprandi al hyperglyce phyllis. Pt. is following vegetarian diet and tries to stay active. Increase Humalog to 35 u at lunch and 35 at supper. Continue Toujeo 115 u daily. Add small snack prelunch to avoid hypoglycem ia , lower calories at lunch and dinner. F/u 3 m. Repeat labs prior to next visit. Essential hypertension 16040730 I10 stable control on meds. Hypothyroidism 11506974 E03.9 repeat labs prior to next visit. Obstructiv e sleep apnea syndrome 56051046 G47.33 Continue using CPAP. Primary er ectile dysfunction 127127530 N52.9 Mixed hyperlipidemia 267 590312 E78.2 f/u with Dr. Preciado. 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 589573725 E11.3299 F/u with ophthalmol ogist as scheduled. Coronary atherosclerosis 740956259 I25.10 f/u cardiology . Cardiac sarcoidosis 7540 3004 D86.85 F/u with cardiology . Attention deficit hyperactivity disorder 020409074 F90.0 f/u psych. Major depr ession single episode, in partial remission 51967003 F32.4 F/u psych and counseling . [id number] Bolivar Salmeron PA-C Main Office [address] [facility] [address] [facility] [place] [address] 03/23/2020 11:04:57 03/23/2020 12:22:49 Uncontrolled type 2 diabetes mellitus [id number] E11.65 Glycemic control is not ideal. Pt. has high cardiovasc ular risks , but has h/o binge eating, ADD , depression and anxiety. Struggles with consistenc y in diet. Unfortunat torres can not tolerate ADD meds. Sees psych and therapist. Continue current meds/insul ins. F/u 3 m. GOal A1c is under 7%. Pt. is planning on shoulder surgery in fall. Encouraged to improve glycemic control before the surgery. 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 760616357 E11.3299 F/u with ophthalmol ogist as scheduled. Major depr ession single episode, in partial remission 66303573 F32.4 F/u psych and counseling . Hypothyroidism 96286550 E03.9 continue current meds. Essential hypertension 15230520 I10 stable control on meds. Coronary atherosclerosis 442139510 I25.10 f/u cardiology . [id number] Bolivar Salmeron PA-C Main Office [address] [facility] [address] [place] [address] 06/22/2020 14:29:22 06/22/2020 15:14:45 Uncontrolled type 2 diabetes mellitus 637153752 E11.65 Glycemic control is not ideal. Pt. has high cardiovasc ular risks , has h/o binge eating, ADD , depression and anxiety. Struggles with consistenc y in diet. Unfortunat torres can not tolerate ADD meds. At this point we will retry GLP-1 but in oral form . Start Rybelsus 3 mg daily for 4 weeks. If tolerated , we will increase in 4 weeks to 7 mg and drop glyburide to 5 mg BID. Continue other meds the same. F/u 6 weeks. [id number] Bolivar Salmeron PA-C Telehealt h 3640 [facility] [address] [place] [address] 07/02/2020 08:43:13 07/02/2020 14:37:14 Generalized anxiety disorder 24602109 F41.1 Continue current meds. F/u with psych as scheduled for f/u on med changes. If episodes of breathing problem reoccur, pt. will call me. Obstructiv e sleep apnea syndrome 59349529 G47.33 recommend to contact sleep medicine office and see if full mask can be replaced with partial coverage mask due to anxiety and difficulty sleeping. [id number] Bolivar Salmeron PA-C Main Office [address] [facility] [address] [place] [address] 11/27/2020 15:32:42 11/27/2020 16:24:57 Uncontrolled type 2 diabetes mellitus 152780525 E11.65 Glycemic control is improved due to vegan diet and yoga exercise. Pt. is advised to try Rybelsus 3 mg daily for 4 weeks. If tolerated, go to 7 mg thereafter and maybe we can lower Glyburide to 10 mg and /or eliminate humalog. Pt. currently takes about 10 u premeal. F/u 2 m. Pt. is using CGM. We will do upload prior to visit. Essential hypertension 69238322 I10 stable control on meds. [id number] Bolivar Salmeron PA-C Main Office [address] [facility] [address] [place] [address] 03/20/2021 15:35:45 03/20/2021 17:00:54 Adult health examination 560750064 Z00.00 Vaccines: UTD, COVID vaccinatio n in October1Colono scopy: UTD Cardiac sarcoidosis 7540 3004 D86.85 Follow up with cardiology . Last visit December 2019 and indicated 6 month follow up at that time- overdue. Coronary atherosclerosis 389611673 I25.10 Follow up with cardiology . Essential hypertension 37251088 I10 Stable. Continue current medication . 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 665289327 E11.3299 Follow up with ophthalmol ogist as scheduled in March. Hypothyroidism 89980389 E03.9 Will recheck labs. Continue current medication s. Major depr ession single episode, in partial remission 83603655 F32.4 Follow up psych and counseling . Mixed hyperlipidemia 267 260281 E78.2 Elevated triglyceri do on 03/13/21. Follow up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
--- OUTSIDE RECORDS SUMMARY | 2024-10-31 18:51 | XMS_ITS | Continuity of Care Document ---
Author Organization [facility] Address [address] [place] [address]- Care Team Providers Care Agricultural Extension Specialist Name Role Phone Carole Keating Primary Care Physician Encounter [facility] Date(s): 09/06/24 - 10/06/24 [facility] [address] [place] [id number] Encounter Type: Triage Allergies, Adverse Reactions, Alerts Substance Criticality Severity Reaction Reaction Severity Status Byetta Prefilled Pen Active Medications BD PEN NEEDL [id number] MIS BD PEN NEEDL [id number] MIS, 0 Refills, Maintenance, 06/07/24 9:50:00 AM EDT Start Date: 06/07/24 Status: Ordered Repeat number: 1 BusPIRone By Mouth, 0 Refills, Maintenance, 05/10/20 3:42:00 PM EDT Start Date: 05/10/20 Status: Ordered Repeat number: 1 Cialis 20 mg oral tablet 1 tablet = 20 mg, By Mouth, Daily, # 30 tablet, 0 Refills, Maintenance, 04/23/20 1:23:00 PM EDT, Tablet, [facility] #[id number], 182.88, cm, 04/20/20 13:47:00 EDT, Height Start [...] Refills, Maintenance, 06/07/24 10:24:00 AM EDT, Tablet, [facility], Partial fill upon patient request if [...] Refills, Maintenance, 01/26/20 11:01:00 AM EDT, Tablet, [facility] #[id number], 182.88, cm, 06/15/18 9:09:00 EDT, Height Start [...] Refills, Maintenance, 08/26/24 2:15:00 PM EST, Capsule, [facility], 2 capsule By Mouth 2 times a [...] 8:29:31 AM EDT, Route to Pharmacy Electronically, [address] Start Date: 02/09/18 Stop Date: 08/08/18 [...] Refills, Maintenance, 08/26/24 2:15:00 PM EST, Tablet, [facility], 182, cm, 06/07/24 14:10:00 EDT, Height, [...] Position: Reference Physician Member Role: PCP Address: [address] [place] [address] Telecom: Care Team Related Persons Name: ATILIO BLANDON Insurance Providers Guarantor name: [facility] Plan Information #: 1 Payer: [employer] Member Number: NA Policy Number: NA Group Number: NA
--- OUTSIDE RECORDS SUMMARY | 2024-10-31 18:52 | XMS_ITS | Continuity of Care Document ---
Author Organization [facility] Address [address] [place] [address] Name Relationship Address Phone ATILIO BLANDON spouse Unknown Unavailable ADELAIDA BLANDON Personal Relationship Unknown Lexi vailable ADELAIDA BLANDON Personal Relationship Unknown Lexi vailable Care Team Providers Care Digital Program Manager Name Role Phone Carole Keating Primary Care Physician Encounter [facility] [place] Date(s): 09/09/24 - 10/09/24 [facility] [address] [place] [id number] Attending Physician: Admtr, Ar8 Admitting Physician: Admtr, Ar8 Referring Physician: Admtr, Ar8 Encounter Type: Triage Allergies, Adverse Reactions, Alerts Substance Criticality Severity Reaction Reaction Severity Status Byetta Prefilled Pen Active Medications BD PEN NEEDL [id number] MIS BD PEN NEEDL [id number] MIS, 0 Refills, Maintenance, 06/07/24 9:50:00 AM EDT Start Date: 06/07/24 Status: Ordered Repeat number: 1 BusPIRone By Mouth, 0 Refills, Maintenance, 05/10/20 3:42:00 PM EDT Start Date: 05/10/20 Status: Ordered Repeat number: 1 Cialis 20 mg oral tablet 1 tablet = 20 mg, By Mouth, Daily, # 30 tablet, 0 Refills, Maintenance, 04/23/20 1:23:00 PM EDT, Tablet, [facility] #[id number], 182.88, cm, 04/20/20 13:47:00 EDT, Height Start [...] Refills, Maintenance, 06/07/24 10:24:00 AM EDT, Tablet, [facility], Partial fill upon patient [...] Refills, Maintenance, 01/26/20 11:01:00 AM EDT, Tablet, [facility] #[id number], 182.88, cm, 06/15/18 9:09:00 EDT, Height Start [...] Refills, Maintenance, 08/26/24 2:15:00 PM EST, Capsule, [facility], 2 capsule By Mouth 2 times a [...] 8:29:31 AM EDT, Route to Pharmacy Electronically, [address] Start Date: 02/09/18 Stop Date: 08/08/18 [...] Refills, Maintenance, 08/26/24 2:15:00 PM EST, Tablet, [facility], 182, cm, 06/07/24 14:10:00 [...] Quantity: 30.0 Unit: tablet Repeat number: 1 Toudelphineo SoloStar Subcutaneous Infusion, Daily, 0 Refills, Maintenance, [...] on: 04/24/16 Sex Sex Representation Male (finding) Cardiology * Event Display: Non [facility] Cardiovascular Results Authored Date: * Event Display: Non [facility] Cardiovascular Results Authored Date: * Event Display: Non [facility] Cardiovascular Results Authored Date: * Event Display: Non [facility] Cardiovascular Results Authored Date: Patient Care team information Care Team Personnel Name: Carole Keating Position: Reference Physician Member Role: PCP Address: [address] [place] [address] Telecom: Care Team Related Persons Name: ATILIO BLANDON Insurance Providers Guarantor name: ADELAIDA [facility] Information #: 1 Payer: [facility] HMO Member Number: NA Policy Number: NA Group Number: NA
--- OUTSIDE RECORDS SUMMARY | 2024-10-31 18:52 | XMS_ITS | Continuity of Care Document ---
Author Organization [facility] Address [address] [place] [address] [facility] Name Relationship Address Phone ATILIO BLANDON spouse Unknown Unavailable ADELAIDA BLANDON Personal Relationship Unknown Lexi vailable ADELAIDA BLANDON Personal Relationship Unknown Lexi vailable Care Team Providers Care Router Tender Name Role Phone Carole Keating Primary Care Physician Encounter [facility] [id number] Date(s): 06/11/24 - 10/09/24 [facility] [address] [place] [id number] Attending Physician: Sailaja Carrera NP Admitting Physician: Sailaja Carrera NP Referring Physician: Carole Keating Encounter Type: Pre-OutPatient One Time Allergies, Adverse Reactions, Alerts Substance Criticality Severity Reaction Reaction Severity Status Byetta Prefilled Pen Active Medications BD PEN NEEDL [id number] MIS BD PEN NEEDL [id number] MIS, 0 Refills, Maintenance, 06/07/24 9:50:00 AM EDT Start Date: 06/07/24 Status: Ordered Repeat number: 1 BusPIRone By Mouth, 0 Refills, Maintenance, 05/10/20 3:42:00 PM EDT Start Date: 05/10/20 Status: Ordered Repeat number: 1 Cialis 20 mg oral tablet 1 tablet = 20 mg, By Mouth, Daily, # 30 tablet, 0 Refills, Maintenance, 04/23/20 1:23:00 PM EDT, Tablet, [facility] #[id number], 182.88, cm, 04/20/20 13:47:00 EDT, Height Start [...] Refills, Maintenance, 06/07/24 10:24:00 AM EDT, Tablet, [facility], Partial fill upon patient request [...] Refills, Maintenance, 01/26/20 11:01:00 AM EDT, Tablet, [facility] #[id number], 182.88, cm, 06/15/18 9:09:00 EDT, Height Start [...] Refills, Maintenance, 08/26/24 2:15:00 PM EST, Capsule, [facility], 2 capsule By Mouth 2 [...] 8:29:31 AM EDT, Route to Pharmacy Electronically, [address] Start Date: 02/09/18 Stop Date: 08/08/18 [...] Refills, Maintenance, 08/26/24 2:15:00 PM EST, Tablet, [facility], 182, cm, 06/07/24 14:10:00 EDT, [...] Position: Reference Physician Member Role: PCP Address: [address] [place] [address] Telecom: Care Team Related Persons Name: ATILIO BLANDON Insurance Providers Guarantor name: ADELAIDA [facility] Information #: 1 Payer: [facility] Member Number: [id number] Policy Number: NA Group Number: [id number] Health Plan Information #: 2 Payer: [facility] [employer] [facility] Member Number: [id number] Policy Number: NA Group Number: NA
== END 2024-10-31 16:46 | disposition home or self-care (01) ==
LOC: HO.HOP 16:15
PROVIDERS: PCP Physician Assistant Medical; Visit Provider Clinical Nurse Specialist Psychiatric/Mental Health
DX: F33.41 Major depressive disorder, recurrent, in partial remission (principal); F41.1 Generalized anxiety disorder; F90.2 Attention-deficit hyperactivity disorder, combined type
CPT/HCPCS: 99214

== ENCOUNTER → 2024-10-31 16:15 | Outpatient (BNVA) | payer OTHER, SELFPAY | PROVIDERS: PCP Physician Assistant Medical; Visit Provider Clinical Nurse Specialist Psychiatric/Mental Health ==

== ENCOUNTER 2025-01-02 16:07 | Outpatient (AMB) | payer OTHER, SELFPAY ==
--- NOTE | 2025-01-02 16:22 | A.OFFPSYCH_ITS ---
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: depression Telephone Directory Distributor Driver Required: No Medication List - Last Reconciled 01/02/25 by Jessica Li APRN blood-glucose sensor (FreeStyle Joey 3 Sensor device) As directed bupropion HCl XL (Wellbutrin XL) 150 mg PO QAM buspirone 10 mg PO BID empagliflozin (Jardiance) 25 mg PO DAILY fenofibrate 160 mg PO DAILY glyburide 2.5 mg PO DAILY insulin aspart (niacinamide) 100 unit/mL (3 mL) (Fiasp FlexTouch U-100 Insulin) subcut insulin glargine U-300 conc (Toujeo SoloStar U-300 Insulin) units subcut lamotrigine 200 mg PO BID levothyroxine (Synthroid) 200 mcg PO DAILY levothyroxine (Synthroid) 50 mcg PO DAILY lisinopril 40 mg PO DAILY lorazepam 1 mg PO DAILY PRN metformin ER 500 mg PO TID metoprolol succinate ER 25 mg PO DAILY niacin ER 1,000 mg PO DAILY omega-3 acid ethyl esters 2 caps PO BID pregabalin 75 mg PO BID rosuvastatin 40 mg PO DAILY sertraline 100 mg PO DAILY tadalafil mg PO tirzepatide (Mounjaro) mg subcut HPI- Psychiatric Chief Complaint: depression HPI Narrative: pt reports a two week period of problems with memory, comprehension and brain fog. Pt reports having trouble with complex tasks at work and intermittent trouble with familiar tasks that he ususally did not have to think about for example turning on the [employer] wipers in his car. Pt completed a MOCA. He scored 26/30. He recently had pneumonia that lasted 3 months. He is struggling with depression and anxiety. demands at work have increased. 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 He worries about finances and half-way. His father has recently decided to move out of state which is worriesome to pt and he will miss him as he is in frequent contact. Pt denies SI or Hi PHQ9=13 and GAD7=17. Past Psychiatric History: HCC: He is dx with MDD, JAMISON and ADHD; dx with ADHD age 42; He and previous provider have been considering Bipolar II disorder. He has never been hospitalized; Medication Trials: Ritalin-ineffective Amphetamine salt- ? worse symptoms Subjective Subjective Subjective Medication Compliance: Yes Side effects from medications: No Mental Status Exam Mental Status Exam Patient Appearance: Well Grooomed and Appropriate Patient Orientation: Person, Place, Time and Situation Level of Consciousness: Awake Patient Behavior: Appropriate Mood Description: Anxious Affect Description: Flat Patient Cognition Impaired: Yes Ability to Follow Directions: Good Speech Pattern: Clear Memory Description: Episodic Impaired and Working Impaired Hallucinations: None Delusions: Not Present Thought Process: Distracted and Rumination Thought Content: positive for Preoccupation Judgement: Fair Assessment and Plan Assessment & Plan (1) Memory changes: Status: Acute Code(s): R41.3 - Other amnesia (2) Cognitive attention deficit: Status: Acute Code(s): R41.840 - Attention and concentration deficit (3) ADHD (attention deficit hyperactivity disorder), combined type: Status: Acute Code(s): F90.2 - Attention-deficit hyperactivity disorder, combined type (4) JAMISON (generalized anxiety disorder): Status: Acute Code(s): F41.1 - Generalized anxiety disorder (5) Major depressive disorder, recurrent, in partial remission: Status: Acute Code(s): F33.41 - Major depressive disorder, recurrent, in partial remission Plan Labs ordered CT of head ordered Pt will see PCP this week Orders: Orders Comprehensive Met. Panel 01/02/25 R41.840 - Attention and concentration deficit IRON PROFILE 01/02/25 F33.41 - Major depressive disorder, recurrent, in partial remission, R41.840 - Attention and concentration deficit Transferrin 01/02/25 F33.41 - Major depressive disorder, recurrent, in partial remission, R41.840 - Attention and concentration deficit CT head/brain wo IV con 01/02/25 R41.840 - Attention and concentration deficit Complete Blood Count Auto Diff 01/02/25 R41.840 - Attention and concentration deficit TSH reflex Free T4 01/02/25 R41.840 - Attention and concentration deficit Hemoglobin A1c 01/02/25 E11.9 - Type 2 diabetes mellitus without complications, R41.840 - Attention and concentration deficit Vitamin B12 and Folate 01/02/25 R41.840 - Attention and concentration deficit Vitamin B1 01/02/25 R41.840 - Attention and concentration deficit Magnesium 01/02/25 F33.41 - Major depressive disorder, recurrent, in partial remission, R41.840 - Attention and concentration deficit Ferritin 01/02/25 F33.41 - Major depressive disorder, recurrent, in partial remission, F90.2 - Attention-deficit hyperactivity disorder, combined type, R41.840 - Attention and concentration deficit JOHN Reflex Titer and Pattern 01/02/25 F33.41 - Major depressive disorder, recurrent, in partial remission, R41.840 - Attention and concentration deficit CRP High Sensitivity 01/02/25 R41.840 - Attention and concentration deficit Erythrocyte Sedimentation Rate 01/02/25 R41.840 - Attention and concentration deficit Lyme IgG/IgM w/reflex to WB 01/02/25 R41.840 - Attention and concentration deficit Counseling and coordination of Care Pt. Self Management counseling: Med illness tx adherence, Mod caffeine/ETOH intake, Nutrition education and improvement, General coping skills and Problem solving Medication management counseling: Effectiveness, Side effects, Dosing range, Duration, Drug interaction and Adherence Diagnosis and Prognosis Counseling: Accuracy of diagnosis, Prognosis over time, Impact of diagnosis on life functions, Problematic behaviors secondary to diagnosis and Adequacy of current interventions Details: I spent 60 minutes reviewing the record, seeing the patient and documenting in the medical record. Counseling provided to the patient/caregiver as outlined below. Addressed patient/caregiver concerns regarding current medication regime including effective adherence. Addressed patient/caregiver concerns regarding diagnosis and prognosis including accuracy of diagnosis, prognosis over time, impact of diagnosis. Addressed patient/caregiver concerns regarding impact of recent stressors. [facility] Medical History (Updated 01/05/25 @ 15:06 by Jessica Li APRN) HTN (hypertension) Retinopathy Hypothyroidism Hypercholesteremia Social History: Family/Social History: grew up in [place] with parents both parents professional artisits only child went to college age 30 in 2001 14 year old son works as RN in hospital Family History of Mental illness mother and father both severe ADHD son is ADHD Substance History: Substance use: Tobacco none ETOH none marijuana none opiates none rx pills none street drugs none Trauma History: none Coding Level of Care Code Est Pt Level 5 (36935) Diagnoses Memory changes R41.3 Cognitive attention deficit R41.840 ADHD (attention deficit hyperactivity disorder), combined type F90.2 JAMISON (generalized anxiety disorder) F41.1 Major depressive disorder, recurrent, in partial remission F33.41
--- OUTSIDE RECORDS SUMMARY | 2025-01-02 17:30 | XMS_ITS | Data Portability ---
Author Organization [facility] [id number] Address [address] [place] [id number] Assessment No assessment recorded. Plan of Treatment Reminders Order Date Submit Date Provider Last Modified By Organization Details Last Modified Time Details Appointments None recorded. Lab None recorded. Referral None recorded. Procedures None recorded. Surgeries None recorded. Imaging None recorded. Medication Orders Augmentin 875 mg-125 mg tablet 2023 [id number], [address], [place], [id number], 4 19:13:10 naproxen 500 mg tablet 2023 024 [id number], [address], [place], [id number], 4 19:13:12 Patient TargetsNo targets recorded. Patient InstructionsNo instructions recorded. Reason for Referral None Reported. Medical Equipment None Reported. Allergies Allergen ID Allergen Name Allergen Category Reaction Reaction Severity Criticality Documentation Date Start Date Code Code System Note Provider Name and Address Organization Details Recorded Time [id number] [facility] n rash Not available Not available 01/09/2024 02358 1 [facility]amont[facility] 18:15:13 Medications [...] Updated DateTime 4 182.88 cm 33.9 kg/m2 336236. 09 g 97 % 97 % 6 [...] SNOMED-CT Code Diagnosis ICD10 Code Diagnosis Note [id number] [facility] [address] [phone] 03/07/2022 17:13:04 03/07/2022 18:48:51 [id number] Ger Yoder, _[address] [address] 01/09/2024 17:25:24 01/09/2024 18:49:34 Dental abscess [id number] K04.7 Rx augmentin bid x 10 d for infectionN aprosyn for painReview ed with patient potential adverse side effects of the medication .recommend warm compresses warm salt water garglessof t foodsf/u with dentist FOX - he will go ThursdayPati ent advised to follow up as needed for worsening symptoms or no improvemen Laurecne armijo concerning red flags with patient and reasons [...] Cabrera Member ID Guarantor Name 03/07/2022 1 [facility] [id number] 1 Steve Golden [id number] Steve Golden 01/09/[address] [place] [address] [id number] Steve Golden [id number] Steve Golden Notes Date Note Type Note [...] Yoder, DO [address] [place], [address], [place] - [facility] 01/09/2024 19:13:16
--- OUTSIDE RECORDS SUMMARY | 2025-01-02 17:31 | XMS_ITS | Data Portability ---
Author Organization [facility], Main Office Address [address] 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 Patient consented to telehealth phone visit only. Patient was located in the [facility]. Provider was located in the office. No other persons participated in the telemedicine visit except for the patient unless otherwise indicated here. y Total time of visit was 26 minutes. Not available 07/18/2024 14:31:51 Plan of Treatment Reminders Order Date Submit Date Provider Last Modified By Organization Details Last Modified Time Details Appointments Follow Up DM 30 2024 09:30A M Bolivar Salmeron PA-C Not available Not available Not available BILLING ONLY 2024 09:00A M HANNY SCHEDULE Not available Not available Not available Lab hemoglobi n A1C, fingersti ck 2024 025 In-Office Order, Internal Use Only DO Not Attach Compendium DO Not Attach Compendium, Do Not Delete/merge, [id number] 10/19/2024 11:25:34 hemoglobi n A1C, fingersti ck 2024 025 In-Office Order, Internal Use Only DO Not Attach Compendium DO Not Attach Compendium, Do Not Delete/merge, [id number] 09/02/2024 08:55:42 microalbu min/creat inine, mass ratio, urine 2024 025 ORAN [facility] (Centralized Electronic Ordering - All Locations), Patient Can Go To The Location Of Their Choice, [id number] 09/03/2024 18:05:27 Referral None recorded. Procedures None recorded. Surgeries None recorded. Imaging XR, chest, 2 view - Persisten t cough for 3 months. Pt. had pneumonia . 2024 025 [facility] (Imaging), [address] [place] [address], [address], 10/25/2024 11:27:35 XR, chest, 2 view - Cough for weeks. Completed a course of augmentin last week. R/o infiltrat e. 2024 025 ALEXIS Not available 09/17/2024 14:06:14 XR, chest, 2 view - Productiv e cough, r/o LLL pneumonia . 2024 025 [facility] (Ct Scan), [address] [place] [address], [address], 09/02/2024 14:32:08 Medication Orders Pulmicort Flexhaler 90 mcg/actua tion breath activated 2024 025 [facility]/Pharmacy #0084, [address] [place], [address], 10/19/2024 11:22:34 Mounjaro 10 mg/0.5 mL subcutane ous pen injector 2024 025 [facility]/Pharmacy #0084, [address] [place], [address], 10/19/2024 10:59:45 Toujeo SoloStar U-300 Insulin 300 unit/mL (1.5 mL) subcutane ous pen 2024 025 [facility] [address] [place], [address], 10/19/2024 11:00:24 metformin ER 500 mg tablet,ex tended release 24 hr 2024 025 [facility] [place], [address], 10/19/2024 11:01:13 lisinopri l 10 mg tablet 2024 025 [facility], Located [facility], HALINA Chiu, [address], 10/19/2024 11:14:13 Medrol ([place]) 4 mg tablets in a dose pack 2024 025 [facility] [address] [place], [address], 09/17/2024 10:44:45 codeine 10 mg-guaife nesin 100 mg/5 mL oral liquid 2024 025 [facility] [address] [place], [address], 10/19/2024 10:49:35 albuterol sulfate HFA 90 mcg/actua tion aerosol inhaler 2024 025 [facility] [address] [place], [address], 09/02/2024 09:05:17 Mounjaro 5 mg/0.5 mL subcutane ous pen injector 2024 025 [facility] [address] [place], [address], 10/19/2024 10:58:55 Toublack SoloStar U-300 Insulin 300 unit/mL (1.5 mL) subcutane ous pen 2024 025 [facility] [address] [place], [address], 09/02/2024 08:56:09 benzonata te 200 mg capsule 2024 025 [facility] [address] [place], [address], 09/17/2024 10:23:08 Paxlovid 300 mg (150 mg x 2)-100 mg tablets in a dose pack 2023 024 [facility] [address] [place], [address], 09/02/2024 08:41:52 Patient TargetsNo targets recorded. Patient Instructions Encounter Date Encounter Id Patient Instructions Last Modified By Organization Details Last Modified Time 07/18/2024 [id number] coronavirus (covid-19): care instructions Not available 07/18/2024 14:32:13 isolation procedures: care instructions Not available 07/18/2024 14:32:13 cough: care instructions Not available 07/18/2024 14:32:13 09/02/2024 [id number] wheezing or bronchoconstrict ion: care instructions Not available 09/02/2024 09:05:15 type 2 diabetes: care instructions Not available 09/02/2024 08:55:42 09/17/2024 [id number] cough: care instructions [email or web address] Not available 09/17/2024 10:44:14 10/19/2024 [id number] chronic cough: care instructions Not available 10/19/2024 11:21:52 type 2 diabetes: care instructions Not available 10/19/2024 10:59:43 high blood pressure: care instructions Not available 10/19/2024 11:14:11 learning about high blood pressure Not available 10/19/2024 11:14:11 Reason for Referral None Reported. Results Created Date Observation Date Name Description Value Unit Range Abnormal Flag Note LastModifiedBy Organization Detail LastModifiedTime 08/01/20 24 08/01/2024 TSH+F REE T4 TSH 0.979 uIU/m L 0.450- 4.500 normal Not Available [facility] ([facility]) [address] [facility] [place], [address], 08/02/2024 06:07:41 08/01/20 24 08/01/2024 TSH+F REE T4 T4,free(dire ct) 1.33 NG/dL 0.82-1 .77 normal Not Available [facility] ([facility]) [address] [facility] [place], [address], 08/02/2024 06:07:41 08/01/20 24 08/01/2024 BASIC METAB OLIC PANEL (8) glucose 151 mg/dL 70-99 above high normal Not Available [facility] ([facility]) [address] [facility] [place], [address], 08/02/2024 06:07:43 08/01/20 24 08/01/2024 BASIC METAB OLIC PANEL (8) BUN 48 mg/dL 6-24 above high normal Not Available [facility] ([facility]) [address] [facility] [place], [address], 08/02/2024 06:07:43 08/01/20 24 08/01/2024 BASIC METAB OLIC PANEL (8) creatinine 1.37 mg/dL 0.76-1 .27 above high normal Not Available [facility] ([facility]) [address] [facility] [place], [address], 08/02/2024 06:07:43 08/01/20 24 08/01/2024 BASIC METAB OLIC PANEL (8) eGFR 60 mL/mi n/1.7 3 >59 normal Not Available [facility] ([facility]) [address] [place], [address], 08/02/2024 06:07:43 08/01/20 24 08/01/2024 BASIC METAB OLIC PANEL (8) BUN/creatini ne ratio 35 9-20 above high normal Not Available [facility] ([facility]) [address] [place], [address], 08/02/2024 06:07:43 08/01/20 24 08/01/2024 BASIC METAB OLIC PANEL (8) sodium 133 mmol/ L 134-14 4 below low normal Not Available [facility] ([facility]) [address] [facility] [place], [address], 08/02/2024 06:07:43 08/01/20 24 08/01/2024 BASIC METAB OLIC PANEL (8) potassium 5.2 mmol/ L 3.5-5. 2 normal Not Available [facility] ([facility]) [address] [place], [address], 08/02/2024 06:07:43 08/01/20 24 08/01/2024 BASIC METAB OLIC PANEL (8) chloride 98 mmol/ L 96-106 normal Not Available [facility] ([facility]) [address] [place], [address], 08/02/2024 06:07:43 08/01/20 24 08/01/2024 BASIC METAB OLIC PANEL (8) carbon dioxide, total 21 mmol/ L 20-29 normal Not Available [facility] ([facility]) [address] [place], [address], 08/02/2024 06:07:43 08/01/20 24 08/01/2024 BASIC METAB OLIC PANEL (8) calcium 9.8 mg/dL 8.7-10 .2 normal Not Available [facility] ([facility]) [address] [place], [address], 08/02/2024 06:07:43 08/01/20 24 08/01/2024 LIPID PANEL cholesterol, total 198 mg/dL 100-19 9 normal Not Available [facility] ([facility]) [address] [facility] [place], [address], 08/02/2024 06:07:44 08/01/20 24 08/01/2024 LIPID PANEL triglyceride s 403 mg/dL 0-149 above high normal Not Available [facility] ([facility]) [address] [facility] [place], [address], 08/02/2024 06:07:44 08/01/20 24 08/01/2024 LIPID PANEL HDL cholesterol 29 mg/dL >39 below low normal Not Available [facility] ([facility]) [address] [facility] [place], [address], 08/02/2024 06:07:44 08/01/20 24 08/01/2024 LIPID PANEL VLDL cholesterol stewart 68 mg/dL 5-40 above high normal Not Available [facility] ([facility]) [address] [facility] [place], [address], 08/02/2024 06:07:44 08/01/20 24 08/01/2024 LIPID PANEL LDL chol calc ([facility]) 101 mg/dL 0-99 above high normal Not Available [facility] ([facility]) [address] [facility] [place], [address], 08/02/2024 06:07:44 08/01/20 24 08/01/2024 LIPID PANEL LDL calc comment: SOLE SEAMER Not Available [facility] ([facility]) [address] [facility] [place], [address], 08/02/2024 06:07:44 09/02/1909/03/2024 ALBUM IN/CR EAT RATIO , RANDO M UR creatinine, urine 35.9 mg/dL not estab. normal Not Available [facility] ([facility]) [address] [facility] [place], [address], 09/03/2024 18:05:27 09/02/19 25 09/03/2024 ALBUM IN/CR EAT RATIO , RANDO M UR albumin, urine 10.8 ug/mL not estab. Not Available [facility] ([facility]) [address] [facility], [place], [address], 09/03/2024 18:05:27 09/02/19 25 09/03/2024 ALBUM IN/CR EAT RATIO , RANDO M UR alb/creat ratio 30 mg/g_ creat 0-29 above high normal Nicole l: 0 - 29 Moder ately incre ased: 30 - 300 Sever torres incre ased: >300 Not Available [facility] ([facility]) [address] [facility], [place], [address], 09/03/2024 18:05:27 09/02/19 25 09/02/2024 hemog lobin A1C, finge rstic k A1C 8.6 % 4-6 abnormal Not Available In-Office Order Internal Use Only DO Not Attach Compendium DO Not Attach Compendium, Do Not Delete/merge, [id number] 09/02/2024 08:34:54 10/19/19 25 10/19/2024 hemog lobin A1C, finge rstic k A1C 7.8 % 4-6 high Not Available In-Office Order Internal Use Only DO Not Attach Compendium DO Not Attach Compendium, Do Not Delete/merge, [id number] 10/19/2024 10:39:40 09/02/19 25 09/02/2024 XR, chest , 2 view No observ ation record ed. [facility] [address] [address], [place], [address], 09/02/2024 14:53:24 09/02/19 25 09/02/2024 XR, chest , 2 view No observ ation record ed. [facility] (Ct Scan) [address], [place], [address], 09/05/2024 08:59:02 09/17/19 25 09/17/2024 XR, chest , 2 view PA and latera l chest dated r y 2024. Compar zhanna films are from Novem er 2022. HISTOR Y: Cough. FINDIN GS: [...] right pleura l effusi on. Examin ation [id number]. Thank you for zoya young me to partic ipate in the care of this patien t. WSN: [id number] Minh young Physic yulissa: Christiano Pavon Dictat ed By: Schuyler Reveles MD Dictat ed Date/T red: 2:02 pm Review ed By: Schuyler Reveles MD Signed By: Schuyler Reveles MD Signed Date/T red: 2:02 pm Transc ribed By: ANNE Transc ribed Date/T red: 2:01 pm Patien t Class: Outpat ient [email or web address] [facility] (Outpt Imaging) [address] [place], [address], 10/13/2024 14:20:10 09/20/19 25 09/09/2024 XR, chest , 2 view No observ ation record ed. [email or web address] Not Available 09/21 11:19:12 10/25/19 25 10/25/2024 [...] Impres stephen: Left lower lobe scar. WSN: [id number] Orderi ng Physic yulisas: Zohaib Salmeron Dictat ed By: Kareen Nam MD Dictat ed Date/T red: 11:24 a Review ed By: Kareen Nam MD Signed By: Kareen Nam MD Signed Date/T red: 11:24 am Transc ribed By: CSB Transc ribed Date/T red: 11:23 am Patien t Class: Outpat ient [email or web address] [facility] (Outpt Imaging) [address] [place], [address], 11/08/2024 11:58:40 10/25/19 25 10/25/2024 XR, chest , 2 view No observ ation record ed. [email or web address] [facility] (Imaging) [address] [place], [address], 10/26/2024 08:39:09 Result Notes None recorded. Problems Name Problem SNOMED Code Status Onset Date Resolution Date Notes Provider Name and Address Organization Details Recorded Time Hypothyr oidism 30359188 Active John Paul marcus [facility] [place] 6 10:27:02 Hyperten sive disorder 27871616 Completed 03/01/2018 Bolivar Salmeron PA-C [address] [facility] [address], [place], [address], [facility] [place] 8 17:29:59 Mixed hyperlip idemia 573044732 Active Christiano thompson MD [address] [facility] [address], [place], [address], [facility] [place] 6 17:19:44 Depressi ve disorder 46890550 Completed 10/27/2016 Connie marcus [place] - [facility] 7 15:53:51 Psychoge cecilio overeati ng 776020963 Active Bolivar Salmeron PA-C [address], [place], [address], [facility] 6 16:49:20 Obesity 526645680 Active Bolivar Salmeron PA-C [address], [place], [address], [facility] 6 16:49:20 Attentio n deficit hyperact ivity disorder 169951900 Active Bolivar Salmeron PA-C [address], [place], [address], [facility] 6 16:49:20 Benign hyperten stephen 98044098 Completed 03/01/2018 Bolivar Salmeron PA-C [address], [place], [address], [facility] 8 17:33:52 Snoring 56714332 Completed 10/15/2016 Bolivar Salmeron PA-C [address], [place], [address], [facility] 7 13:43:06 Muscle pain 58002990 Completed 10/15/2016 Bolivar Salmeron PA-C [address], [place], [address], [facility] 7 13:43:20 Essentia l hyperten stephen 29637241 Active Bolivar Salmeron PA-C [address], [place], [address], [facility] 6 16:49:20 Recurren t major depressi on 35933167 Completed 03/01/2018 Bolivar Salmeron PA-C [address], [place], [address], [facility] 8 17:29:46 Major depressi ve disorder 747076968 Completed 07/19/2019 Removal Reason: not specific Sue Adame amrit, [facility] 9 16:01:07 Palpitat ions 34902359 Completed 10/15/2016 Bolivar MEADE-C [address], [place], [address], [facility] 7 13:43:10 Fatigue 20861413 Completed 10/15/2016 Bolivar Salmeron PA-C [address], [place], [address], [facility] 7 13:43:15 Cardiac sarcoido sis 31218889 Active 2016 Bolivar Salmeron PA-C [address], [place], [address], [facility] 7 16:45:32 Obstruct larisa sleep apnea syndrome 51714520 Active 2016 Sleep study done 10/08/16. Bolivar MEADE-C [address], [place], [address], [facility] 7 13:42:47 Coronary atherosc lerosis 863145147 Active 2016 cath done in december , 35% RCA lesion Bolivar Salmeron PA-C [address], [place], [address], [facility] 7 21:03:10 Primary erectile dysfunct ion 129544393 Active 2017 Bolivar MEADE-C [address], [place], [address], [facility] 8 17:39:08 Sleep apnea 52529884 Completed 201807/18/2019 Bolivar MEADE-Estefany [address], [place], [address], [facility] 9 14:37:23 Major depressi on single episode, in partial remissio n 09711062 Active 2018 Sue marcus [facility] 9 16:25:49 History of SARS-CoV -2 28799526992 5830180 Active 2021 Cynthia Fox MA null, [facility] 2 14:04:42 Long-ter m current use of insulin 344121912 Active 2022 Bolivar MEADE-C [address] [address], [place], [address], [facility] 3 17:11:31 Bilatera l age-rela piyush cataract 79753544215 927820 Active 2022 Sue marcus [facility] 3 16:13:21 Uncontro lled type 2 diabetes mellitus 839194831 Active 2022 Sue marcus [facility] 3 11:36:11 COVID-19 873643141 Active 2023 Bolivar MEADE-C [address] [address], [place], [address], [facility] 4 14:31:56 Pneumoni a 971122525 Active 2024 Bolivar MEADE-C [address] [address], [place], [address], [facility] 5 14:47:49 Problem Notes None recorded. Procedures Surgical History Date Name Laterality Status Provider Name and Address Organization Details Recorded Time 10/19/19 25 Diabetic Foot Exam (Monofilament) completed Bolivar MEADE-C [address] [address], [place], [address], [facility] 10/19/2024 12:51:12 06/01/20 24 Diabetic Foot Exam (Monofilament) completed Bolivar Salmeron PA-C [address] [address], [place], [address], [facility] 06/01/2024 11:07:41 12/01/19 24 diabetic retinopathy screening completed Yanique Garcia [facility] 12/21/2023 10:13:58 04/14/20 23 Diabetic Foot Exam (Monofilament) completed Bolivar Salmeron PA-C [address] [address], [place], [address], [facility] 04/14/2023 13:12:09 04/01/20 22 Diabetic Foot Exam (Monofilament) completed Bolivar Salmeron PA-C [address] [facility] [address] [facility], [place], [address], [facility] 04/01/2022 17:04:34 08/13/20 21 Diabetic Foot Exam (Monofilament) completed Bolivar Salmeron PA-C [address] [address], [place], [address], [facility] 08/13/2021 11:35:48 03/20/20 21 Diabetic Foot Exam (Monofilament) completed Bolivar Salmeron PA-C [address] [address], [place], [address], [facility] 03/20/2021 17:06:48 03/07/20 20 Diabetic Foot Exam (Monofilament) cancelled Juliane Decker MA [facility] 03/07/2020 09:46:42 02/22/20 20 Diabetic Foot Exam (Monofilament) cancelled Tori Oh [facility] 02/22/2020 08:41:38 01/27/20 20 Diabetic Foot Exam (Monofilament) cancelled Tori Oh [facility] 01/27/2020 08:50:05 07/18/20 19 Diabetic Foot Exam (Monofilament) completed Bolivar Salmeron PA-C [address] [address], [place], [address], [facility] 07/18/2019 14:35:48 04/12/20 19 Diabetic Foot Exam (Monofilament) completed Tori Oh [facility] 04/12/2019 09:35:41 11/23/19 19 Colonoscopy completed Sugey Mcdonald [facility] 01/12/2019 15:26:43 08/31/19 19 partial repair of rotator cuff completed Dk Martines MA [facility] 04/01/2022 16:10:32 03/01/20 18 Diabetic Foot Exam (Monofilament) completed Hilary davis MA [facility] 03/01/2018 09:37:13 10/01/18 81 repair of kidney completed Dk Martines MA [facility] 04/01/2022 16:09:26 dental surgical procedure completed Raina Sanchez LPN [facility] 06/01/2024 09:55:40 Imaging Results Imaging Date Name Status LastModified by [facility] Details LastModified Time 09/02/2024 XR, chest, 2 view completed [facility] [address], [address], 09/02/2024 14:53:24 09/02/2024 XR, chest, 2 view completed [facility] (Ct Scan) [address] [place], [address], 09/05/2024 08:59:02 09/17/2024 XR, chest, 2 view completed [email or web address] [facility] (Outpt Imaging) [address] [place] [address], [address], 10/13/2024 14:20:10 09/09/2024 XR, chest, 2 view completed [email or web address] Information not available 09/21/2024 11:19:12 10/25/2024 XR, chest, 2 view completed [email or web address] [facility] (Outpt Imaging) [address] [place], [address], 11/08/2024 11:58:40 10/25/2024 XR, chest, 2 view completed [email or web address] [facility] (Imaging) [address] [place], [address], 10/26/2024 08:39:09 Procedure Notes None recorded. Medical Equipment None Reported. Allergies Allergen ID Allergen Name Allergen Category Reaction Reaction Severity Criticality Documentation Date Start Date Code Code System Note Provider Name and Address Organization Details Recorded Time 44889 Byetta medicatio n rash Not available Not available 01/01/2018 30546 1 RxNorm Bolivar Eagle MORALES [address] [facility] [address], [facility] [address], [facility] 8 13:34:43 10132 Trulicity medicatio n nausea Not available Not available 04/01/2022 72388 96 RxNorm caroline re nause a at the 2nd dose HANNY Rayo, [facility] 2 16:01:30 16608 levothyro xine sodium medicatio n abdominal pain Not available low 02/17/2023 60345 RxNorm SAM Wray, [facility] 3 08:44:46 56979 Mounjaro medicatio n diarrhea severe high 07/06/2023 64827 34 RxNorm could not gera ate 10 mg dose SAM Wray, [facility] 3 08:44:50 Medications Name Sig [...] WITH 50MCG FOR TOTAL DOSE OF 250MCG. 2024 active Not Available Not Available Not Avai lable Synthroid 150 mcg tablet Take 1 tablet [...] WITH 200MCG DOSE FOR TOTAL DOSE 250MCG 2024 active Not Available Not Available Not Avai lable codeine 10 mg-guaife nesin 100 mg/5 mL [...] tin 40 mg tablet TAKE 1 TABLET EVERY EVENING active Not Available Not Available No [...] TO1 HOUR PRIOR TO SEXUAL ACTIVITY NEEDED 2024 active Not Available Not Available Not Avai lable Readi-Cat 2 2.1 % (w/v), 2.0 % (w/w) oral suspensio n Take 450 mL twice a day by oral route as directed for 1 day. 04/12 completed Not Available Not Available Not Available omega-3 acid ethyl esters 1 gram capsule TAKE 2 CAPSULES TWICE DAILY active Not Available Not Available [...] completed Not Available Not Available Not Available Mateus SoloStar U-300 Insulin 300 unit/mL (1.5 mL) [...] BY SUBCUTAN EOUS ROUTE FOR 90 DAYS. 2024 active Not Available Not Available Not Avai lable Rybelsus 3 mg tablet Take 1 tablet every day by oral route for 30 days. 08/13 completed Not Available Not Available Not Available FreeStyle Joey 2 Sensor kit REPLACE SENSOR EVERY 14 DAYS 04/04 completed Not Available Not Available Not Available FreeStyle Joey 2 Cypress USE DIRECTED 04/04 completed Not Available Not [...] MG Not Available Not Available Not Available Cerevoe 3 Plus Sensor device active Not Available Not Available Not Available Vitals Date Recorded Body height Body mass index (BMI) Body weight Heart rate Oxygen saturation Oxygen saturation in Arterial blood by Pulse oximetry Body temperature Systolic blood pressure Diastolic blood pressure Provider Name and Address Organization Details Last Updated DateTime 5 182.88 cm 32.3 kg/m2 199140. 98 g 75 /min 96 % 96 % 97.8 [degF] 121 mm[Hg] 68 mm[Hg] Tara Bass MA [facility] 5 08:39:54 Date Recorded Body height Body mass index (BMI) Body weight Heart rate Oxygen saturation Oxygen saturation in Arterial blood by Pulse oximetry Body temperature Systolic blood pressure Diastolic blood pressure Provider Name and Address Organization Details Last Updated DateTime 5 182.88 cm 31.5 kg/m2 749447. 43 g 74 /min 96 % 96 % 98.2 [degF] 95 mm[Hg] 61 mm[Hg] Fitz duong MA [facility] 5 10:22:01 Date Recorded Body height Body mass index (BMI) Body weight Heart rate Oxygen saturation Oxygen saturation in Arterial blood by Pulse oximetry Body temperature Systolic blood pressure Diastolic blood pressure Provider Name and Address Organization Details Last Updated DateTime 5 182.88 cm 31.2 kg/m2 963366. 25 g 67 /min 96 % 96 % 97.7 [degF] 99 mm[Hg] 62 mm[Hg] Fitz duong MA [facility] 5 10:48:45 Social History Question Answer Notes LastModified by Organizat ion Details LastModified Time Tobacco Smoking Status Former Smoker Tori Oh [facility] 07/18/2019 09:06:36 Do You Have An [...] Or Greater Than 100 Degrees Fahrenheit? No replaced by [facility] Information not available 03/23/2020 Are You Or Anyone In Your Household A Health Care Provider Or Emergency Responder? Yes [facility] Information not available 03/23/2020 To The Best Of Your Knowledge Have You Been In Close Proximity To Any Individual Who Tested Positive For COVID-19? No replaced by [facility] [employer] Information not available 03/23/2020 What Was The [...] Start Smoking Tobacco? 14 Quit At 27 [email or web address] Information not available 07/18/2019 Are You Passively [...] level? Moderate 3 x week walking, [facility] Information not available 04/01/2022 Mental Status None recorded. Family History Relationship Description Onset Age of this Age Resolved Age Notes LastModified by Organization Details LastModified Time Mother Myocardial infarction 69 [email or web address] Not available 04/01 16:06:32 Medical History No medical history recorded. Immunizations Vaccine Type Date Status Note Provider Name and Address Organization Details Recorded Time Influenza, MDCK, quadrivalent, preservative 019 completed HANNY Vargas [facility] 08/13/2021 10:18:17 COVID-19, mRNA, LNP-S, PF, 30 mcg/0.3 mL dose 021 completed HANNY Vargas [facility] 08/13/2021 10:18:17 MMR 008 completed HANNY Vargas [facility] 08/13/2021 10:18:17 COVID-19, mRNA, LNP-S, PF, 30 mcg/0.3 mL dose 021 completed HANNY Vargas [facility] 08/13/2021 10:18:18 influenza, unspecified formulation 015 completed HANNY Vargas [facility] 08/13/2021 10:18:18 influenza, unspecified formulation 019 completed HANNY Vargas [facility] 08/13/2021 10:18:18 Influenza, MDCK, quadrivalent, preservative 021 completed HANNY Vargas [facility] 08/13/2021 10:18:18 influenza, unspecified formulation 014 completed HANNY Vargas [facility] 08/13/2021 10:18:18 influenza, unspecified formulation 018 completed HANNY Vargas [facility] 08/13/2021 10:18:18 COVID-19, mRNA, LNP-S, PF, 100 mcg/0.5mL dose or 50 mcg/0.25mL dose 022 completed HANNY Mattson, [facility] 01/21/2022 14:53:08 pneumococcal polysaccharide PPV23 018 completed HANNY Yoon, [facility] 05/13/2022 14:04:29 Tdap 019 completed HANNY Yoon, [facility] 05/13/2022 14:04:29 Influenza, split virus, quadrivalent, PF 016 completed HANNY Yoon, [facility] 05/13/2022 14:04:29 Influenza, MDCK, quadrivalent, PF 022 completed HANNY Castañeda [facility] 04/14/2023 11:05:57 COVID-19, mRNA, LNP-S, bivalent, PF, 30 mcg/0.3 mL dose 022 completed HANNY Castañeda, [facility] 04/14/2023 11:05:57 Influenza, MDCK, quadrivalent, PF 023 completed HANNY Vargas, [facility] 07/06/2023 12:45:24 COVID-19, mRNA, LNP-S, PF, priscila-sucrose, 30 mcg/0.3 mL 023 completed HANNY Castañeda, [facility] 11/18/2023 14:46:19 Influenza, split virus, quadrivalent, PF 017 cancelled patient objection Not Available [facility]/17/2019 02:22:08 Influenza, split virus, trivalent, PF 024 completed Bolivar Salmeron PA-C [address], [address], [facility] 06/01/2024 11:06:39 Past Encounters Encounter ID Performer Location Encounter Start Date Encounter Closed Date Diagnosis/Indication Diagnosis SNOMED-CT Code Diagnosis ICD10 Code Diagnosis Note [id number] Bolivar Salmeron PA-C Main Office [address] [facility] [address] [place] [address] 05/25/2015 15:55:34 05/25/2015 16:49:19 Uncontrolled type 2 diabetes mellitus [id number] Uncontroll ed type II DM. Inconsisteusebio nt diet and compliance to meds. Now [...] to 75 u daily for now. Hypothyroidism 97986997 Stable as per labs in February. Continue current meds. Hypertensive disorder 01572687 Stable HTN on Lisinopril . Repeat micro albumin and CMP. [id number] Bolivar Salmeron PA-C Main Office [address] [facility] [address] [place] [address] 09/12/2015 11:05:48 09/12/2015 11:54:57 Uncontrolled type 2 diabetes mellitus 930527089 E11.65 A1c is improved, but not at goal. Pt. is struggling with consistenc y in diet and exercise. Encouraged to continue recent improvemen ts in diet and add some walking at least 3-4 times weekly. Most recent glucose readings are improved. Continue same medication s. Return in 3 reorder labs. Hypertensive disorder 38 009693 I10 Stable HTN on Lisinopril . Repeat micro albumin and CMP. Psychogeni c overeating 648546648 F50.8 Pt. is inconsiste nt with his counseling . Continue taking Sertraline 50 mg. Mixed hyperlipidemia 267 329698 E78.2 Repeat fasting labs. Continue current meds. Hypothyroidism 35663589 E03.9 Stable as per labs in February. Continue current meds. [id number] Bolivar Salmeron PA-C Main Office [address] [facility] [address] [place] [address] 10/24/2015 15:54:58 10/24/2015 16:38:04 Uncontrolled type 2 diabetes mellitus 312778932 E11.65 Improved diabetic control. Goal A1c is under 7%. Pt. is advised to continue current meds and continue trying to stabilize his calorie intake and increase exercise activity. Test glucose 3 times daily is recommende d due to insulin therapy. F/u 3 m. Snoring 79516348 R06.83 Schedule sleep study. Muscle pain 93323032 M79 .1 Mixed hyperlipidemia 267 601986 E78.2 Repeat fasting labs. Continue current meds. Hypothyroidism 64661194 E03.9 Continue current meds. Repeat TSH. [id number] Bolivar Salmeron PA-C Main Office [address] [facility] [address] [facility] [place] [address] 01/22/2016 15:37:09 01/22/2016 16:39:05 Uncontrolled type 2 diabetes mellitus 566260391 E11.65 Diabetic control was affected by worsened depression , personal stress and inability to use Toujeo. Will try to get approval for Toujeo and continue same doses . Discussed having to be consistent with meds , both insulins and oral antidiabet ics. Pt. will set up alarms for taking meds and other reminders. Reassess in 3 m. or sooner. Noncomplia nce with treatment 2381098 Z91.19 Attention deficit hyperactivity disorder 474109171 F90.9 Pt. is STRONGLY ADVISED TO get back with the specialist and be restarted on ADHD meds. Hypothyroidism 23796652 E03.9 Continue current meds. REview lab test. Essential hypertension 93083145 I10 Stable control. Continue same meds. Recurrent major depression 75455738 F33.9 Connected to uncontroll ed/untreat ed ADHD. Will increase Sertraline to 100 mg daily. F/u 1 month. [id number] Bolivar Salmeron PA-C Main Office [address] [facility] [address] [place] [address] 02/20/2016 15:59:12 02/20/2016 16:57:40 Uncontrolled type 2 diabetes mellitus 975239933 E11.65 Diabetic control was affected by worsened depression , personal stress and inability to use Toujeo. Will try to get approval for Toujeo and continue same doses . Discussed having to be consistent with meds , both insulins and oral antidiabet ics. Pt. will set up alarms for taking meds and other reminders. Reassess in 3 m. or sooner. Major depr essive disorder 990454706 F32.9 Continue Sertraline 100 mg daily. Counseling is recommende d. Hypothyroidism 14609841 E03.9 Continue current meds. Repeat TSH in February. Muscle pain 23797542 M79 .1 Mixed hyperlipidemia 267 140040 E78.2 CPK to be done. Increase Crestor to 40 mg . Take every other day. [id number] Bolivar Salmeron PA-C Main Office [address] [address] [place] [address] 04/11/2016 15:12:28 04/11/2016 15:57:50 Hypothyroidism 67126628 E03.9 Recheck TFTs now. Hold thyroid med for today and tomorrow. 24 hr Holter monitor in 2 days due to week end. Palpitations 25729964 R0 0.2 Might be related to thyroid dysfunctio n. EKG is normal. decrease caffeine. Hold Synthroid for 2 days. Decrease exercise activity. NO strenuous activity for now. Labs for TFTs. 24 hr Holter. [id number] Bolivar Salmeron PA-C Main Office [address] [address] [place] [address] 04/14/2016 09:01:25 04/14/2016 09:59:52 Palpitations 52849139 R00.2 [id number] Bolivar Salmeron PA-C Main Office [address] [address] [place] [address] 04/15/2016 10:05:42 04/15/2016 10:42:12 Hypothyroidism 80958874 E03.9 Fatigue 58655565 R53.83 [id number] Bolivar Salmeron PA-C Main Office [address] [address] [place] [address] 05/21/2016 15:59:27 05/21/2016 16:42:27 Major depressive disorder 757229795 F32.9 Continue Sertraline 100 mg daily. Counseling is recommende d but pt. is not interested . Influenza vaccine needed 6843481045 106 Z23 Hypothyroidism 07679951 E03.9 Take total of 225 mcg daily. Repeat labs in 6-8 weeks. Uncontroll ed type 2 diabetes mellitus 457373163 E11.65 Diabetic control was affected by worsened depression , personal stress and inability to use Toujeo. Will try to get approval for Toujeo and continue same doses . Discussed having to be consistent with meds , both insulins and oral antidiabet ics. Pt. will set up alarms for taking meds and other reminders. Reassess in 3 m. or sooner. [id number] Bolivar Salmeron PA-C Main Office [address] [address] [place] [address] 07/22/2016 15:56:35 07/22/2016 16:50:02 Uncontrolled type 2 diabetes mellitus 615021219 E11.65 Noncomplia nt still to monitoring , meds. ADvised to increase Lantus to 90 u daily and premeal insulin to 25 u TID. Start testing TID premeal and return with records in 4-6 weeks. Mixed hyperlipidemia 267 551041 E78.2 Continue Crestor at 40 mg . Take every other day. Repeat lipids and LFTs prior to next visit. Noncomplia nce with treatment 3115009 Z91.19 MOre than 30 minutes spent in counseling about risks of noncomplia nce to treatment and risks of uncontroll ed sugars. Hypothyroidism 79346526 E03.9 Take total of 225 mcg daily. Repeat TFTs Essential hypertension 09687459 I10 stable control on meds. [id number] Bolivar Salmeron PA-C Main Office [address] [address] [place] [address] 08/19/2016 08:47:25 08/19/2016 09:38:39 Uncontrolled type 2 diabetes mellitus 916967336 E11.65 Overall better glucose readings due to following diet better. Pt. had one predinner hypoglycem ic episode. Will advise to lower Glipizide to 5 mg BID to avoid random hypoglycem ia. HUmalog 25 u in the am and at supper, lower to 20 u at lunch. Lantus down to 85 u daily. F/u and repeat A1c in 6 weeks. Impotence 554181907 N52. 9 Hypothyroidism 47164794 E03.9 Take total of 225 mcg daily. Repeat TFTs Snoring symptoms 5210076 00 R06.83 [id number] Bolivar Salmeron PA-C Main Office [address] [address] [place] [address] 10/27/2016 15:33:15 10/27/2016 16:40:49 Uncontrolled type 2 diabetes mellitus 419321647 E11.65 Overall better glucose readings due to following diet better. Continue Glipizide 5 mg qd. Humalog 28 u in the am , 25 at lunch and 28 at supper, Lantus continue at 90 u daily. If Toujeo or Tresiba covered under the plan, that would be preferred way to go . PT,. will look into that. F/u 3 m. Hypothyroidism 06868779 E03.9 Take total of 225 mcg daily. Repeat TFTs Mixed hyperlipidemia 267 662907 E78.2 Continue Crestor at 40 mg . Take every other day. Repeat lipids and LFTs prior to next visit. Body mass index 30+ - obesity 610137459 Z68.36 Cardiac sarcoidosis 7540 3004 D86.85 F/u with cardiologi st as scheduled. [id number] Bolivar Salmeron PA-C Main Office [address] [facility] [address] [facility] [place] [address] 01/23/2017 09:03:03 01/23/2017 10:32:13 Uncontrolled type 2 diabetes mellitus 358556692 E11.65 Overall worse diabetes chen. Pt. struggles [...] log in 4 weeks. Mixed hyperlipidemia 267 769106 E78.2 Continue Crestor at 40 mg . See lipidologi st Dr. Preciado as scheduled in February. Paxton looking for his input here due to complexity of the case. Again, inconsiste nt diet is getting in a way. I ask pt. today to discontinu e eating eggs daily and have only 2 whole eggs per week and not eat mayonese. [id number] Bolivar Salmeron PA-C Main Office [address] [facility] [address] [facility] [address] 06/16/2017 10:01:40 06/16/2017 10:59:21 Uncontrolled type 2 diabetes mellitus 366747780 E11.65 Uncontroll ed type II DM. Inconsiste [...] Juan Carlos Ashford. F/u 2 m. Hypothyroidism 80306515 E03.9 Take total of 225 mcg daily. Repeat TFTs Inflammati on of rotator cuff tendon 893452494 M65.811 consider ortho referral. Exposure t o Hepatitis C virus 680553885 Z20.5 Body mass index 30+ - obesity 361955687 E66.9 Z68.35 Screening for malignant neoplasm of colon 515955508 Z12.11 [id number] Bolivar Salmeron PA-C Main Office [address] [facility] [address] [place] [address] 06/29/2017 09:33:57 06/29/2017 10:38:36 Shoulder tendinitis 933473550 M75.81 Refer to an orthopedis t for cortisone shots. Uncontroll ed type 2 diabetes mellitus 021205638 E11.65 Uncontroll ed type II DM. Inconsiste [...] Dr. Juan Carlos Ashford. Hypertensive disorder 38 553469 I10 stable renal tests and no microalbum inuria. pt. is on ACEI. Body mass index 30+ - obesity 454354336 E66.9 Z68.36 Attention deficit hyperactivity disorder 894770996 F90.9 Estella. will,be made for him for counseling here in the office and also for [facility] in [facility] to address ADHD and get back on meds. [id number] Bolivar Salmeron PA-C Main Office [address] [facility] [address] [place] [address] 07/27/2017 10:28:28 07/27/2017 11:35:18 Immunization refused 130593522 Z28.21 Uncontroll ed type 2 diabetes mellitus 440950726 E11.65 Diabetes improved due to changes as [...] as per referral and counselor. Essential hypertension 07917333 I10 stable control on meds. Recurrent major depression 04393751 F33.9 Continue counseling with Colette weekly and meds. Attention deficit hyperactivity disorder 961569275 F90.9 [facility] for eval. and treatment. Body mass index 30+ - obesity 973423760 E66.9 Z68.36 [id number] Bolivar Salmeron PA-C Main Office [address] [place] [address] 08/18/2017 09:50:29 08/18/2017 10:46:39 Uncontrolled type 2 diabetes mellitus 794797601 E11.65 IMporved diabetic control . LOwer HUmalog to 25 u TID and test 2 hrpc. If still drops below 100 postmeal, keep decreasing by 2 u every 3 days. Toujeo 80 u daily. Pt. is seeing Dr. Faith batres today and will discuss lowering Glyburide as well. F/u 3 m. Attention deficit hyperactivity disorder, predominantly inattentive type 40180439 F90.0 Continue under care of [facility]. Pt. is also beeing referred to see psychiatri for SSRI med adjustment s. Will continue counseling . Abnormal foot pulse 6943 7003 R09.89 [id number] Bolivar Salmeron PA-C Main Office [address] [place] [address] 01/01/2018 12:57:38 01/01/2018 14:16:45 Uncontrolled type 2 diabetes mellitus 941735180 E11.65 Increase Toujeo to 110 u daily. Continue HUmalog 20 u TID . INvokana and Metfromin will be combined into INvokamet to decrease pill burden. Continue Glyburide 5 mg BID. PT. will let me know if he agrees to try Trulicity. I discussed pros and cons of taking this med with selvin box warning. It would be better if pt. could be off Glyburide due to high risk of hypoglycem ia. F/u as scheduled for PE. Mixed hyperlipidemia 267 131639 E78.2 Continue Crestor at 40 mg . See lipidologi st Dr. Preciado as scheduled in February. Paxton looking for his input here due to complexity of the case. Again, inconsiste nt diet is getting in a way. I ask pt. today to discontinu e eating eggs daily and have only 2 whole eggs per week and not eat mayonese. Hypothyroidism 05390082 E03.9 Take total of 225 mcg daily. Repeat TFTs Candidiasis of skin 4988 3006 B37.2 Hypertensive disorder 38 907317 I10 stable renal tests and no microalbum inuria. pt. is on ACEI. [id number] Bolivar Salmeron PA-C Main Office [address] [facility] [address] [place] [address] 03/01/2018 09:00:07 03/01/2018 10:24:00 Adult health examination 086708158 Z00.00 Mixed hyperlipidemia 267 810621 E78.2 Continue Crestor at [address] Preciado as scheduled in February. Paxton looking for his input here due to complexity of the case. Again, inconsiste nt diet is getting in a way. I ask pt. today to discontinu e eating eggs daily and have only 2 whole eggs per week and not eat mayonese. Hypothyroidism 57800662 E03.9 Take total of 225 mcg daily. TFTs were normal. Uncontroll ed type 2 diabetes mellitus 903286326 E11.65 Increase Toujeo to 110 u daily. [...] F/u as scheduled for PE. Essential hypertension 61050639 I10 stable control on meds. Administra tion of viral vaccine 87381493 Z23 Screening for malignant neoplasm of colon 043879947 Z12.11 Administra tion of pneumococcal vaccine 66059466 Z23 Screening for malignant neoplasm of prostate 878276891 Z12.5 Attention deficit hyperactivity disorder 393669934 F90.9 f/u psych. Obstructiv e sleep apnea syndrome 14910691 G47.33 Continue using CPAP. Pt. was encouraged to use it more than 4 hrs per night. Coronary atherosclerosis 701051584 I25.10 f/u cardiology . Cardiac sarcoidosis 7540 3004 D86.85 F/u with cardiology . Major depr essive disorder 692968684 F32.9 F/u psych and counseling . Body mass index 30+ - obesity 111876166 E66.9 Z68.36 Primary er ectile dysfunction 464807877 N52.9 [id number] Bolivarcarloz Salmeron PA-C Main Office [address] [facility] [address] [place] [address] 09/13/2018 14:29:34 09/13/2018 15:57:50 Uncontrolled type 2 diabetes mellitus 805258034 E11.65 Increase Toujeo to 110 u daily. [...] F/u as scheduled for PE. Essential hypertension 22389536 I10 stable control on meds. Hypothyroidism 17082008 E03.9 Take total of 225 mcg daily. Repeat TFTs. Screening for malignant neoplasm of colon 693799939 Z12.11 Pt. is overdue. Attention deficit hyperactivity disorder 541093896 F90.9 f/u psych. Major depr essive disorder 969616779 F32.9 F/u psych and counseling . Mixed hyperlipidemia 267 930149 E78.2 f/u with Dr. Preciado. Body mass index 30+ - obesity 220140830 E66.9 Z68.35 [id number] Madi Teixeira MD Main Office [address] [facility] [address] [place] [address] 01/11/2019 09:43:04 01/11/2019 11:03:56 Attention deficit hyperactivity disorder 962281279 F90.9 f/u psych. Hypothyroidism 91040764 E03.9 Take total of 225 mcg daily. Repeat TFTs. Essential hypertension 72381483 I10 stable control on meds. Uncontroll ed type 2 diabetes mellitus 170063331 E11.65 Pt. is advised to start using CGM for testing , as he does not have time for fingerstic ks at work. Rx sent in for 14 day Joey. Continue same meds. F/u 3 m or sooner. Administra tion of viral vaccine 74559657 Z23 Mixed hyperlipidemia 267 455697 E78.2 f/u with Dr. Preciado. Hernia of anterior abdominal wall 414113211 K43.9 PT. has large ventral and ? umbilical hernia. Will schedule CT. Body mass index 30+ - obesity 697610099 E66.9 Z68.35 [id number] Madi Teixeira MD Main Office [address] [facility] [address] [facility] [place] [address] 04/12/2019 09:17:50 04/12/2019 10:23:21 Essential hypertension 41262137 I10 stable control on meds. Uncontroll ed type 2 diabetes mellitus 587418195 E11.65 Glycemic control improved . Pt. is following vegetarian diet and tries to stay active. Increase Humalog to 33 u at lunch adn 35 at supper. Continue Toujeo 110 u daily. Add small snack prelunch to avoid hypoglycem ia , lower calories at lunch and dinner. F/u 3 m. 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 Hypothyroidism 09394698 E03.9 repeat labs prior to next visit. Body mass index 30+ - obesity 977324046 E66.9 Z68.35 [id number] Madi Teixeira MD Main Office [address] [facility] [address] [place] [address] 07/18/2019 08:44:41 07/18/2019 10:11:05 Adult health examination 371059044 Z00.00 Uncontroll ed type 2 diabetes mellitus 752642320 E11.65 Glycemic control is stable, although not [...] labs prior to next visit. Essential hypertension 79674170 I10 stable control on meds. Hypothyroidism 92947123 E03.9 repeat labs prior to next visit. Obstructiv e sleep apnea syndrome 36701439 G47.33 Continue using CPAP. Primary er ectile dysfunction 133917767 N52.9 Mixed hyperlipidemia 267 758099 E78.2 f/u with Dr. Preciado. 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 879671340 E11.3299 F/u with ophthalmol ogist as scheduled. Coronary atherosclerosis 042457444 I25.10 f/u cardiology . Cardiac sarcoidosis 7540 3004 D86.85 F/u with cardiology . Attention deficit hyperactivity disorder 199274868 F90.0 f/u psych. Major depr ession single episode, in partial remission 36422561 F32.4 F/u psych and counseling . [id number] Madi Teixeira MD Main Office [address] [place] [address] 03/23/2020 11:04:57 03/23/2020 12:22:49 Uncontrolled type 2 diabetes mellitus 209499804 E11.65 Glycemic control is not ideal. Pt. [...] nonpr 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 276193462 E11.3299 F/u with ophthalmol ogist as scheduled. Major depr ession single episode, in partial remission 71576513 F32.4 F/u psych and counseling . Hypothyroidism 98540737 E03.9 continue current meds. Essential hypertension 57471686 I10 stable control on meds. Coronary atherosclerosis 972760370 I25.10 f/u cardiology . [id number] Madi Teixeira MD Main Office [address] [facility] [address] [place] [address] 06/22/2020 14:29:22 06/22/2020 15:14:45 Uncontrolled type 2 diabetes mellitus 730054847 E11.65 Glycemic control is not ideal. Pt. [...] other meds the same. F/u 6 weeks. [id number] [facility] [address] [facility] [address] [place] [address] 07/02/2020 08:43:13 07/02/2020 14:37:14 Generalized anxiety disorder 51352850 F41.1 Continue current meds. F/u with psych as scheduled for f/u on med changes. If episodes of breathing problem reoccur, pt. will call me. Obstructiv e sleep apnea syndrome 15113296 G47.33 recommend to contact sleep medicine office and see if full mask can be replaced with partial coverage mask due to anxiety and difficulty sleeping. [id number] Bolivar Salmeron PA-C Main Office [address] [facility] [address] [place] [address] 11/27/2020 15:32:42 11/27/2020 16:24:57 Uncontrolled type 2 diabetes mellitus 230170321 E11.65 Glycemic control is improved due to [...] do upload prior to visit. Essential hypertension 79742319 I10 stable control on meds. [id number] Bolivar Salmeron PA-C Main Office [address] [facility] [address] [place] [address] 03/20/2021 15:35:45 03/20/2021 17:00:54 Adult health examination 511764382 Z00.00 Vaccines: UTD, COVID vaccinatio n in October1Colono scopy: UTD Cardiac sarcoidosis 7540 3004 D86.85 Follow up with cardiology . Last visit December 2019 and indicated 6 month follow up at that time- overdue. Coronary atherosclerosis 564844820 I25.10 Follow up with cardiology . Essential hypertension 28230669 I10 Stable. Continue current medication . 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 902301511 E11.3299 Follow up with ophthalmol ogist as scheduled in March. Hypothyroidism 02387348 E03.9 Will recheck labs. Continue current medication s. Major depr ession single episode, in partial remission 22687290 F32.4 Follow up psych and counseling . Mixed hyperlipidemia 267 869927 E78.2 Elevated triglyceri do on 03/13/21. Follow up with cardiologi . Obstructiv e sleep apnea syndrome 97710437 G47.33 Stable. Using CPAP nightly. Psychogeni c overeating 611225940 F50.89 Weight gain of 5lbs since December. Follow up psych and counseling . Uncontroll ed type 2 diabetes mellitus 943364620 E11.65 A1C today of 7.9%- improvemen t [...] weeks with meter. Attention deficit hyperactivity disorder 243343352 F90.0 Follow up psych Hypoglycemia 160804874 E 16.2 Benign pro static hyperplasia 749359759 N40.0 [id number] Regan Laird MD Main Office [address] [facility] [address] [place] [address] 08/13/2021 09:57:15 08/13/2021 11:19:31 Uncontrolled type 2 diabetes mellitus 354779594 E11.65 A1C today is high due diet and also pt. did not start trulicity. WE will try at 0.75 mg weekly and lower insulin by 10-20 u on toujeo. Also, plan to decrease glyburide if pt. tolerates theraputic dose of trulicity. Pt. was advised to return to diabetic portion control. Repeat labs in 6 weeks. Essential hypertension 25713698 I10 Stable. Continue current medication . 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 [id number] Regan Laird MD Main Office [address] [facility] [address] [place] [address] 01/21/2022 14:46:47 01/21/2022 15:45:35 Essential hypertension 40987764 I10 stable on current meds. 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 072675835 E11.3299 Follow up with ophthalmol ogist Uncontroll ed type 2 diabetes mellitus 303039094 E11.65 Tresiba will be 80 u BID to improved overnight glucose. Novolog 30 inn the am and at lunch 35 u at dinner. Lower glyburide to 5 mg BID, Increase trulicity to 1.5 mg weekly, continue metformin. F/u 6 weeks. Mixed hyperlipidemia 267 427942 E78.2 Elevated triglyceri do on 03/13/21. Follow up with cardiologi st. Hypothyroidism 39544673 E03.9 Will recheck labs. Continue current medication s. [id number] Regan Laird MD Main Office [address] [facility] [address] [place] [address] 04/01/2022 15:53:54 04/01/2022 16:51:09 Adult health examination 432929792 Z00.00 Vaccines: UTD, COVID vaccinatio n in October1Colono scopy: UTD Uncontroll ed type 2 diabetes mellitus 167654497 E11.65 Tresiba will be 80 u BID [...] for med adjustment . Psychogeni c overeating 372163047 F50.89 Continue therapy. Primary er ectile dysfunction 677676172 N52.9 not on meds. Obstructiv e sleep apnea syndrome 15880219 G47.33 Stable. Using CPAP nightly. Mixed hyperlipidemia 267 581296 E78.2 repeat fasting lipids. Continue current meds and low carb diet. 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 247517382 E11.3299 Follow up with ophthalmol ogist Major depr ession single episode, in partial remission 92353326 F32.4 Follow up psych and counseling . Hypothyroidism 56254038 E03.9 Will recheck labs. Continue current medication s. Cardiac sarcoidosis 7540 3004 D86.85 Follow up with cardiology in May. 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 Essential hypertension 29470409 I10 stable on current meds. Coronary atherosclerosis 071900980 I25.10 Follow up with cardiology . Ingrowing toenail 307600 009 L60.0 refer to hardwood floor refinisher . Diabetic on insulin 1707 86642 Z79.4 [id number] Behzad Gabriel MD Telehealt h [address] [facility] [address] [facility] [place] [address] 05/13/2022 10:03:13 05/14/2022 11:21:45 COVID-19 306240627 U07.1 advised pt to hold statin for 1 week, to avoid tadalafil for 1 week and to cut buspirone dose in 1/2 (5mg bid) for 1 week as well Counseling 539929501 Z71 .9 Health advice, education or counseling done for COVID 19 [id number] Regan Laird MD Main Office [address] [facility] [address] [facility] [place] [address] 07/04/2022 14:25:33 07/04/2022 15:51:46 Uncontrolled type 2 diabetes mellitus 226177553 E11.65 Improving diab control on Mounjaro , but pt. is several diabetic medication s. I would like him to reduce glyburide first down to 5 mg BID and lower Toujeo by 5 u. Continue Invokana and metfromin , increase Mounjaro to 5 mg weekly. Goal A1c is under 7%. F/u 6 weeks 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 777187588 E11.3299 Follow up with ophthalmol ogist Essential hypertension 65044793 I10 stable on current meds. Hypothyroidism 99355711 E03.9 Will recheck labs. Continue current medication s. Major depr ession single episode, in partial remission 93176565 F32.4 Follow up psych and counseling . 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 [id number] Regan Laird MD Main Office [address] [facility] [address] [place] [address] 11/05/2022 11:04:22 11/05/2022 12:06:41 Diabetic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
== END 2025-01-02 16:09 | disposition home or self-care (01) ==
PROVIDERS: PCP Physician Assistant Medical; Visit Provider Clinical Nurse Specialist Psychiatric/Mental Health
DX: F90.2 Attention-deficit hyperactivity disorder, combined type (principal); F41.1 Generalized anxiety disorder; F33.41 Major depressive disorder, recurrent, in partial remission; R41.3 Other amnesia
CPT/HCPCS: 99215

== ENCOUNTER → 2025-01-02 16:07 | Outpatient (BNVA) | payer OTHER, SELFPAY | PROVIDERS: PCP Physician Assistant Medical; Visit Provider Clinical Nurse Specialist Psychiatric/Mental Health ==

== ENCOUNTER 2025-01-05 16:27 | Outpatient (REF) | payer OTHER, SELFPAY ==
--- OUTSIDE RECORDS SUMMARY | 2025-01-05 16:30 | XMS_ITS | Data Portability ---
Author Organization [facility] [id number] Address [address] [place] [address] Assessment No assessment recorded. Plan of Treatment Reminders Order Date Submit Date Provider Last Modified By Organization Details Last Modified Time Details Appointments None recorded. Lab None recorded. Referral None recorded. Procedures None recorded. Surgeries None recorded. Imaging None recorded. Medication Orders Augmentin 875 mg-125 mg tablet 2023 [id number], [address] [place], [place], [id number], 4 19:13:10 naproxen 500 mg tablet 2023 024 [place] [id number], [address] [place], [place], [id number], 4 19:13:12 Patient TargetsNo targets recorded. Patient InstructionsNo instructions recorded. Reason for Referral None Reported. Medical Equipment None Reported. Allergies Allergen ID Allergen Name Allergen Category Reaction Reaction Severity Criticality Documentation Date Start Date Code Code System Note Provider Name and Address Organization Details Recorded Time 769382 [facility] medic[facility] n rash Not available Not available 01/09/2024 73607 1 [facility] HALINA Viramontes [facility] 18:15:13 Medications [...] Updated DateTime 4 182.88 cm 33.9 kg/m2 591635. 09 g 97 % 97 % 6 [...] SNOMED-CT Code Diagnosis ICD10 Code Diagnosis Note [id number] [facility] [address] [address] 03/07/2022 17:13:04 03/07/2022 18:48:51 [id number] Ger Yoder, _[address] [address] 01/09/2024 17:25:24 01/09/2024 18:49:34 Dental abscess 589213663 K04.7 Rx augmentin bid x 10 d [...] Recorded Advance Directives Directive None Recorded Payers Insurance Date Sequence Insurance Name Policy Number Policy Cabrera Covered Member ID Cabrera Member ID Guarantor Name 01/09/[address] [place] [address] [id number] 1 Steve Golden [id number] Steve Golden Notes Date Note Type Note [...] Yoder, DO [address] [place], [address], [place] - [facility] 01/09/2024 19:13:16
--- OUTSIDE RECORDS SUMMARY | 2025-01-05 16:31 | XMS_ITS | Data Portability ---
Author Organization [facility], Main Office Address [address] [facility] [address] [place] [address] Care Team Providers Care Personal Lines Appraiser Name Role Phone BOLIVAR SALMERON Primary Care Provider STACY CORNEJO Customer Support Technician AJAY MANCUSO Printer Technician ANGIE SILVERIO Front Desk Auxiliary MICHAEL CAMPOVERDE Warehouse Distribution Manager ROSA ELENA LESTER Orthopedic Surgeon [phone] Assessment No assessment recorded. Plan of Treatment Reminders Order Date Submit Date Provider Last Modified By Organization Details Last Modified Time Details Appointments BILLING ONLY 2024 09:00A M [place] SCHEDULE Not available Not available Not available [place] 2024 09:00A M [place] SCHEDULE Not available Not available Not available Lab hemoglobi n A1C, fingersti ck 2024 025 In-Office Order, Internal Use Only DO Not Attach Compendium DO Not Attach Compendium, Do Not Delete/merge, [id number] 10/19/2024 11:25:34 hemoglobi n A1C, fingersti ck 2024 025 In-Office Order, Internal Use Only DO Not Attach Compendium DO Not Attach Compendium, Do Not Delete/merge, [id number] 09/02/2024 08:55:42 microalbu min/creat inine, mass ratio, urine 2024 025 ALEXIS [facility] (Centralized Electronic Ordering - All Locations), Patient Can Go To The Location Of Their Choice, [id number] 09/03/2024 18:05:27 Referral None recorded. Procedures None recorded. Surgeries None recorded. Imaging XR, chest, 2 view - Persisten t cough for 3 months. Pt. had pneumonia . 2024 025 [facility] (Imaging), [address] [place], [address], 10/25/2024 11:27:35 XR, chest, 2 view - Cough for weeks. Completed a course of augmentin last week. R/o infiltrat e. 2024 025 ALEXIS Not available 09/17/2024 14:06:14 XR, chest, 2 view - Productiv e cough, r/o LLL pneumonia . 2024 025 [facility] (Ct Scan), [address] [place], [address], 09/02/2024 14:32:08 Medication Orders Pulmicort Flexhaler 90 mcg/actua tion breath activated 2024 025 [facility]/Pharmacy #0084, [address] [place], [address], 10/19/2024 11:22:34 Mounjaro 10 mg/0.5 mL subcutane ous pen injector 2024 025 [facility]/Pharmacy #0084, [address] [place], [address], 10/19/2024 10:59:45 Toujeo SoloStar U-300 Insulin 300 unit/mL (1.5 mL) subcutane ous pen 2024 025 [facility] [address] [place], [address], 10/19/2024 11:00:24 metformin ER 500 mg tablet,ex tended release 24 hr 2024 025 [facility], [place], [address], 10/19/2024 11:01:13 lisinopri l 10 mg tablet 2024 025 [facility], [facility], [place], [address], 10/19/2024 11:14:13 Medrol ([place]) 4 mg tablets in a dose pack 2024 025 [facility] [address] [place], [address], 09/17/2024 10:44:45 codeine 10 mg-guaife nesin 100 mg/5 mL oral liquid 2024 025 [facility] [address] [place], [address], 10/19/2024 10:49:35 albuterol sulfate HFA 90 mcg/actua tion aerosol inhaler 2024 025 [facility] [address] [facility] [place], [address], 09/02/2024 09:05:17 Mounjaro 5 mg/0.5 mL subcutane ous pen injector 2024 025 [facility] [address] [place], [address], 10/19/2024 10:58:55 Toujeo SoloStar U-300 Insulin 300 unit/mL (1.5 mL) subcutane ous pen 2024 025 [facility] [address] [place], [address], 09/02/2024 08:56:09 benzonata te 200 mg capsule 2024 025 [facility] [address] [place], [address], 09/17/2024 10:23:08 Patient TargetsNo targets recorded. Patient Instructions Encounter Date Encounter Id Patient Instructions Last Modified By Organization Details Last Modified Time 09/02/2024 [id number] wheezing or bronchoconstrict ion: care instructions Not available 09/02/2024 09:05:15 type 2 diabetes: care instructions Not available 09/02/2024 08:55:42 09/17/2024 [id number] cough: care instructions [email or web address] Not available 09/17/2024 10:44:14 10/19/2024 [id number] chronic cough: care instructions Not available 10/19/2024 11:21:52 type 2 diabetes: care instructions Not available 10/19/2024 10:59:43 high blood pressure: care instructions Not available 10/19/2024 11:14:11 learning about high blood pressure Not available 10/19/2024 11:14:11 Reason for Referral None Reported. Results Created Date Observation Date Name Description Value Unit Range Abnormal Flag Note LastModifiedBy Organization Detail LastModifiedTime 09/02/1909/03/2024 ALBUM IN/CR EAT RATIO , RANDO M UR creatinine, urine 35.9 mg/dL not estab. normal Not Available [facility] ([facility]) [address] [place], [address], 09/03/2024 18:05:27 09/02/1909/03/2024 ALBUM IN/CR EAT RATIO , RANDO M UR albumin, urine 10.8 ug/mL not estab. Not Available [facility] ([facility]) [address] [place], [address], 09/03/2024 18:05:27 09/02/1909/03/2024 ALBUM IN/CR EAT RATIO , RANDO M UR alb/creat ratio 30 mg/g_ creat 0-29 above high normal Nicole l: 0 - 29 Moder ately incre ased: 30 - 300 Sever torres incre ased: >300 Not Available [facility] ([facility]) [address], [place], [address], 09/03/2024 18:05:27 09/02/19 25 09/02/2024 hemog lobin A1C, raheem rstic k A1C 8.6 % 4-6 abnormal Not Available In-Office Order Internal Use Only DO Not Attach Compendium DO Not Attach Compendium, Do Not Delete/merge, [id number] 09/02/2024 08:34:54 10/19/19 25 10/19/2024 hemog lobin A1C, finge rstic k A1C 7.8 % 4-6 high Not Available In-Office Order Internal Use Only DO Not Attach Compendium DO Not Attach Compendium, Do Not Delete/merge, [id number] 10/19/2024 10:39:40 09/02/19 25 09/02/2024 XR, chest , 2 view No observ ation record ed. [facility] [address] [address], [place], [address], 09/02/2024 14:53:24 09/02/19 25 09/02/2024 XR, chest , 2 view No observ ation record ed. [facility] (Ct Scan) [address] [facility], [place], [address], 09/05/2024 08:59:02 09/17/19 25 09/17/2024 XR, chest , 2 view PA and latera l chest dated 2024. Compar zhanna films are from [facility] er 2022. HISTOR Y: Cough. FINDIN [...] right pleura l effusi on. Examin ation [id number]. Thank you for zoya young me to partic ipate in the care of this patien t. WSN: [id number] [address] Physic yulissa: Christiano Pavon Dictat ed By: Schuyler Reveles MD Dictat ed Date/T red: 2:02 pm Review ed By: Schuyler Reveles MD Signed By: Schuyler Reveles MD Signed Date/T red: 2:02 pm Transc ribed By: BRENDONB Transc ribed Date/T red: 2:01 pm Patien t Class: Outpat ient [email or web address] [facility] (Outpt Imaging) [address] [place] [address], [address], 10/13/2024 14:20:10 09/20/19 25 09/09/2024 XR, chest , 2 view No observ ation record ed. [email or web address] Not Available 09/21 11:19:12 10/25/19 25 10/25/2024 XR, chest , 2 view Examin ation: Chest perfor med on 025. Histor y: Cough. Findin gs: Fronta l [...] Impres stephen: Left lower lobe scar. WSN: [id number] Orderi ng Physic yulissa: Zohaib Slameron Dictat ed By: Kareen Nam MD Dictat ed Date/T red: 11:24 a Review ed By: Kareen Nam MD Signed By: Kareen Nam MD Signed Date/T red: 11:24 am Transc ribed By: CSB Transc ribed Date/T red: 02/25/ 25 11:23 am Patien t Class: Outpat ient [email or web address] (Out[facility] Imaging) [address], [place], [address], 11/08/2024 11:58:40 10/25/19 25 10/25/2024 XR, chest , 2 view No observ ation record ed. [email or web address] [facility] (Imaging) [address] [facility], [place], [address], 10/26/2024 08:39:09 Result Notes None recorded. Problems Name Problem SNOMED Code Status Onset Date Resolution Date Notes Provider Name and Address Organization Details Recorded Time Hypothyr oidism 57854443 Active John Paul marcus, [facility] 6 10:27:02 Hyperten sive disorder 98026937 Completed 03/01/2018 Bolivar Salmeron PA-C [address] [facility] [address], [place], [address], [facility] 8 17:29:59 Mixed hyperlip idemia 478269736 Active Christiano thompson MD [address] [facility] [address], [place], [address], [facility] 6 17:19:44 Depressi ve disorder 08251959 Completed 10/27/2016 [facility] 7 15:53:51 Psychoge cecilio overeati ng 227127573 Active Bolivar Salmeron PA-C [address] [facility] [address], [place], [address], [facility] 6 16:49:20 Obesity 151097722 Active Bolivar Salmeron PA-C [address] [facility] [address], [place], [address], [facility] 6 16:49:20 Attentio n deficit hyperact ivity disorder 441834697 Active Bolivar Salmeron PA-C [address], [place], [address], [facility] 6 16:49:20 Benign hyperten stephen 33639379 Completed 03/01/2018 Bolivar Salmeron PA-C [address], [place], [address], [facility] 8 17:33:52 Snoring 90524111 Completed 10/15/2016 Bolivarlavonne MEADE-C [address], [place], [address], [facility] 7 13:43:06 Muscle pain 38957485 Completed 10/15/2016 Bolivarcarloz MEADE-C [address], [place], [address], [facility] 7 13:43:20 Essentia l hyperten stephen 81648702 Active Bolivarcarloz MEADE-C [address], [place], [address], [facility] 6 16:49:20 Recurren t major depressi on 50357498 Completed 03/01/2018 Bolivarcarloz MEADE-C [address], [place], [address], [facility] 8 17:29:46 Major depressi ve disorder 247766513 Completed 07/19/2019 Removal Reason: not specific Sue marcus, [facility] 9 16:01:07 Palpitat ions 59008095 Completed 10/15/2016 Bolivarcarloz MEADE-C [address], [place], [address], [facility] 7 13:43:10 Fatigue 85211859 Completed 10/15/2016 Bolivarlavonne Salmeron PA-C [address], [place], [address], [facility] 7 13:43:15 Cardiac sarcoido sis 11321581 Active 2016 Bolivar MEADE-C [address], [place], [address], [facility] 7 16:45:32 Obstruct larisa sleep apnea syndrome 17706934 Active 2016 Sleep study done 10/08/16. Bolivar Salmeron PA-C [address], [place], [address], [facility] 7 13:42:47 Coronary atherosc lerosis 791555960 Active 2016 cath done in december , 35% RCA lesion Bolivarcarloz MEADE-C [address], [place], [address], [facility] 7 21:03:10 Primary erectile dysfunct ion 722207745 Active 2017 Bolivar MEADE-C [address], [place], [address], [facility] 8 17:39:08 Sleep apnea 45205397 Completed 201807/18/2019 Bolivar MEADE-C [address], [place], [address], [facility] 9 14:37:23 Major depressi on single episode, in partial remissio n 14833034 Active 2018 Sue marcus, [facility] 9 16:25:49 History of SARS-CoV -2 68475223242 9270178 Active 2021 HANNY Yoon, [facility] 2 14:04:42 Long-ter m current use of insulin 764091295 Active 2022 Bolivar MEADE-C [address], [place], [address], [facility] 3 17:11:31 Bildianna l age-rela piyush cataract 37724890872 782327 Active 2022 Sue marcus, [facility] 3 16:13:21 Uncontro lled type 2 diabetes mellitus 713681752 Active 2022 Sue Nazariojessica marcus, [facility] 3 11:36:11 COVID-19 315697816 Active 2023 Bolivar Salmeron PA-C [address] [address], [place], [address], [facility] 4 14:31:56 Pneumoni a 067648359 Active 2024 Bolivar Salmeron PA-C [address] [address], [place], [address], [facility] 5 14:47:49 Problem Notes None recorded. Procedures Surgical History Date Name Laterality Status Provider Name and Address Organization Details Recorded Time 10/19/19 25 Diabetic Foot Exam (Monofilament) completed Bolivar Salmeron PA-C [address], [address], [facility] 10/19/2024 12:51:12 06/01/20 24 Diabetic Foot Exam (Monofilament) completed Bolivar Salmeron PA-C [address], [address], [facility] 06/01/2024 11:07:41 12/01/19 24 diabetic retinopathy screening completed Yanique Garcia [facility] 12/21/2023 10:13:58 04/14/20 23 Diabetic Foot Exam (Monofilament) completed Bolivar Salmeron PA-C [address], [address], [facility] 04/14/2023 13:12:09 04/01/20 22 Diabetic Foot Exam (Monofilament) completed Bolivar Salmeron PA-C [address] [address], [place], [address], [facility] 04/01/2022 17:04:34 08/13/20 21 Diabetic Foot Exam (Monofilament) completed Bolivar MEADE-C [address] [address], [place], [address], [facility] 08/13/2021 11:35:48 03/20/20 21 Diabetic Foot Exam (Monofilament) completed Bolivar MEADE-C [address] [facility] [address] [facility], [place], [address], [facility] 03/20/2021 17:06:48 03/07/20 20 Diabetic Foot Exam (Monofilament) cancelled Juliane Decker MA [facility] 03/07/2020 09:46:42 02/22/20 20 Diabetic Foot Exam (Monofilament) cancelled Tori Oh [facility] 02/22/2020 08:41:38 01/27/20 20 Diabetic Foot Exam (Monofilament) cancelled Tori Oh [facility] 01/27/2020 08:50:05 07/18/20 19 Diabetic Foot Exam (Monofilament) completed Bolivar MEADE-C [address] [address], [place], [address], [facility] 07/18/2019 14:35:48 04/12/20 19 Diabetic Foot Exam (Monofilament) completed Tori Oh [facility] 04/12/2019 09:35:41 11/23/19 19 Colonoscopy completed Sugey Mcdonald [facility] 01/12/2019 15:26:43 08/31/19 19 partial repair of rotator cuff completed Dk Martines MA [facility] 04/01/2022 16:10:32 03/01/20 18 Diabetic Foot Exam (Monofilament) completed Hilary davis MA [facility] 03/01/2018 09:37:13 10/01/18 81 repair of kidney completed Dk Martines [place] [facility] 04/01/2022 16:09:26 dental surgical procedure completed Raina Sanchez LPN [facility] 06/01/2024 09:55:40 Imaging Results Imaging Date Name Status LastModified by Shikha atsandi Details LastModified Time 09/02/2024 XR, chest, 2 view completed [facility] [address] [facility] [address], [place], [address], 09/02/2024 14:53:24 09/02/2024 XR, chest, 2 view completed ALEXIS [facility] (Ct Scan) [address] [place], [address], 09/05/2024 08:59:02 09/17/2024 XR, chest, 2 view completed [email or web address] [facility] (Outpt Imaging) [address] [place], [address], 10/13/2024 14:20:10 09/09/2024 XR, chest, 2 view completed [email or web address] Information not available 09/21/2024 11:19:12 10/25/2024 XR, chest, 2 view completed [email or web address] [facility] (Outpt Imaging) [address] [place], [address], 11/08/2024 11:58:40 10/25/2024 XR, chest, 2 view completed [email or web address] [facility] (Imaging) [address] [place], [address], 10/26/2024 08:39:09 Procedure Notes None recorded. Medical Equipment None Reported. Allergies Allergen ID Allergen Name Allergen Category Reaction Reaction Severity Criticality Documentation Date Start Date Code Code System Note Provider Name and Address Organization Details Recorded Time 74982 Cortes medicatio n rash Not available Not available 01/01/2018 22377 1 RxNorm Bolivar Eagle MORALES [address], [place], [address], [facility] 8 13:34:43 09872 Trulicity medicatio n nausea Not available Not available 04/01/2022 62915 96 RxNorm caroline re nause a at the 2nd dose Dk Martines [place] null, [facility] 2 16:01:30 44761 levothyro xine sodium medicatio n abdominal pain Not available low 02/17/2023 52561 RxNorm Raina Caporale, VIAL GAUGER null, [facility] 3 08:44:46 55630 Mounjaro medicatio n diarrhea severe high 07/06/2023 89145 34 RxNorm could not gera ate 10 mg dose Raina Caporale, VIAL GAUGER null, [facility] 3 08:44:50 Medications Name Sig Start [...] Short Pen Needle 31 gauge x 5/16 USE 1 PEN NEEDLE SUBCUTAN EOUSLY FOUR TIMES A DAY active Not [...] Not Available Not Available FreeStyle Joey 2 [place] USE DIRECTED 04/04 completed Not Available Not [...] WEEK BY SUBCUTAN EOUS ROUTE DIRECTED FOR 30 DAYS, FOR DM2. active Not Available Not [...] and Address Organization Details Last Updated DateTime 01/03/202 5 182.88 cm 32.3 kg/m2 060922. 98 g 75 /min 96 % 96 % 97.8 [degF] 121 mm[Hg] 68 mm[Hg] Tara Bass MA [facility] 5 08:39:54 Date Recorded Body height Body mass index (BMI) Body weight Heart rate Oxygen saturation Oxygen saturation in Arterial blood by Pulse oximetry Body temperature Systolic blood pressure Diastolic blood pressure Provider Name and Address Organization Details Last Updated DateTime 5 182.88 cm 31.5 kg/m2 538100. 43 g 74 /min 96 % 96 % 98.2 [degF] 95 mm[Hg] 61 mm[Hg] Fitz duong MA [facility] 5 10:22:01 Date Recorded Body height Body mass index (BMI) Body weight Heart rate Oxygen saturation Oxygen saturation in Arterial blood by Pulse oximetry Body temperature Systolic blood pressure Diastolic blood pressure Provider Name and Address Organization Details Last Updated DateTime 5 182.88 cm 31.2 kg/m2 656499. 25 g 67 /min 96 % 96 % 97.7 [degF] 99 mm[Hg] 62 mm[Hg] Fitz duong MA [facility] 5 10:48:45 Social History Question Answer Notes LastModified by Organizat ion Details LastModified Time Tobacco Smoking Status Former Smoker Tori marcus [facility] 07/18/2019 09:06:36 Do You Have An [...] Have You Had Close Contact With A Laboratory-raul theresakathy COVID-19 While That Case Was Ill? No [...] Start Smoking Tobacco? 14 Quit At 27 [email or web address] Information not available 07/18/2019 Are You Passively [...] MDCK, quadrivalent, preservative 019 completed HANNY Vargas [facility] 08/13/2021 10:18:17 COVID-19, mRNA, LNP-S, PF, 30 mcg/0.3 mL dose 021 completed HANNY Vargas [facility] 08/13/2021 10:18:17 MMR 008 completed HANNY Vargas, [facility] 08/13/2021 10:18:17 COVID-19, mRNA, LNP-S, PF, 30 mcg/0.3 mL dose 021 completed HANNY Vargas [facility] 08/13/2021 10:18:18 influenza, unspecified formulation 015 completed HANNY Vargas, [facility] 08/13/2021 10:18:18 influenza, unspecified formulation [facility] 10:18:18 Influenza, MDCK, quadrivalent, preservative 021 completed HANNY Vargas [facility] 08/13/2021 10:18:18 influenza, unspecified formulation 014 completed HANNY Vargas, [facility] 08/13/2021 10:18:18 influenza, unspecified formulation 018 completed HANNY Vargas [facility] 08/13/2021 10:18:18 COVID-19, mRNA, LNP-S, PF, 100 mcg/0.5mL dose or 50 mcg/0.25mL dose 022 completed HANNY Mattson [facility] 01/21/2022 14:53:08 pneumococcal polysaccharide PPV23 018 completed HANNY Yoon, [facility] 05/13/2022 14:04:29 Tdap 019 completed HANNY Yoon, [facility] 05/13/2022 14:04:29 Influenza, split virus, quadrivalent, PF 016 completed HANNY Yoon [facility] 05/13/2022 14:04:29 Influenza, MDCK, quadrivalent, PF 022 completed HANNY Castañeda, [facility] 04/14/2023 11:05:57 COVID-19, mRNA, LNP-S, bivalent, PF, 30 mcg/0.3 mL dose 022 completed HANNY Castañeda, [facility] 04/14/2023 11:05:57 Influenza, MDCK, quadrivalent, PF 023 completed HANNY Vargas, [facility] 07/06/2023 12:45:24 COVID-19, mRNA, LNP-S, PF, priscila-sucrose, 30 mcg/0.3 mL 023 completed HANNY Castañeda, [facility] 11/18/2023 14:46:19 Influenza, split virus, quadrivalent, PF 017 cancelled patient objection Not Available [facility] 02:22:08 Influenza, split virus, trivalent, PF 024 completed Bolivar Salmeron PA-C [address], [address], [facility] 06/01/2024 11:06:39 Past Encounters Encounter ID Performer Location Encounter Start Date Encounter Closed Date Diagnosis/Indication Diagnosis SNOMED-CT Code Diagnosis ICD10 Code Diagnosis Note [id number] Bolivar Salmeron PA-C Main Office [address] [address] 05/25/2015 15:55:34 05/25/2015 16:49:19 Uncontrolled type 2 diabetes mellitus 175003588 Uncontroll ed type II DM. Inconsiste nt [...] to 75 u daily for now. Hypothyroidism 56056947 Stable as per labs in February. Continue current meds. Hypertensive disorder 64323550 Stable HTN on Lisinopril . Repeat micro albumin and CMP. [id number] Bolivar Salmeron PA-C Main Office [address] [facility] [address] [place] [address] 09/12/2015 11:05:48 09/12/2015 11:54:57 Uncontrolled type 2 diabetes mellitus 608296102 E11.65 A1c is improved, but not at goal. Pt. is struggling with consistenc y in diet and exercise. Encouraged to continue recent improvemen ts in diet and add some walking at least 3-4 times weekly. Most recent glucose readings are improved. Continue same medication s. Return in 3 reorder labs. Hypertensive disorder 38 203565 I10 Stable HTN on Lisinopril . Repeat micro albumin and CMP. Psychogeni c overeating 933840870 F50.8 Pt. is inconsiste nt with his counseling . Continue taking Sertraline 50 mg. Mixed hyperlipidemia 267 195889 E78.2 Repeat fasting labs. Continue current meds. Hypothyroidism 49323319 E03.9 Stable as per labs in February. Continue current meds. [id number] Bolivar Salmeron PA-C Main Office [address] [facility] [address] [place] [address] 10/24/2015 15:54:58 10/24/2015 16:38:04 Uncontrolled type 2 diabetes mellitus 435781489 E11.65 Improved diabetic control. Goal A1c is under 7%. Pt. is advised to continue current meds and continue trying to stabilize his calorie intake and increase exercise activity. Test glucose 3 times daily is recommende d due to insulin therapy. F/u 3 m. Snoring 47158954 R06.83 Schedule sleep study. Muscle pain 25306819 M79 .1 Mixed hyperlipidemia 267 452539 E78.2 Repeat fasting labs. Continue current meds. Hypothyroidism 52387523 E03.9 Continue current meds. Repeat TSH. [id number] Bolivar Salmeron PA-C Main Office [address] [facility] [address] [place] [address] 01/22/2016 15:37:09 01/22/2016 16:39:05 Uncontrolled type 2 diabetes mellitus 672939063 E11.65 Diabetic control was affected by worsened depression , personal stress and inability to use Toujeo. Will try to get approval for Toujeo and continue same doses . Discussed having to be consistent with meds , both insulins and oral antidiabet ics. Pt. will set up alarms for taking meds and other reminders. Reassess in 3 m. or sooner. Noncomplia nce with treatment 0258217 Z91.19 Attention deficit hyperactivity disorder 200434865 F90.9 Pt. is STRONGLY ADVISED TO get back with the specialist and be restarted on ADHD meds. Hypothyroidism 15774048 E03.9 Continue current meds. REview lab test. Essential hypertension 56972703 I10 Stable control. Continue same meds. Recurrent major depression 77467657 F33.9 Connected to uncontroll ed/untreat ed ADHD. Will increase Sertraline to 100 mg daily. F/u 1 month. [id number] Bolivar Salmeron PA-C Main Office [address] [facility] [address] [place] [address] 02/20/2016 15:59:12 02/20/2016 16:57:40 Uncontrolled type 2 diabetes mellitus 118734940 E11.65 Diabetic control was affected by worsened depression , personal stress and inability to use Toujeo. Will try to get approval for Toujeo and continue same doses . Discussed having to be consistent with meds , both insulins and oral antidiabet ics. Pt. will set up alarms for taking meds and other reminders. Reassess in 3 m. or sooner. Major depr essive disorder 086606680 F32.9 Continue Sertraline 100 mg daily. Counseling is recommende d. Hypothyroidism 61770639 E03.9 Continue current meds. Repeat TSH in February. Muscle pain 23494809 M79 .1 Mixed hyperlipidemia 267 509373 E78.2 CPK to be done. Increase Crestor to 40 mg . Take every other day. [id number] Bolivar Salmeron PA-C Main Office [address] [facility] [address] [place] [address] 04/11/2016 15:12:28 04/11/2016 15:57:50 Hypothyroidism 77054966 E03.9 Recheck TFTs now. Hold thyroid med for today and tomorrow. 24 hr Holter monitor in 2 days due to week end. Palpitations 18164874 R0 0.2 Might be related to thyroid dysfunctio n. EKG is normal. decrease caffeine. Hold Synthroid for 2 days. Decrease exercise activity. NO strenuous activity for now. Labs for TFTs. 24 hr Holter. [id number] Bolivar Salmeron PA-C Main Office [address] [facility] [address] [place] [address] 04/14/2016 09:01:25 04/14/2016 09:59:52 Palpitations 25249828 R00.2 [id number] Bolivar Salmeron PA-C Main Office [address] [place] [place] [address] [place] [address] 04/15/2016 10:05:42 04/15/2016 10:42:12 Hypothyroidism 11662368 E03.9 Fatigue 04593865 R53.83 [id number] Bolivar Salmeron PA-C Main Office [address] [address] [place] [address] 05/21/2016 15:59:27 05/21/2016 16:42:27 Major depressive disorder 456220500 F32.9 Continue Sertraline 100 mg daily. Counseling is recommende d but pt. is not interested . Influenza vaccine needed [id number] 106 Z23 Hypothyroidism 17942678 E03.9 Take total of 225 mcg daily. Repeat labs in 6-8 weeks. Uncontroll ed type 2 diabetes mellitus 891213557 E11.65 Diabetic control was affected by worsened depression , personal stress and inability to use Toujeo. Will try to get approval for Toujeo and continue same doses . Discussed having to be consistent with meds , both insulins and oral antidiabet ics. Pt. will set up alarms for taking meds and other reminders. Reassess in 3 m. or sooner. [id number] Bolivar Salmeron PA-C Main Office [address] [address] [place] [address] 07/22/2016 15:56:35 07/22/2016 16:50:02 Uncontrolled type 2 diabetes mellitus 640500705 E11.65 Noncomplia nt still to monitoring , meds. ADvised to increase Lantus to 90 u daily and premeal insulin to 25 u TID. Start testing TID premeal and return with records in 4-6 weeks. Mixed hyperlipidemia 267 211548 E78.2 Continue Crestor at 40 mg . Take every other day. Repeat lipids and LFTs prior to next visit. Noncomplia nce with treatment 5601920 Z91.19 MOre than 30 minutes spent in counseling about risks of noncomplia nce to treatment and risks of uncontroll ed sugars. Hypothyroidism 12946826 E03.9 Take total of 225 mcg daily. Repeat TFTs Essential hypertension 23365151 I10 stable control on meds. [id number] Bolivar Salmeron PA-C Main Office [address] [facility] [address] [facility] [address] 08/19/2016 08:47:25 08/19/2016 09:38:39 Uncontrolled type 2 diabetes mellitus 874434903 E11.65 Overall better glucose readings due to following diet better. Pt. had one predinner hypoglycem ic episode. Will advise to lower Glipizide to 5 mg BID to avoid random hypoglycem ia. HUmalog 25 u in the am and at supper, lower to 20 u at lunch. Lantus down to 85 u daily. F/u and repeat A1c in 6 weeks. Impotence 240751199 N52. 9 Hypothyroidism 81083221 E03.9 Take total of 225 mcg daily. Repeat TFTs Snoring symptoms 1415532 00 R06.83 [id number] Bolivar Salmeron PA-C Main Office [address] [facility] [address] [place] [address] 10/27/2016 15:33:15 10/27/2016 16:40:49 Uncontrolled type 2 diabetes mellitus 855347927 E11.65 Overall better glucose readings due to following diet better. Continue Glipizide 5 mg qd. Humalog 28 u in the am , 25 at lunch and 28 at supper, Lantus continue at 90 u daily. If Toujeo or Tresiba covered under the plan, that would be preferred way to go . PT,. will look into that. F/u 3 m. Hypothyroidism 34814283 E03.9 Take total of 225 mcg daily. Repeat TFTs Mixed hyperlipidemia 267 695498 E78.2 Continue Crestor at 40 mg . Take every other day. Repeat lipids and LFTs prior to next visit. Body mass index 30+ - obesity 461727863 Z68.36 Cardiac sarcoidosis 7540 3004 D86.85 F/u with cardiologi st as scheduled. [id number] Bolivar Salmeron PA-C Main Office [address] [place] [address] 01/23/2017 09:03:03 01/23/2017 10:32:13 Uncontrolled type 2 diabetes mellitus 269752954 E11.65 Overall worse diabetes chen. Pt. struggles [...] log in 4 weeks. Mixed hyperlipidemia 267 484117 E78.2 Continue Crestor at 40 mg . See lipidologi st Dr. Preciado as scheduled in February. Paxton looking for his input here due to complexity of the case. Again, inconsiste nt diet is getting in a way. I ask pt. today to discontinu e eating eggs daily and have only 2 whole eggs per week and not eat mayonese. [id number] Bolivar Salmeron PA-C Main Office [address] [place] [address] 06/16/2017 10:01:40 06/16/2017 10:59:21 Uncontrolled type 2 diabetes mellitus 567390050 E11.65 Uncontroll ed type II DM. Inconsiste [...] Juan Carlos Ashford. F/u 2 m. Hypothyroidism 32372191 E03.9 Take total of 225 mcg daily. Repeat TFTs Inflammati on of rotator cuff tendon 680442515 M65.811 consider ortho referral. Exposure t o Hepatitis C virus 937469287 Z20.5 Body mass index 30+ - obesity 657421292 E66.9 Z68.35 Screening for malignant neoplasm of colon 641960643 Z12.11 [id number] Bolivar Salmeron PA-C Main Office [address] [place] [address] 06/29/2017 09:33:57 06/29/2017 10:38:36 Shoulder tendinitis 867841939 M75.81 Refer to an orthopedis t for cortisone shots. Uncontroll ed type 2 diabetes mellitus 536411621 E11.65 Uncontroll ed type II DM. Inconsiste [...] Dr. Juan Carlos Ashford. Hypertensive disorder 38 788847 I10 stable renal tests and no microalbum inuria. pt. is on ACEI. Body mass index 30+ - obesity 228669812 E66.9 Z68.36 Attention deficit hyperactivity disorder 106225668 F90.9 Estella. will,be made for him for counseling here in the office and also for [facility] in [facility] to address ADHD and get back on meds. [id number] Bolivar Salmeron PA-C Main Office [address] [facility] [address] [place] [address] 07/27/2017 10:28:28 07/27/2017 11:35:18 Immunization refused 743183993 Z28.21 Uncontroll ed type 2 diabetes mellitus 329297049 E11.65 Diabetes improved due to changes as [...] as per referral and counselor. Essential hypertension 66370897 I10 stable control on meds. Recurrent major depression 60670176 F33.9 Continue counseling with Colette weekly and meds. Attention deficit hyperactivity disorder 409708362 F90.9 [facility] for eval. and treatment. Body mass index 30+ - obesity 343515813 E66.9 Z68.36 [id number] Bolivar Salmeron PA-C Main Office [address] [facility] [address] [place] [address] 08/18/2017 09:50:29 08/18/2017 10:46:39 Uncontrolled type 2 diabetes mellitus 737641952 E11.65 IMporved diabetic control . LOwer HUmalog to 25 u TID and test 2 hrpc. If still drops below 100 postmeal, keep decreasing by 2 u every 3 days. Toujeo 80 u daily. Pt. is seeing Dr. Faith batres today and will discuss lowering Glyburide as well. F/u 3 m. Attention deficit hyperactivity disorder, predominantly inattentive type 60306588 F90.0 Continue under care of [facility]. Pt. is also beeing referred to see psychiatri for SSRI med adjustment s. Will continue counseling . Abnormal foot pulse 6943 7003 R09.89 [id number] Bolivar Salmeron PA-C Main Office [address] [facility] [address] [place] [address] 01/01/2018 12:57:38 01/01/2018 14:16:45 Uncontrolled type 2 diabetes mellitus 867493253 E11.65 Increase Toujeo to 110 u daily. [...] as scheduled for PE. Mixed hyperlipidemia 267 337818 E78.2 Continue Crestor at 40 mg . See lipidologi st Dr. Preciado as scheduled in February. Paxton looking for his input here due to complexity of the case. Again, inconsiste nt diet is getting in a way. I ask pt. today to discontinu e eating eggs daily and have only 2 whole eggs per week and not eat mayonese. Hypothyroidism 83198881 E03.9 Take total of 225 mcg daily. Repeat TFTs Candidiasis of skin 4988 3006 B37.2 Hypertensive disorder 38 944423 I10 stable renal tests and no microalbum inuria. pt. is on ACEI. [id number] Bolivar Salmeron PA-C Main Office [address] [facility] [place] [address] 03/01/2018 09:00:07 03/01/2018 10:24:00 Adult health examination 425787761 Z00.00 Mixed hyperlipidemia 267 667265 E78.2 Continue Crestor at [address] Preciado as scheduled in February. Paxton looking for his input here due to complexity of the case. Again, inconsiste nt diet is getting in a way. I ask pt. today to discontinu e eating eggs daily and have only 2 whole eggs per week and not eat mayonese. Hypothyroidism 31293886 E03.9 Take total of 225 mcg daily. TFTs were normal. Uncontroll ed type 2 diabetes mellitus 364674193 E11.65 Increase Toujeo to 110 u daily. [...] F/u as scheduled for PE. Essential hypertension 29971355 I10 stable control on meds. Administra tion of viral vaccine 51236942 Z23 Screening for malignant neoplasm of colon 104675580 Z12.11 Administra tion of pneumococcal vaccine 99509144 Z23 Screening for malignant neoplasm of prostate 945911353 Z12.5 Attention deficit hyperactivity disorder 973948188 F90.9 f/u psych. Obstructiv e sleep apnea syndrome 19859838 G47.33 Continue using CPAP. Pt. was encouraged to use it more than 4 hrs per night. Coronary atherosclerosis 195164927 I25.10 f/u cardiology . Cardiac sarcoidosis 7540 3004 D86.85 F/u with cardiology . Major depr essive disorder 746897869 F32.9 F/u psych and counseling . Body mass index 30+ - obesity 350265169 E66.9 Z68.36 Primary er ectile dysfunction 334551221 N52.9 [id number] Bolivar Salmeron PA-C Main Office [address] [facility] [address] [place] [address] 09/13/2018 14:29:34 09/13/2018 15:57:50 Uncontrolled type 2 diabetes mellitus 279854047 E11.65 Increase Toujeo to 110 u daily. [...] F/u as scheduled for PE. Essential hypertension 24035253 I10 stable control on meds. Hypothyroidism 82456394 E03.9 Take total of 225 mcg daily. Repeat TFTs. Screening for malignant neoplasm of colon 239262392 Z12.11 Pt. is overdue. Attention deficit hyperactivity disorder 086835896 F90.9 f/u psych. Major depr essive disorder 432934707 F32.9 F/u psych and counseling . Mixed hyperlipidemia 267 700766 E78.2 f/u with Dr. Preciado. Body mass index 30+ - obesity 333769579 E66.9 Z68.35 [id number] Madi Teixeira MD Main Office [address] [address] 01/11/2019 09:43:04 01/11/2019 11:03:56 Attention deficit hyperactivity disorder 203028577 F90.9 f/u psych. Hypothyroidism 03032048 E03.9 Take total of 225 mcg daily. Repeat TFTs. Essential hypertension 00799682 I10 stable control on meds. Uncontroll ed type 2 diabetes mellitus 669338320 E11.65 Pt. is advised to start using CGM for testing , as he does not have time for fingerstic ks at work. Rx sent in for 14 day Joey. Continue same meds. F/u 3 m or sooner. Administra tion of viral vaccine 21353886 Z23 Mixed hyperlipidemia 267 005401 E78.2 f/u with Dr. Preciado. Hernia of anterior abdominal wall 905611526 K43.9 PT. has large ventral and ? umbilical hernia. Will schedule CT. Body mass index 30+ - obesity 323127604 E66.9 Z68.35 [id number] Madi Teixeira MD Main Office [address] [address] 04/12/2019 09:17:50 04/12/2019 10:23:21 Essential hypertension 65377638 I10 stable control on meds. Uncontroll ed type 2 diabetes mellitus 143284818 E11.65 Glycemic control improved . Pt. is following vegetarian diet and tries to stay active. Increase Humalog to 33 u at lunch adn 35 at supper. Continue Toujeo 110 u daily. Add small snack prelunch to avoid hypoglycem ia , lower calories at lunch and dinner. F/u 3 m. 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 Hypothyroidism 96689820 E03.9 repeat labs prior to next visit. Body mass index 30+ - obesity 834829169 E66.9 Z68.35 [id number] Madi Teixeira MD Main Office [address] [address] 07/18/2019 08:44:41 07/18/2019 10:11:05 Adult health examination 335112376 Z00.00 Uncontroll ed type 2 diabetes mellitus 882315114 E11.65 Glycemic control is stable, although not [...] labs prior to next visit. Essential hypertension 40630644 I10 stable control on meds. Hypothyroidism 03182105 E03.9 repeat labs prior to next visit. Obstructiv e sleep apnea syndrome 16882796 G47.33 Continue using CPAP. Primary er ectile dysfunction 713971224 N52.9 Mixed hyperlipidemia 267 073630 E78.2 f/u with Dr. Preciado. 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 073600293 E11.3299 F/u with ophthalmol ogist as scheduled. Coronary atherosclerosis 850224711 I25.10 f/u cardiology . Cardiac sarcoidosis 7540 3004 D86.85 F/u with cardiology . Attention deficit hyperactivity disorder 819055873 F90.0 f/u psych. Major depr ession single episode, in partial remission 44511619 F32.4 F/u psych and counseling . [id number] Madi Teixeira MD Main Office [address] [facility] [address] [facility] [place] [address] 03/23/2020 11:04:57 03/23/2020 12:22:49 Uncontrolled type 2 diabetes mellitus 397315623 E11.65 Glycemic control is not ideal. Pt. [...] nonpr 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 014158659 E11.3299 F/u with ophthalmol ogist as scheduled. Major depr ession single episode, in partial remission 71802225 F32.4 F/u psych and counseling . Hypothyroidism 81542891 E03.9 continue current meds. Essential hypertension 14734067 I10 stable control on meds. Coronary atherosclerosis 542978211 I25.10 f/u cardiology . [id number] Madi Teixeira MD Main Office [address] [facility] [address] [facility] [place] [address] 06/22/2020 14:29:22 06/22/2020 15:14:45 Uncontrolled type 2 diabetes mellitus 154706697 E11.65 Glycemic control is not ideal. Pt. [...] other meds the same. F/u 6 weeks. [id number] Madi Teixeira MD Telehealt [address] [facility] [address] [place] [address] 07/02/2020 08:43:13 07/02/2020 14:37:14 Generalized anxiety disorder 37038040 F41.1 Continue current meds. F/u with psych as scheduled for f/u on med changes. If episodes of breathing problem reoccur, pt. will call me. Obstructiv e sleep apnea syndrome 33911289 G47.33 recommend to contact sleep medicine office and see if full mask can be replaced with partial coverage mask due to anxiety and difficulty sleeping. [id number] Bolivar Salmeron PA-C Main Office [address] [facility] [address] [place] [address] 11/27/2020 15:32:42 11/27/2020 16:24:57 Uncontrolled type 2 diabetes mellitus 779142733 E11.65 Glycemic control is improved due to [...] do upload prior to visit. Essential hypertension 84062909 I10 stable control on meds. [id number] Bolivar Salmeron PA-C Main Office [address] [address] [place] [address] 03/20/2021 15:35:45 03/20/2021 17:00:54 Adult health examination 113492121 Z00.00 Vaccines: UTD, COVID vaccinatio n in October1Colono scopy: UTD Cardiac sarcoidosis 7540 3004 D86.85 Follow up with cardiology . Last visit December 2019 and indicated 6 month follow up at that time- overdue. Coronary atherosclerosis 242983415 I25.10 Follow up with cardiology . Essential hypertension 29058630 I10 Stable. Continue current medication . 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 461900852 E11.3299 Follow up with ophthalmol ogist as scheduled in March. Hypothyroidism 10063910 E03.9 Will recheck labs. Continue current medication s. Major depr ession single episode, in partial remission 47640340 F32.4 Follow up psych and counseling . Mixed hyperlipidemia 267 684206 E78.2 Elevated triglyceri do on 03/13/21. Follow up with cardiologi . Obstructiv e sleep apnea syndrome 65073724 G47.33 Stable. Using CPAP nightly. Psychogeni c overeating 318750979 F50.89 Weight gain of 5lbs since December. Follow up psych and counseling . Uncontroll ed type 2 diabetes mellitus 239410746 E11.65 A1C today of 7.9%- improvemen t [...] weeks with meter. Attention deficit hyperactivity disorder 828689211 F90.0 Follow up psych Hypoglycemia 765738597 E 16.2 Benign pro static hyperplasia 298577595 N40.0 [id number] Regan Laird MD Main Office [address] [facility] [address] [facility] [place] [address] 08/13/2021 09:57:15 08/13/2021 11:19:31 Uncontrolled type 2 diabetes mellitus 654354236 E11.65 A1C today is high due diet and also pt. did not start trulicity. WE will try at 0.75 mg weekly and lower insulin by 10-20 u on tojeo. Also, plan to decrease glyburide if pt. tolerates theraputic dose of trulicity. Pt. was advised to return to diabetic portion control. Repeat labs in 6 weeks. Essential hypertension 23169070 I10 Stable. Continue current medication . 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 [id number] Regan Laird MD Main Office [address] [facility] [address] [facility] [place] [address] 01/21/2022 14:46:47 01/21/2022 15:45:35 Essential hypertension 02048658 I10 stable on current meds. 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 156485655 E11.3299 Follow up with ophthalmol ogist Uncontroll ed type 2 diabetes mellitus 555439830 E11.65 Tresiba will be 80 u BID to improved overnight glucose. Novolog 30 inn the am and at lunch 35 u at dinner. Lower glyburide to 5 mg BID, Increase trulicity to 1.5 mg weekly, continue metformin. F/u 6 weeks. Mixed hyperlipidemia 267 787195 E78.2 Elevated triglyceri do on 03/13/21. Follow up with cardiologi st. Hypothyroidism 30156338 E03.9 Will recheck labs. Continue current medication s. [id number] Regan Laird MD Main Office [address] [facility] [address] [facility] [address] 04/01/2022 15:53:54 04/01/2022 16:51:09 Adult health examination 520142332 Z00.00 Vaccines: UTD, COVID vaccinatio n in October1Colono scopy: UTD Uncontroll ed type 2 diabetes mellitus 657982823 E11.65 Tresiba will be 80 u BID [...] for med adjustment . Psychogeni c overeating 454356025 F50.89 Continue therapy. Primary er ectile dysfunction 611152992 N52.9 not on meds. Obstructiv e sleep apnea syndrome 21738508 G47.33 Stable. Using CPAP nightly. Mixed hyperlipidemia 267 120144 E78.2 repeat fasting lipids. Continue current meds and low carb diet. 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 153029448 E11.3299 Follow up with ophthalmol ogist Major depr ession single episode, in partial remission 36815774 F32.4 Follow up psych and counseling . Hypothyroidism 53165925 E03.9 Will recheck labs. Continue current medication s. Cardiac sarcoidosis 7540 3004 D86.85 Follow up with cardiology in May. 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 Essential hypertension 15658963 I10 stable on current meds. Coronary atherosclerosis 525969172 I25.10 Follow up with cardiology . Ingrowing toenail 515881 009 L60.0 refer to feather boner . Diabetic on insulin 1707 62970 Z79.4 [id number] Behzad Gabriel MD Telehealt h [address] [facility] [address] [facility] [address] 05/13/2022 10:03:13 05/14/2022 11:21:45 COVID-19 495557999 U07.1 advised pt to hold statin for 1 week, to avoid tadalafil for 1 week and to cut buspirone dose in 1/2 (5mg bid) for 1 week as well Counseling 077505088 Z71 .9 Health advice, education or counseling done for COVID 19 [id number] Regan Laird MD Main Office [address] [address] 07/04/2022 14:25:33 07/04/2022 15:51:46 Uncontrolled type 2 diabetes mellitus 069089289 E11.65 Improving diab control on Mounjaro , but pt. is several diabetic medication s. I would like him to reduce glyburide first down to 5 mg BID and lower Toujeo by 5 u. Continue Invokana and metfromin , increase Mounjaro to 5 mg weekly. Goal A1c is under 7%. F/u 6 weeks 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 344990018 E11.3299 Follow up with ophthalmol ogist Essential hypertension 56868651 I10 stable on current meds. Hypothyroidism 11711446 E03.9 Will recheck labs. Continue current medication s. Major depr ession single episode, in partial remission 71884995 F32.4 Follow up psych and counseling . 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 [id number] Regan Laird MD Main Office [address] [place] [address] 11/05/2022 11:04:22 11/05/2022 12:06:41 Diabetic on insulin 071118834 Z79.4 Uncontroll ed type 2 diabetes mellitus 520293907 E11.65 Pt. have been skipping Mounjaro 5 [...] nonpr 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 510265087 E11.3299 Follow up with ophthalmol ogist Mixed hyperlipidemia 267 051020 E78.2 repeat fasting lipids. Continue current meds and low carb diet. [id number] Regan Laird MD Main Office [address] [place] [address] 12/31/2022 15:03:43 12/31/2022 15:52:00 Uncontrolled type 2 diabetes mellitus 936596335 E11.65 Elevated A1c still despite multiple diabetic meds and high amount of insulin. Pt. reports no hypoglycem ia. Suggest to increase mounjaro to 7.5 mg weekly for 4 weeks , then 10 mg weekly. Lower glyburide to 5 mg daily only to avoid hypoglycem ia. F/u 6 weeks. Essential hypertension 65644625 I10 stable on current meds. Long-term current use of insulin 629504889 Z79.4 Pt. has glucagon pen. Bilateral age-related nuclear cataracts 1904102160 49129 H25.13 f/u with ophthalmol ogist. Retinopath y due to diabetes mellitus 4886328 E13.319 Follow up with ophthalmol ogist [id number] Regan Laird MD Main Office [address] [place] [address] 02/13/2023 08:44:58 02/13/2023 09:52:34 Diabetic on insulin 091703997 Z79.4 Continue same dose of Toujeo. Retinopath y due to type 2 diabetes mellitus 406654501 E11.319 follow with ophthalmol ogist. Diabetic control [...] ular risks, ie CAD, obesity. Essential hypertension 34657130 I10 stable on current meds. Uncontroll ed type 2 diabetes mellitus 558869586 E11.65 Elevated A1c 8.2% still despite multiple diabetic meds and high amount of insulin. Pt. reports no hypoglycem ia. Continue mounjaro 7.5 mg weekly, Jardiance 25 mg and glyburide to 5 mg daily only to avoid hypoglycem ia. F/u 6 weeks. 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 627989399 E11.3299 Follow up with ophthalmol ogist Mixed hyperlipidemia 267 823316 E78.2 repeat fasting lipids. Continue current meds and low carb diet. [id number] Regan Laird MD Main Office [address] [place] [address] 04/14/2023 11:03:22 04/14/2023 12:16:36 Adult health examination 280521840 Z00.00 Vaccines are up to date.Colon oscopy: UTD. repeat PSA. Essential hypertension 61550050 I10 stable on current meds. Mixed hyperlipidemia 267 574630 E78.2 repeat fasting lipids in 2-3 m. Continue current meds and low carb low fat diet. Uncontroll ed type 2 diabetes mellitus 436066066 E11.65 Elevated A1c 8.0% still despite multiple diabetic meds and high amount of insulin. Pt. reports no hypoglycem ia. Continue mounjaro 7.5 mg weekly, Jardiance 25 mg and glyburide to 2.5 mg daily to avoid hypoglycem ia. F/u 3 months. Pt. will switch to Dexcom as it is preferred on his insurance. Retinopath y due to type 2 diabetes mellitus [id number] E11.319 follow with ophthalmol ogist. Diabetic control is improved 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 853564536 E11.3299 Follow up with ophthalmol ogist Long-term current use of insulin 482612354 Z79.4 Pt. has glucagon pen. Attention deficit hyperactivity disorder 250042867 F90.0 Follow up psych Cardiac sarcoidosis 7540 3004 D86.85 Has scheduled f/u in May. Has not seen them since 2020. Past pulmonary evaluation in 2016 with PET scan did not show pulmonary sarcoid. Pt. has no dyspnea. Coronary atherosclerosis 672011076 I25.10 Follow up with cardiology . Continue ASA, statin therapy. Hypothyroidism 43067246 E03.9 Will recheck labs. Continue current medication s. Major depr ession single episode, in partial remission 04358010 F32.4 Follow up psych and counseling . Obstructiv e sleep apnea syndrome 20428849 G47.33 Stable. Using CPAP nightly. Primary er ectile dysfunction 988699302 N52.9 not on meds. Psychogeni c overeating 645008215 F50.89 Restart psychother apy. Body mass index 30+ - obesity 051210845 E66.9 Z68.35 continue working on reducing calories and increase exercise. Increase dose of MOunjaro. Nocturia 823368047 R35.1 [id number] Regan Laird MD [facility] [address] [place] [address] 07/06/2023 12:38:06 07/06/2023 14:35:11 Adverse reaction to drug 66821435 T50.905A Likely pt symptoms were combinatio n [...] 5 mg when pt feels better. Dehydration 97424790 E86 .0 recheck bmp, continue hydration. Retinopath y due to type 2 diabetes mellitus 012265466 E11.3293 Continue current insulins, Jardiance 25 and small dose glyburide 2.5 mg and metformin . Hold Mounjaro. Repeat A1c in 6 weeks. Plan to restart at smaller dose of 5 mg. Continue low stewart diet and use CGM to test glucose. [id number] Regan Laird MD Main Office [address] [place] [address] 08/14/2023 08:27:55 08/14/2023 09:06:26 Uncontrolled type 2 diabetes mellitus 896486346 E11.65 Improved A1c on increased dose of [...] he is overdue for some labs. Hypothyroidism 37687932 E03.9 Will recheck labs. Continue current medication s. Long-term current use of insulin 200743329 Z79.4 Pt. has glucagon pen. Benign pro static hyperplasia 008839140 N40.0 [id number] Bolivar Salmeron PA-C Main Office [address] [place] [address] 11/18/2023 14:32:33 11/18/2023 15:25:46 Uncontrolled type 2 diabetes mellitus 858299636 E11.65 Improved A1c on increased dose of Mounjaro 10 mg . PT. has rare hypoglycem ia . recommend to lower metfromin to 1500 mg daily due to reported diarrhea. I recommend remote uploads and switch back to Joey 3 CGM. Sample sensors provided today. Glucagon sent to pharmacy and hypoglycem ia instructio ns were reviewed. F/u 3 m. Essential hypertension 00499300 I10 stable on current meds. Hypothyroidism 64670300 E03.9 Will recheck labs. Continue current medication s. Long-term current use of insulin 655064464 Z79.4 Pt. has glucagon pen. [id number] Behzad Gabriel MD Main Office 3640 [facility] [address] [place] [address] 03/02/2024 09:33:38 03/02/2024 10:30:01 Mild nonproliferative retinopathy due to type 2 diabetes mellitus 1462956206 32930 E11.3299 Hyperglyce phyllis due to type II [...] F/u 3 m ari sooner. Essential hypertension 26852291 I10 stable on current meds. Continue low sodium diet. Hypothyroidism 40956940 E03.9 recheck labs. Continue current medication s. [id number] Behzad Gabriel MD Main Office [address] [facility] [address] [place] [address] 06/01/2024 09:30:48 06/01/2024 10:46:14 Adult health examination 849651753 Z00.00 Vaccines are up to date.Colon oscopy: UTD. repeat PSA. F/u with cardiologi for annual visit. Uncontroll ed type 2 diabetes mellitus 115093208 E11.65 Improved A1c on increased dose of Mounjaro 10 mg . Goal A1c is under 7.5%. Recom to stop glyburide 2.5 mg . CGM is reviewed with pt. Showed elevations across the day , partic after meals. Increase toujeo by 4 u first. After 1 week can attempt to increase by another 2-4 u. Pt. is back on [employer] for monitoring , but uploads are not possible due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
[2025-01-05 16:54] LABS: MANUAL DIFF FLAG NO
[2025-01-05 17:15] LABS: Basophils Absolute Auto 0.1 X10*3/uL (0.0-0.2); Basophils Percent Auto 0.6 % (0-2); Eosinophils Absolute Auto 0.3 X10*3/uL (0.0-0.4); Eosinophils Percent Auto 3.7 % (0-4); Hematocrit 49.7 % (42.0-52.0); Hemoglobin 17.4 g/dl (14.0-18.0); Imm Gran Abs Auto 0.06 X10*3/uL (0.00-0.03); Imm Gran Pct Auto 0.7 % (0.0-0.4); Lymphocytes Absolute Auto 2.4 X10*3/uL (1.2-4.9); Lymphocytes Percent Auto 26.4 % (20-40); Mean Corpuscular Hemoglobin 31.2 pg (27.0-33.0); Mean Corpuscular Volume 89.2 fL (80.0-98.0); Mean Platelet Volume 9.2 fL (9.4-12.4); Monocytes Absolute Auto 0.8 X10*3/uL (0.1-1.2); Monocytes Percent Auto 8.6 % (2-11); Neutrophils Absolute Auto 5.4 x10*3/uL (2.0-8.3); Platelet Count 254 X10*3/uL (160-400); Red Blood Count 5.57 X10*6/uL (4.60-5.80); Red Cell Distribution Width 13.3 % (11.0-16.0)
[2025-01-05 18:00] LABS: Alanine Aminotransferase 47 U/L (0-40); Albumin Level 4.5 g/dL (3.5-5.0); Alkaline Phosphatase 37 U/L (39-117); Anion Gap 15 (12-20); Aspartate Amino Transferase 31 U/L (5-37); Bilirubin Total 0.5 mg/dL (0.0-1.0); Blood Urea Nitrogen 31 mg/dL (9-16); Calcium 10.3 mg/dL (8.4-10.2); Carbon Dioxide 25 mmol/L (22-29); Chloride 104 mmol/L (96-108); Estimated Glomerular Filt Rate > 60; Glucose Random 224 mg/dL (60-115); Iron 68 mcg/dL (45-160); Percent Iron Saturation 19 % (15-50); Potassium 4.5 mmol/L (3.3-5.1); Sodium 139 mmol/L (135-145); Total Iron Binding Capacity 366 mcg/dL (228-428); Total Protein 7.4 g/dL (6.5-8.0); Unsaturated Iron Binding 298 ug/dL
[2025-01-05 18:07] LABS: Ferritin 87 ng/mL (20-250); TSH reflex Free T4 1.53 uIU/mL (0.32-4.0)
[2025-01-05 18:19] LABS: Folate 6.9 ng/mL (> or = 4.0); Vitamin B12 368 pg/mL (200-900)
[2025-01-05 19:20] LABS: Erythrocyte Sedimentation Rate 2 MM/HR (0-15)
[2025-01-06 06:18] LABS: Estimated Average Glucose 174 mg/dL; Hemoglobin A1c % 7.7 % (<6.0); Total Hemoglobin (HGBA1C) 4571.2791 umol/L
[2025-01-06 11:44] LABS: CRP High Sensitivity 0.3 mg/L; Transferrin 346 mg/dL (188-341)
[2025-01-09 21:49] LABS: Lyme Abs Screen <0.90 index
[2025-01-10 09:09] LABS: Anti Nuclear Antibody Screen NEGATIVE (NEGATIVE)
== END 2025-01-05 16:28 | disposition home or self-care (01) ==
LOC: HO.LAB 16:27
PROVIDERS: PCP Physician Assistant Medical; Visit Provider Clinical Nurse Specialist Psychiatric/Mental Health
DX: F33.41 Major depressive disorder, recurrent, in partial remission (principal); E11.9 Type 2 diabetes mellitus without complications; F90.2 Attention-deficit hyperactivity disorder, combined type
CPT/HCPCS: 36415; 80053; 82607; 82728; 82746; 83036; 83540; 83735; 84425; 84443; 84466; 85025; 85652; 86038; 86141; 86617; 86618

== ENCOUNTER 2025-03-22 07:16 | Outpatient (REF) | payer OTHER, SELFPAY ==
--- NOTE | ~2025-03-22 | CT_ITS ---
CLINICAL HISTORY: R41.840 - Attention and concentration deficit --- Additional Notes or Special Instructions: memory changes CT head without contrast Comparison: None provided Findings: No intra-axial mass, midline shift, hydrocephalus, or acute hemorrhage. Mild global volume loss. The visualized paranasal sinuses and mastoid air cells are normal. The orbits are within normal limits. No skull fracture. IMPRESSION: 1. No acute intracranial findings. This document has been electronically signed by: Key Kelly MD on 03/22/2025 10:55:53
== END 2025-03-22 07:17 | disposition home or self-care (01) ==
LOC: HO.CT 07:16
PROVIDERS: PCP Physician Assistant Medical; Visit Provider Clinical Nurse Specialist Psychiatric/Mental Health
DX: R41.840 Attention and concentration deficit (principal)
CPT/HCPCS: 70450

== ENCOUNTER → 2025-03-22 07:22 | Outpatient (BNV) | payer OTHER, SELFPAY | PROVIDERS: PCP Physician Assistant Medical; Visit Provider Radiology Diagnostic Radiology | DX: G31.89 Other specified degenerative diseases of nervous system (principal) | CPT/HCPCS: 70450 ==

== ENCOUNTER 2025-03-28 12:31 | Outpatient (AMB) | payer OTHER, SELFPAY ==
--- NOTE | 2025-03-28 12:59 | MHC.OFFVISPS ---
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: DEPRESSION Toe Former Stitchdowns Required: No Medication List - Last Reconciled 03/28/25 by Jessica Li APRN blood-glucose sensor (FreeStyle Joey 3 Sensor device) As directed bupropion HCl XL (Wellbutrin XL) 150 mg PO QAM buspirone 10 mg PO BID empagliflozin (Jardiance) 25 mg PO DAILY fenofibrate 160 mg PO DAILY glyburide 2.5 mg PO DAILY insulin aspart (niacinamide) 100 unit/mL (3 mL) (Fiasp FlexTouch U-100 Insulin) subcut insulin glargine U-300 conc (Toujeo SoloStar U-300 Insulin) units subcut lamotrigine 200 mg PO BID levothyroxine (Synthroid) 200 mcg PO DAILY levothyroxine (Synthroid) 50 mcg PO DAILY lisinopril 40 mg PO DAILY lorazepam 1 mg PO DAILY PRN metformin ER 500 mg PO TID metoprolol succinate ER 25 mg PO DAILY niacin ER 1,000 mg PO DAILY omega-3 acid ethyl esters 2 caps PO BID pregabalin 75 mg PO BID rosuvastatin 40 mg PO DAILY sertraline 100 mg PO DAILY tadalafil mg PO tirzepatide (Mounjaro) mg subcut HPI- Psychiatric Chief Complaint: DEPRESSION HPI Narrative: Pt follow up via telehealth appointment to review labs and CT scan; CT scan normal. Labs look good except blood sugar, a1c, lipid panel and kidney fx. these are known chronic problems pt is working on; his PCP got copies of labs and he discussed with PCP. Pt reports streess is still high but not as intense as when last seen; His mind is more clear and thinking/memory feeling better to patient. He is cmpliant with meds. No SI or HI; less overwhelmed and less discouraged Past Psychiatric History: HCC: He is dx with MDD, JAMISON and ADHD; dx with ADHD age 42; He and previous provider have been considering Bipolar II disorder. He has never been hospitalized; Medication Trials: Ritalin-ineffective Amphetamine salt- ? worse symptoms Subjective Subjective Subjective Medication Compliance: Yes Side effects from medications: No Mental Status Exam Mental Status Exam Patient Appearance: Appropriate Patient Orientation: Person, Place, Time and Situation Level of Consciousness: Awake Patient Behavior: Appropriate Mood Description: Anxious Patient Cognition Impaired: Yes Ability to Follow Directions: Good Speech Pattern: Clear Memory Description: Episodic Impaired and Working Impaired Hallucinations: None Delusions: Not Present Thought Process: Distracted and Rumination Thought Content: positive for Preoccupation Judgement: Fair Telehealth Telehealth Telehealth Platform: Telephone ([email or web address]) Location of provider rendering services: practice address Location of patient: address on file Patient Identification confirmed using: Name, : Yes Telehealth method: voice only Patient verbally consented to treatment: Yes Patient verbally consented to billing insurance company: Yes Patient informed of any privacy concerns related to visit: Yes Minutes spent on Phone/Video with Pt.: 15 Assessment and Plan Assessment & Plan (1) Memory changes: Status: Acute Code(s): R41.3 - Other amnesia (2) Cognitive attention deficit: Status: Acute Code(s): R41.840 - Attention and concentration deficit (3) ADHD (attention deficit hyperactivity disorder), combined type: Status: Acute Code(s): F90.2 - Attention-deficit hyperactivity disorder, combined type (4) JAMISON (generalized anxiety disorder): Status: Acute Code(s): F41.1 - Generalized anxiety disorder (5) Major depressive disorder, recurrent, in partial remission: Status: Acute Code(s): F33.41 - Major depressive disorder, recurrent, in partial remission Plan reviewed with patient<del>:</del> Labs ordered CT of head ordered follow up for septemebr Counseling and coordination of Care Pt. Self Management counseling: Med illness tx adherence, Mod caffeine/ETOH intake, Nutrition education and improvement, General coping skills and Problem solving Medication management counseling: Effectiveness, Side effects, Dosing range, Duration, Drug interaction and Adherence Diagnosis and Prognosis Counseling: Accuracy of diagnosis, Prognosis over time, Impact of diagnosis on life functions, Problematic behaviors secondary to diagnosis and Adequacy of current interventions Details: I spent 25 minutes reviewing the record, seeing the patient and documenting in the medical record. Counseling provided to the patient/caregiver as outlined below. Addressed patient/caregiver concerns regarding current medication regime including effective adherence. Addressed patient/caregiver concerns regarding diagnosis and prognosis including accuracy of diagnosis, prognosis over time, impact of diagnosis. Addressed patient/caregiver concerns regarding impact of recent stressors. [facility] Medical History (Updated 01/05/25 @ 15:06 by Jessica Li APRN) HTN (hypertension) Retinopathy Hypothyroidism Hypercholesteremia Social History: Family/Social History: grew up in [place] with parents both parents professional artisits only child went to college age 30 in 2001 12 year old son works as RN in hospital Family History of Mental illness mother and father both severe ADHD son is ADHD Substance History: Substance use: Tobacco none ETOH none marijuana none opiates none rx pills none street drugs none Trauma History: none Coding Level of Care Code Tele Est Pt Level 3 (80221) Diagnoses Memory changes R41.3 Cognitive attention deficit R41.840 ADHD (attention deficit hyperactivity disorder), combined type F90.2 JAMISON (generalized anxiety disorder) F41.1 Major depressive disorder, recurrent, in partial remission F33.41
--- OUTSIDE RECORDS SUMMARY | 2025-03-28 13:19 | XMS_ITS | Data Portability ---
Author Organization [facility] [address] Address [address] [place] [address] Assessment No assessment recorded. Plan of Treatment Reminders Order Date Submit Date Provider Last Modified By Organization Details Last Modified Time Details Appointments None recorded. Lab None recorded. Referral None recorded. Procedures None recorded. Surgeries None recorded. Imaging None recorded. Medication Orders Augmentin 875 mg-125 mg tablet 2023 [id number], [address] [place], [place], [id number], 4 19:13:10 naproxen 500 mg tablet 2023 024 [place] [facility] [id number], [address] [place], [place], [id number], 4 19:13:12 Patient TargetsNo targets recorded. Patient InstructionsNo instructions recorded. Reason for Referral None Reported. Medical Equipment None Reported. Allergies Allergen ID Allergen Name Allergen Category Reaction Reaction Severity Criticality Documentation Date Start Date Code Code System Note Provider Name and Address Organization Details Recorded Time 440283 [facility]etta medicatio n rash Not available Not available 01/09/2024 75473 1 [facility] 18:15:13 Medications Name Sig Start Date Stop Date Status Note LastModified by Organization Details LastModified Time metformin 500 mg tablet TAKE 2 TABLETS BY MOUTH TWICE DAILY 01/08 completed Not Available Not Available Not Available Augmentin 875 mg-125 mg tablet Take 1 tablet every 12 hours by oral route with meal(s) for 10 days. 05/11/ 2024 active Not Available Not Available Not [...] - Reported Heart rate Body temperature Systolic And Diastolic Provider Name and Address Organization Details Last Updated DateTime 4 182.88 cm 33.9 kg/m2 978663. 09 g 97 % 97 % 6 75 /min 99 [degF] 136/71 mm[Hg] Lori Burns PA - [facility] 4 18:13:45 Social History Question Answer Notes LastModified by Organizat ion Details LastModified Time Have You Had A Flu Shot This Season? Yes Information no t available 01/09/2024 Have You Had Direct Contact, Or Contact During Intimacy, With Monkeypox Rash, Scabs, Or Body Fluids From A Person With Monkeypox? No Information not available 01/09/2024 What Is Your Relationship Status? Information not available 01/09/2024 Have You Recently Traveled Abroad? No Information not available 01/09/2024 Sex: Unknown Functional Status Question Answer Note LastModified by Organizat ion Details LastModified Time Do you use any illicit or recreational drugs? No Information not available 01/09/2024 Do you or have you ever used any other forms of tobacco or nicotine? No Information not available 01/09/2024 Are you currently employed? Yes Information not available 01/09/2024 Mental Status None recorded. Family History Nothing Reported. Medical History No medical history recorded. Past Encounters Encounter ID Performer Location Encounter Start Date Encounter Closed Date Diagnosis/Indication Diagnosis SNOMED-CT Code Diagnosis ICD10 Code Diagnosis Note [id number] [address] [facility] [address] [place] [address] 03/07/2022 17:13:04 03/07/2022 18:48:51 [id number] [place] [address] [facility] [address] [place] [phone] 01/09/2024 17:25:24 01/09/2024 18:49:34 Dental abscess [id number] K04.7 Rx augmentin bid x 10 d for infectionN aprosyn for painReview ed with patient potential adverse side effects of the medication .recommend warm compresses warm salt water garglessof t foodsf/u with dentist FOX - he will go ThursdayPati ent advised to follow up as needed for worsening symptoms or no improvemen t.Discusse d concerning red flags with patient and [...] ID Cabrera Member ID Guarantor Name 01/09/[address] [place] [address] [id number] 1 Steve Golden [id number] Steve Golden
== END 2025-03-28 12:32 | disposition home or self-care (01) ==
LOC: HO.HOP 12:31
PROVIDERS: PCP Physician Assistant Medical; Visit Provider Clinical Nurse Specialist Psychiatric/Mental Health
DX: R41.3 Other amnesia (principal); R41.840 Attention and concentration deficit; F90.2 Attention-deficit hyperactivity disorder, combined type; F41.1 Generalized anxiety disorder; F33.41 Major depressive disorder, recurrent, in partial remission
CPT/HCPCS: 99213

== ENCOUNTER 2025-05-02 10:07 | Outpatient (AMB) | payer OTHER, SELFPAY ==
--- NOTE | 2025-05-02 09:08 | MHC.OFFVISPS ---
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 Required: No Medication List - Last Reconciled 05/02/25 by Jessica Li APRN blood-glucose sensor (FreeStyle Joey 3 Sensor device) As directed bupropion HCl XL (Wellbutrin XL) 150 mg PO QAM buspirone 10 mg PO BID empagliflozin (Jardiance) 25 mg PO DAILY fenofibrate 160 mg PO DAILY glyburide 2.5 mg PO DAILY insulin aspart (niacinamide) 100 unit/mL (3 mL) (Fiasp FlexTouch U-100 Insulin) subcut insulin glargine U-300 conc (Toujeo SoloStar U-300 Insulin) units subcut lamotrigine 200 mg PO BID levothyroxine (Synthroid) 200 mcg PO DAILY levothyroxine (Synthroid) 50 mcg PO DAILY lisinopril 40 mg PO DAILY lorazepam 1 mg PO DAILY PRN metformin ER 500 mg PO TID metoprolol succinate ER 25 mg PO DAILY niacin ER 1,000 mg PO DAILY omega-3 acid ethyl esters 2 caps PO BID pregabalin 75 mg PO BID rosuvastatin 40 mg PO DAILY sertraline 100 mg PO DAILY tadalafil mg PO tirzepatide (Mounjaro) mg subcut HPI- Psychiatric Chief Complaint: DEPRESSION HPI Narrative: Pt seen for follow up re: depression, anxiety, attention,concentration and memeory difficultites via telehealth appointment. Recent labs and CT scan normal. Labs look good except blood sugar, a1c, lipid panel and kidney fx. these are known chronic problems pt is working on; his PCP got copies of labs and he discussed with PCP. Pt reports stress is still high but not as intense as when last seen; His mind is more clear and thinking/memory feeling better to patient. He is still having trouble focusing, remembering, and learning new systems at work; he is struggling with new procedures at work. He is compliant with meds. No SI or HI; less overwhelmed and less discouraged Past Psychiatric History: HCC: He is dx with MDD, JAMISON and ADHD; dx with ADHD age 42; He and previous provider have been considering Bipolar II disorder. He has never been hospitalized; Medication Trials: Ritalin-ineffective Amphetamine salt- ? worse symptoms Subjective Subjective Subjective Medication Compliance: Yes Side effects from medications: No Mental Status Exam Mental Status Exam Patient Appearance: Appropriate Patient Orientation: Person, Place, Time and Situation Level of Consciousness: Awake Patient Behavior: Appropriate Mood Description: Anxious Patient Cognition Impaired: Yes Ability to Follow Directions: Good Speech Pattern: Clear Memory Description: Episodic Impaired and Working Impaired Hallucinations: None Delusions: Not Present Thought Process: Distracted and Rumination Thought Content: positive for Preoccupation Judgement: Fair Telehealth Telehealth Telehealth Platform: Other (please specify) ([email or web address]) Location of provider rendering services: practice address Location of patient: address on file Patient Identification confirmed using: Name, : Yes Telehealth method: video Patient verbally consented to treatment: Yes Patient verbally consented to billing insurance company: Yes Patient informed of any privacy concerns related to visit: Yes Minutes spent on Phone/Video with Pt.: 35 Assessment and Plan Assessment & Plan (1) Cognitive attention deficit: Status: Acute Code(s): R41.840 - Attention and concentration deficit (2) ADHD (attention deficit hyperactivity disorder), combined type: Status: Acute Code(s): F90.2 - Attention-deficit hyperactivity disorder, combined type (3) JAMISON (generalized anxiety disorder): Status: Acute Code(s): F41.1 - Generalized anxiety disorder (4) Major depressive disorder, recurrent, in partial remission: Status: Acute Code(s): F33.41 - Major depressive disorder, recurrent, in partial remission Plan increase wellbutrin XL to 300mg daily in am for attention and concentration reviewed with patient Labs results CT of head no acute pathology follow up in 4-6 weeks Medications: New bupropion HCl XL (Wellbutrin XL) 300 mg PO QAM 90 tabs 1RF Discontinued bupropion HCl XL (Wellbutrin XL) Discontinued Reason: Doctor's Order 150 mg PO QAM 90 tabs 2RF Counseling and coordination of Care Pt. Self Management counseling: Med illness tx adherence, Mod caffeine/ETOH intake, Nutrition education and improvement, General coping skills and Problem solving Medication management counseling: Effectiveness, Side effects, Dosing range, Duration, Drug interaction and Adherence Diagnosis and Prognosis Counseling: Accuracy of diagnosis, Prognosis over time, Impact of diagnosis on life functions, Problematic behaviors secondary to diagnosis and Adequacy of current interventions Details: I spent 45 minutes reviewing the record, seeing the patient and documenting in the medical record. Counseling provided to the patient/caregiver as outlined below. Addressed patient/caregiver concerns regarding current medication regime including effective adherence. Addressed patient/caregiver concerns regarding diagnosis and prognosis including accuracy of diagnosis, prognosis over time, impact of diagnosis. Addressed patient/caregiver concerns regarding impact of recent stressors. [facility] Medical History (Updated 01/05/25 @ 15:06 by Jessica Li APRN) HTN (hypertension) Retinopathy Hypothyroidism Hypercholesteremia Social History: Family/Social History: grew up in [place] with parents both parents professional artisits only child went to college age 30 in 2001 12 year old son works as RN in hospital Family History of Mental illness mother and father both severe ADHD son is ADHD Substance History: Substance use: Tobacco none ETOH none marijuana none opiates none rx pills none street drugs none Trauma History: none Coding Level of Care Code Est Pt Level 5 (29711) Diagnoses Cognitive attention deficit R41.840 ADHD (attention deficit hyperactivity disorder), combined type F90.2 JAMISON (generalized anxiety disorder) F41.1 Major depressive disorder, recurrent, in partial remission F33.41
== END 2025-05-02 10:08 | disposition home or self-care (01) ==
LOC: HO.HOP 10:07
PROVIDERS: PCP Physician Assistant Medical; Visit Provider Clinical Nurse Specialist Psychiatric/Mental Health
DX: F90.2 Attention-deficit hyperactivity disorder, combined type (principal); F41.1 Generalized anxiety disorder; F33.41 Major depressive disorder, recurrent, in partial remission
CPT/HCPCS: 98006

== ENCOUNTER 2025-06-13 10:02 | Outpatient (AMB) | payer OTHER, SELFPAY ==
--- NOTE | 2025-06-13 09:32 | MHC.OFFVISPS ---
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 Medication List - Last Reconciled 06/13/25 by Jessica Li APRN blood-glucose sensor (FreeStyle Joey 3 Sensor device) As directed bupropion HCl XL (Wellbutrin XL) 300 mg PO QAM buspirone 10 mg PO BID empagliflozin (Jardiance) 25 mg PO DAILY fenofibrate 160 mg PO DAILY glyburide 2.5 mg PO DAILY insulin aspart (niacinamide) 100 unit/mL (3 mL) (Fiasp FlexTouch U-100 Insulin) subcut insulin glargine U-300 conc (Toujeo SoloStar U-300 Insulin) units subcut lamotrigine 200 mg PO BID levothyroxine (Synthroid) 200 mcg PO DAILY levothyroxine (Synthroid) 50 mcg PO DAILY lisinopril 40 mg PO DAILY lorazepam 1 mg PO DAILY PRN metformin ER 500 mg PO TID metoprolol succinate ER 25 mg PO DAILY niacin ER 1,000 mg PO DAILY omega-3 acid ethyl esters 2 caps PO BID pregabalin 75 mg PO BID rosuvastatin 40 mg PO DAILY sertraline 100 mg PO DAILY tadalafil mg PO tirzepatide (Mounjaro) mg subcut HPI- Psychiatric Chief Complaint: DEPRESSION HPI Narrative: Pt seen for follow up re: depression, anxiety, attention,concentration and memeory difficultites via telehealth appointment. Pt reports much improvement with increasee in wellbutrin. No side effects reported. Recent labs and CT scan normal. Labs look good except blood sugar, a1c, lipid panel and kidney fx. these are known chronic problems pt is working on; his PCP got copies of labs and he discussed with PCP. Pt reports stress is still high but not as intense as when last seen; His mind is more clear and thinking/memory feeling better to patient. He is still having trouble focusing, remembering, and learning new systems at work; he is struggling with new procedures at work. He is compliant with meds. No SI or HI; less overwhelmed and less discouraged Past Psychiatric History: HCC: He is dx with MDD, JAMISON and ADHD; dx with ADHD age 42; He and previous provider have been considering Bipolar II disorder. He has never been hospitalized; Medication Trials: Ritalin-ineffective Amphetamine salt- ? worse symptoms Subjective Subjective Subjective Medication Compliance: Yes Side effects from medications: No Mental Status Exam Mental Status Exam Patient Appearance: Appropriate Patient Orientation: Person, Place, Time and Situation Level of Consciousness: Awake Patient Behavior: Appropriate Mood Description: Anxious Patient Cognition Impaired: Yes Ability to Follow Directions: Good Speech Pattern: Clear Memory Description: Episodic Impaired and Working Impaired Hallucinations: None Delusions: Not Present Thought Process: Distracted and Rumination Thought Content: positive for Preoccupation Judgement: Fair Telehealth Telehealth Telehealth Platform: [employer] Location of provider rendering services: practice address Location of patient: address on file Patient Identification confirmed using: Name, : Yes Telehealth method: video Patient verbally consented to treatment: Yes Patient verbally consented to billing insurance company: Yes Patient informed of any privacy concerns related to visit: Yes Minutes spent on Phone/Video with Pt.: 18 Assessment and Plan Assessment & Plan (1) Cognitive attention deficit: Status: Acute Code(s): R41.840 - Attention and concentration deficit (2) ADHD (attention deficit hyperactivity disorder), combined type: Status: Acute Code(s): F90.2 - Attention-deficit hyperactivity disorder, combined type (3) JAMISON (generalized anxiety disorder): Status: Acute Code(s): F41.1 - Generalized anxiety disorder (4) Major depressive disorder, recurrent, in partial remission: Status: Acute Code(s): F33.41 - Major depressive disorder, recurrent, in partial remission Plan increase wellbutrin XL to 300mg daily in am for attention and concentration reviewed with patient Labs results revied CT of head no acute pathology follow up in 4-6 weeks Medications: Refilled bupropion HCl XL (Wellbutrin XL) 300 mg PO QAM 90 tabs 1RF lamotrigine 200 mg PO BID 180 tabs 2RF buspirone 10 mg PO BID 180 tabs 2RF Counseling and coordination of Care Pt. Self Management counseling: Med illness tx adherence, Mod caffeine/ETOH intake, Nutrition education and improvement, General coping skills and Problem solving Medication management counseling: Effectiveness, Side effects, Dosing range, Duration, Drug interaction and Adherence Diagnosis and Prognosis Counseling: Accuracy of diagnosis, Prognosis over time, Impact of diagnosis on life functions, Problematic behaviors secondary to diagnosis and Adequacy of current interventions Details: I spent 30 minutes reviewing the record, seeing the patient and documenting in the medical record. Counseling provided to the patient/caregiver as outlined below. Addressed patient/caregiver concerns regarding current medication regime including effective adherence. Addressed patient/caregiver concerns regarding diagnosis and prognosis including accuracy of diagnosis, prognosis over time, impact of diagnosis. Addressed patient/caregiver concerns regarding impact of recent stressors. 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
== END 2025-06-13 10:03 | disposition home or self-care (01) ==
LOC: HO.HOP 10:03
PROVIDERS: PCP Physician Assistant Medical; Visit Provider Clinical Nurse Specialist Psychiatric/Mental Health
DX: F33.41 Major depressive disorder, recurrent, in partial remission (principal); F90.2 Attention-deficit hyperactivity disorder, combined type; F41.1 Generalized anxiety disorder
CPT/HCPCS: 99214